=== PATIENT | female | born 1970 | race Asian ===

== ENCOUNTER → 2016-07-15 | Outpatient (CLI) | payer OTHER ==
[~2016-07-15] MED LIST: ASPCH81 PO; MULTCHW PO; OMEG10007 PO; PANT1TAB48 PO; VIVELLE TOP
--- NOTE | 2016-07-15 16:26 | MAMMOGRAPHY REPORT ---
BILATERAL DIGITAL SCREENING MAMMOGRAM TOMOSYNTHESIS WITH CAD: 07/15/2016 CLINICAL HISTORY: Routine screening. Patient has no complaints. TECHNIQUE: Breast tomosynthesis in addition to standard 2D mammography was performed. Current study was also evaluated with a Computer Aided Detection (CAD) system. COMPARISON: Comparison is made to exams dated: 07/13/2015 mammogram, 07/10/2014 mammogram, 07/22/2013 mammogram, 07/02/2012 mammogram, and 06/29/2011 mammogram - [facility]. BREAST COMPOSITION: The tissue of both breasts is heterogeneously dense, which may obscure small ma sses. FINDINGS: No suspicious masses, calcifications, or areas of architectural distortion are noted in e ither breast. There has been no significant interval change compared to prior exams. IMPRESSION: ACR BI-RADS CATEGORY 1: NEGATIVE There is no mammographic evidence of malignancy. A 1 year screening mammogram is recommended. The p atient will receive written notification of the results. Approximately 10% of breast cancers are not detected with mammography. A negative mammographic repor t should not delay biopsy if a clinically suggestive mass is present. Valentine Engel M.D. /:07/15/2016 14:43:37 Vice President: Pauline CUELLARR M, [facility] letter sent: Normal 1/2 BI-RADS Code: ACR BI-RADS Category 1: Negative
== END | disposition home or self-care (01) ==
LOC: C.MAMM 14:09
PROVIDERS: ATTEND Internal Medicine
DX: Z12.31 Encounter for screening mammogram for malignant neoplasm of breast (principal)

== ENCOUNTER → 2017-01-02 | Outpatient (CLI) | payer OTHER ==
[2017-01-02 16:51] LABS: BASO % 0.2 %; BASO ABS # 0.01 K/uL (0-0.2); COMPLETE YES; EOS % 1.1 %; HEMATOCRIT 41.6 % (37-47); IG% 0.2 %; LYMPH % 35.1 %; LYMPH ABS # 1.63 K/uL (1.2-3.4); MEAN CELL VOLUME 93.7 fL (80-100); MEAN CORPUSCULAR HGB CONC 34.1 g/dl (32-36); MEAN PLATELET VOLUME 9.8 fL (7.4-10.4); MONO % 7.3 %; NEUT % 56.1 %; PLATELET COUNT 428 K/uL (130-400); RED BLOOD COUNT 4.44 M/uL (4.2-5.4); WHITE BLOOD COUNT 4.64 K/uL (4.8-10.8)
== END | disposition home or self-care (01) ==
LOC: C.LABBC 12:57
PROVIDERS: ATTEND Internal Medicine
DX: R53.83 Other fatigue (principal)

== ENCOUNTER → 2017-07-17 | Outpatient (CLI) | payer OTHER ==
[~2017-07-17] MED LIST changes: +PANT1TAB3 PO; -PANT1TAB48 PO
--- NOTE | 2017-07-18 14:37 | MAMMOGRAPHY REPORT ---
BILATERAL DIGITAL SCREENING MAMMOGRAM TOMOSYNTHESIS WITH CAD: 07/17/2017 CLINICAL HISTORY: Routine screening. Patient has no complaints. TECHNIQUE: Breast tomosynthesis in addition to standard 2D mammography was performed. Current study was also evaluated with a Computer Aided Detection (CAD) system. COMPARISON: Comparison is made to exams dated: 07/15/2016 mammogram, 07/10/2014 mammogram, 01/06/2014 u ltrasound, 07/04/2013 mammogram, 07/02/2012 mammogram, and 06/29/2011 mammogram - [facility]. BREAST COMPOSITION: The tissue of both breasts is heterogeneously dense, which may obscure small mas ses. FINDINGS: The parenchymal pattern is unchanged. No developing mass, architectural distortion or clus ter of suspicious microcalcifications is seen in either breast. IMPRESSION: ACR BI-RADS CATEGORY 2: BENIGN There is no mammographic evidence of malignancy. A 1 year screening mammogram is recommended. The pa tient will receive written notification of the results. Approximately 10% of breast cancers are not detected with mammography. A negative mammographic report should not delay biopsy if a clinically suggestive mass is present. Consuelo Acosta M.D. ay/:07/17/2017 14:59:52 Desolderer: Jazmin CUELLAR(R)(Janet), [facility] letter sent: Normal 1/2 BI-RADS Code: ACR BI-RADS Category 2: Benign
== END | disposition home or self-care (01) ==
LOC: C.MAMM 14:12
PROVIDERS: ATTEND Internal Medicine
DX: Z12.31 Encounter for screening mammogram for malignant neoplasm of breast (principal)

== ENCOUNTER → 2017-08-21 | Outpatient (CLI) | payer OTHER ==
[2017-08-21 11:57] LABS: EOS % 0.3 %; EOS ABS # 0.01 K/uL (0-0.5); HEMATOCRIT 40.3 % (37-47); LYMPH ABS # 1.36 K/uL (1.2-3.4); MEAN CELL VOLUME 95.5 fL (80-100); MEAN CORPUSCULAR HEMOGLOBIN 33.2 pg (25-34); MEAN CORPUSCULAR HGB CONC 34.7 g/dl (32-36); MEAN PLATELET VOLUME 10.1 fL (7.4-10.4); MONO % 11.6 %; MONO ABS # 0.35 K/uL (0.11-0.59); NEUT % 43.1 %; PLATELET COUNT 303 K/uL (130-400); RED CELL DISTRIBUTION WIDTH CV 12.2 % (11.5-14.5); RED CELL DISTRIBUTION WIDTH SD 42.6 fL (36.4-46.3); WHITE BLOOD COUNT 3.02 K/uL (4.8-10.8)
== END | disposition home or self-care (01) ==
LOC: C.LAB1850 11:07
PROVIDERS: ATTEND Internal Medicine
DX: D47.3 Essential (hemorrhagic) thrombocythemia (principal)

== ENCOUNTER → 2017-10-10 | Outpatient (CLI) | payer OTHER | END | disposition home or self-care (01) | LOC: C.PATHSPEC 16:46 | PROVIDERS: ATTEND Urology | DX: N39.46 Mixed incontinence (principal) ==

== ENCOUNTER 2023-12-23 08:55 | Inpatient (IN) ==
[2023-12-23 09:42] LABS: Basophils # (auto) 0.01 K/uL (0.00-0.20); Basophils % (auto) 0.1 %; Eosinophils # (auto) 0.03 K/uL (0.00-0.50); Eosinophils % (auto) 0.4 %; Hematocrit (blood only) 33.9 % (37.0-47.0); Hemoglobin 11.6 g/dl (12.0-16.0); Immature Granulocytes # (auto) 0.02 K/uL (0.01-0.20); Immature Granulocytes % (auto) 0.3 %; Lymphocytes # (auto) 0.75 K/uL (1.20-3.40); Lymphocytes % (auto) 10.1 %; Mean Corpuscular Hgb Conc 34.2 g/dL (32.0-36.0); Mean Corpuscular Volume 93.6 fL (80.0-100.0); Mean Platelet Volume 9.5 fL (9.4-12.4); Monocytes # (auto) 0.63 K/uL (0.11-0.59); Monocytes % (auto) 8.5 %; Neutrophils # (auto) 5.97 K/uL (1.40-6.50); Neutrophils % (auto) 80.6 %; Platelet Count 347 K/uL (130-400); RDW Coefficient of Variation 11.6 % (11.5-14.5); RDW Standard Deviation 39.3 fL (36.4-46.3); Red Blood Count 3.62 M/uL (4.20-5.40); White Blood Count 7.41 K/ul (4.8-10.8)
[2023-12-23 09:53] LABS: Appearance Urine Cloudy (Clear); Bacteria Urine Automated None Seen (None Seen); Bilirubin Urine Negative (Negative); Blood Urine 3+ (Negative); Cast Urine Automated 0-2 /lpf (0-2); Color Urine Dark Yellow; Epithelial Cell Urine Auto 0-2 /hpf (0-2); Glucose Urine UA Negative (Negative); Ketones Urine Negative (Negative); Leukocyte Esterase Urine Trace (Negative); Nitrite Urine Positive (Negative); Protein Urine 1+ (Negative); Specific Gravity Urine 1.006 (1.000-1.030); Urobilinogen Urine Negative (Negative); WBC Urine Automated 0-5 /hpf (0-5); pH Urine 5.5 (4.5-7.5)
[2023-12-23 10:08] LABS: Albumin Globulin Ratio 1.5 (0.9-2); Albumin Level 4.2 gm/dl (3.4-5.0); BUN Creatinine Ratio 10.1 (10-20); Bilirubin,Total 0.7 mg/dl (0.2-1.0); Calcium 9.3 mg/dl (8.6-10.3); Creatinine Clr Calc Pharmacy 18.1 ml/min; Est GFR (African American) 18.3 ml/min; Est GFR (Non-African American) 15.8 ml/min; Globulin 2.8 gm/dl (2.5-4.0); Potassium 4.3 mmol/L (3.5-5.1)
[2023-12-23] MEDS: SODIUM CHLORIDE 0.9% 500 ML IV ONE (10:18)
[2023-12-23] MEDS: ONDANSETRON INJ 2 MG/ML 2 ML VIAL IV STA (10:18)
[2023-12-23] MEDS: HYDROmorphone INJ 0.5 MG/0.5 ML SYR IV PRN (10:18)
--- NOTE | 2023-12-23 11:00 | CT Scan Report ---
CT OF THE ABDOMEN AND PELVIS WITHOUT CONTRAST CLINICAL HISTORY: Generalized abdominal, recent laser stone removal, acute RF. COMPARISON STUDY: CT of the abdomen and pelvis December 15, 2023. TECHNIQUE: Axial images of the abdomen and pelvis were obtained without IV contrast. Images were revi ewed in the axial, sagittal, and coronal planes. Automated exposure control was utilized for the sameer dy. A dose lowering technique was utilized adhering to the principles of ALARA. FINDINGS: Lung bases are unremarkable. No pneumatosis, free air or portal venous gas is present. Ther e is hepatic steatosis. No biliary or pancreatic ductal dilatation is present. The spleen, adrenal gl ands and pancreas are unremarkable on unenhanced exam. There is no evidence for a bowel obstruction. A small amount of presacral/perirectal fluid and stranding is present. There is no fluid collection. Right ureteral stent is well-positioned. There is mild bilateral hydronephrosis. No ureteral calculi are present. There is a punctate left renal calculus. The bladder is significantly distended. A small amount of gas within the bladder is present. A 6.4 x 4.2 cm round hyperdensity within the dependent aspect the bladder suggests clot. There is also a small amount of hyperdense material within the righ t collecting system. IMPRESSION: 1. Right ureteral stent in place. No ureteral calculi. Punctate left renal calculus. Mild bilateral h ydronephrosis, likely related to bladder distention. 2. Significantly distended bladder which contains a 6.4 x 4.2 cm hyperdense focus suggestive of clot. Hyperdense material within the right collecting system suggests clot. Contrast from recent procedure could appear similar but is considered less likely. 3. Trace gas within the bladder related to recent instrumentation. 4. Small amount of presacral/perirectal fluid and stranding. ACT 112: Negative or not required by law. Electronically signed by: Dre Mendez M.D. 12/23/2023 10:57 AM
--- NOTE | 2023-12-23 11:14 | History & Physical Report ---
Date of Service December 23, 2023 Assessment & Plan (1) Acute renal failure: Plan: Admit to med/telemetry Currently stable and nontoxic-appearing Presented to the ED today with ongoing abdominal pain/distention, back pain, and dizziness since her urologic procedure on 12/21/2023 Creatinine noted to be 3.17 today, baseline creatinine prior to her procedure was 0.6 CT of the abdomen pelvis without contrast shows her recently placed right ureteral stent in proper position, mild bilateral hydronephrosis, significantly distended bladder containing hyperdense foci suggestive of clots as well as hyperdense material within the right collecting system suggestive of clots. Patient's renal failure likely due to obstruction from urinary retention likely caused by clots from her recent urologic procedure The ED staff did speak with on-call urology, appreciate their assistance, they agree with the plan to place Cleary catheter at this time, start bladder irrigation to assist with clot removal, and ongoing monitoring for now I did discuss the patient with the urology team as well, no current plans for OR at this time as the stent is in proper position and the patient is without significant hydronephrosis, they are okay with the patient eating at this time Status post 500 mL normal saline, 0.5 mg IV Dilaudid, and 0.4 mg IV Zofran in the ED At the time of admission nurses have tried a 16 and 18 [place] Cleary catheter without success, they will try a larger size now. I did let urology know that we will keep the patient n.p.o. until Cleary catheter has been successfully inserted and confirmed to be functioning properly in case she needs to be taken to the OR this afternoon Will wait to order additional IV fluids until we confirm proper Cleary placement and drainage as we do not want to exacerbate her already known obstruction Monitor intake/output every 6 hours Urology consult placed Patient was prescribed a 5-day course of Levaquin on 11/20/2023 after procedure, no signs of infection at this time, will hold further dosing until we ensure her renal function is improving Will repeat BMP and mag this afternoon to ensure her renal function is improving with treatment of her obstruction As needed Tylenol and Dilaudid for pain Bilateral SCDs for DVT prophylaxis Renal dialysis diet until renal function improves AM CBC, BMP, mag, PT/INR (2) Urinary retention: Plan: Patient noted to have significant bladder distention on CT of the abdomen pelvis without contrast, likely due to postprocedural blood clots causing bladder outlet obstruction UA not suggestive of infection at this time, will hold antibiotics for now Rest of plan per acute renal failure (3) Abdominal pain: Plan: Patient's abdominal and back pain are likely due to her known bladder outlet obstruction, significant distention, and mild bilateral hydronephrosis Rest of care per acute renal failure plan Plan The patient was discussed with Dr. Pritchett at the time of the admission History of Present Illness Chief Complaint: abdominal pain, back pain, dizziness Primary Care Provider: Daryn Wilburn MD Iqra is a 53-year-old female with a past medical history significant for Nephrolithiasis status post cystoscopy with right ureteroscopy, retrograde pyelogram, ureteral dilation, laser destruction of stone, incision of calyceal diverticulum, and insertion of stent catheter with Dr. Lea on 12/21/2023, schwannoma/left-sided neck mass status post removal on 03/14/2029, cervical cancer status post hysterectomy, and adjustment disorder with anxiety who presented to the [facility] ED on 12/23/2023 with complaints of abdominal pain, back pain, dizziness since her urologic procedure on 12/21/2023. She was noted to be tachycardic at 95 on arrival but otherwise stable. Labs were significant for hemoglobin of 11.6 (down from 13.9 on 11/29/2023), creatinine of 3.17 (baseline is near 0.6), BUN of 32, sodium of 133, and UA with cloudy urine, 1+ protein, 3+ blood, and nitrate positive, trace leukocyte esterase, 3-5 RBC, and negative for WBC and bacteria. CT of the abdomen pelvis without contrast was read as right ureteral stent in place. No ureteral calculi. Punctate left renal calculus. Mild bilateral hydronephrosis, likely related to bladder distention. Significantly distended bladder which demonstrates a 6.4 x 4.2 cm hyperdense focus suggestive of a clot. Hyperdense material within the right collecting system suggest clot contrast from recent procedure could appear similar but is considered less likely. Trace gas within the bladder related to recent instrumentation. Small amount of presacral/perirectal fluid and stranding without fluid collection. Prior to admission the patient was given 500 mL normal saline, 4 mg IV Zofran, and 0.5 mg IV Dilaudid.The ED did speak with neurology who was in agreement with Cleary catheter placement, they also rec ommended bladder irrigation as the blood clots noted on CT are likely causing her obstruction. Patient was lying in bed in mild distress due to abdominal discomfort at the time of the exam with her bedside, history was obtained from both. They confirm that the patient has had ongoing difficulty urinating with progressive bladder distention and abdominal pain since her procedure on 12/21/2023. Her back pain progressed after her abdominal pain. No recent fever/chills, chest pain, shortness of breath/cough, nausea/vomiting, diarrhea, and recent trauma. When asked, they state that she has been using the prescribed Percocet and Pyridium for pain. They deny the patient using recent NSAIDs. Please refer to Dr. Pritchett's attestation for any changes to the treatment plan. Allergies Allergy/AdvReac Type Severity Reaction Status Date / Time promethazine Allergy Mild HALLUCINATI Verified 12/23/23 11:48 ONS chlorpheniramine Allergy Unknown HEART RACES Verified 12/23/23 11:48 dextromethorphan Allergy Unknown HEART RACED Verified 12/23/23 11:48 phenylpropanolamine Allergy Unknown Unknown Verified 12/23/23 11:48 pseudoephedrine Allergy Unknown HEART RACED Verified 12/23/23 11:48 amitriptyline AdvReac Unknown Unknown Verified 12/23/23 11:48 citalopram [From Celexa] AdvReac Unknown Unknown Verified 12/23/23 11:48 escitalopram [From Lexapro] AdvReac Unknown Unknown Verified 12/23/23 11:48 sertraline AdvReac Unknown Unknown Verified 12/23/23 11:48 solifenacin [From Vesicare] AdvReac Unknown Unknown Verified 12/23/23 11:48 CONTAC COLD MEDICINE Allergy Unknown HEART RACES Uncoded 12/23/23 11:48 Home Medications Medication Instructions Recorded Confirmed Type aspirin 81 mg tablet,delayed 81 mg PO QAM 07/12/18 12/23/23 History release (Aspir-) cholecalciferol (vitamin D3) 25 1,000 unit PO QAM 07/12/18 12/23/23 History mcg (1,000 unit) capsule (Vitamin D3) multivitamin 1 tab PO QAM 07/12/18 12/23/23 History omeprazole 40 mg capsule,delayed 40 mg PO QAM #90 caps 08/24/23 12/23/23 Rx release ascorbic acid (vitamin C) 500 mg 500 mg PO QAM 12/13/23 12/23/23 History capsule mirabegron 50 mg tablet,extended 50 mg PO QAM 12/13/23 12/23/23 History release 24 hr (Myrbetriq) levofloxacin 500 mg tablet 500 mg PO DAILY 5 days #5 tabs 12/21/23 12/23/23 Rx oxycodone-acetaminophen 7.5 mg-325 1 tab PO Q8H PRN pain #7 tabs 12/21/23 12/23/23 Rx mg tablet (Percocet) phenazopyridine 200 mg tablet 200 mg PO Q8H PRN pain #10 tabs 12/21/23 12/23/23 Rx (Pyridium) tamsulosin 0.4 mg capsule 0.4 mg PO HS #30 caps 12/21/23 12/23/23 Rx venlafaxine 75 mg capsule,extended 75 mg PO QAM 12/23/23 12/23/23 History release 24 hr Past Med/Surg History Problem List (Updated 12/23/23 @ 12:10 by Pablo Lowery MD) Acute urinary retention (Acute) Acute renal failure (Acute) Abdominal pain Urinary retention Acute renal failure Kidney stones Arthritis of carpometacarpal (CMC) joint of right thumb Globus sensation Numbness and tingling of right leg Right leg pain Dyspnea on exertion Temporomandibular joint (TMJ) pain Blurry vision Daily headache Dizziness Osteoarthritis of carpometacarpal joint of left thumb Hyperlipidemia Unsatisfactory cervical cytology smear Routine gynecological examination Hot flashes Elevated platelet count Neck pain Pes anserinus bursitis of both knees Adjustment disorder with anxiety (Acute) Low back pain (Acute) Health care maintenance 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 (Acute) 1B- 2003-post abdominal hysterectomy with lymph node dissection/radiotherapy with chemo sensitization November 19, 2003 Stress incontinence in female (Acute) Urinary bladder incontinence Medical History (Updated 12/23/23 @ 12:10 by Pablo Lwoery MD) Stress incontinence in female Adjustment disorder with anxiety Osteoarthritis of carpometacarpal (CMC) joint of left thumb Radiation cystitis Hyperlipidemia TMJ (temporomandibular joint syndrome) "only have problems when I eat something hard" Lumbar radiculopathy denies Cervical cancer S/p hysterectomy with lymph node dissection and XRT and chemo () Sensation of lump in throat occasionally per patient Schwannoma post resection - 03/14/2019 - in [facility] Colitis UNDER CONTROL GERD (gastroesophageal reflux disease) Surgical History History of cystoscopy cysto, mid-urethral sling 09/13/21: [place]: LMA#4 without issue History of surgery on left wrist left thumb CMC joint; 11/16/23 [facility] Hx of foot surgery LEFT-BONE GRAFT History of esophagogastroduodenoscopy (EGD) History of colonoscopy History of hysterectomy total hyster 2004 Family History Father Myocardial infarction Hypertension Mother Myocardial infarction Hypertension Stroke Diabetes Grandfather (Maternal) Diabetes Social History Smoking Status: Never smoker Second Hand Exposure: No; Do You Dip or Chew Tobacco: No; Hx Alcohol Use: No Hx Substance Use: No Preferred Language: Lao Communication Ability: Effective Visual Impairment: No Limitations 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: 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 Beliefs That Will Affect Care: None marital status: Current Living Situation: Spouse current occupational status: employed current occupation: [employer] Feels Safe at Home: Yes Childhood Exposure to Second-Hand Smoke: Yes Diet: regular Dental Care, Regularly: Yes Physical Activity Frequency: 1-2 Times per Week Seatbelt Use: always Sunscreen Use: Yes Assistive Devices: Glasses Physical Exam Physical Exam: Physical Exam: General: In mild distress, stated age, well-nourished, non-toxic appearing HEENT: Normocephalic, atraumatic, no scleral icterus, pupils around round, symmetrical, and reactive to light, moist mucus membranes, trachea midline, no thyromegaly Chest/Pulm: No respiratory distress, symmetrical chest expansion, clear breath sounds throughout Cardiac: RRR, no murmurs noted Abdomen: Abdomen is distended but without signs of bruising, normoactive bowel sounds, soft, tender to palpation throughout but most tender in the suprapubic region Musculoskeletal: Symmetrical and without signs of acute trauma, upper and lower extremities with full ROM, no atrophy, spasticity, or flaccidity Extremities: Radial, dorsalis pedis, and posterior tibial pulses are intact and symmetrical, no edema noted in the BL LE's Skin: Warm, dry, no rashes , lesions, or scars noted Neuro: Alert and oriented to person, place, month, year, and president, no focal defects, no tremors noted Psych: Mild distress, calm and cooperative during the exam Results & Data Results & Data Vital Signs (Past 12 Hours) Vital Signs Temp Pulse Pulse Resp BP BP Pulse Ox 12/23/23 10:43 78 16 103/73 90 12/23/23 09:44 73 12/23/23 09:39 80 18 95 12/23/23 08:58 36.8 C 95 H 18 133/86 96 O2 Del Method 12/23/23 10:43 Room Air 12/23/23 09:44 12/23/23 09:39 Room Air 12/23/23 08:58 Room Air Laboratory Results Abnormal lab results 12/23/23 12/23/23 Range/Units 09:00 09:22 RBC 3.62 L (4.20-5.40) M/uL Hgb 11.6 L (12.0-16.0) g/dl Hct 33.9 L (37.0-47.0) % Lymph # (Auto) 0.75 L (1.20-3.40) K/uL [place] # (Auto) 0.63 H (0.11-0.59) K/uL Sodium 133 L (136-145) mmol/L BUN 32 H (6-23) mg/dl Creatinine 3.17 H (0.6-1.2) mg/dl Glucose 118 H (70-99(Fasting)) mg/dl Urine Appearance Cloudy A (Clear) Urine Protein 1+ H (Negative) Urine Blood 3+ H (Negative) Urine Nitrite Positive A (Negative) Ur Leukocyte Esterase Trace H (Negative) Urine RBC (Auto) 3-5 H (0-2) /hpf Diagnostic Findings Abdomen/Pelvis CT 12/23/23 10:12 CT OF THE ABDOMEN AND PELVIS WITHOUT CONTRAST CLINICAL HISTORY: Generalized abdominal, recent laser stone removal, acute RF. COMPARISON STUDY: CT of the abdomen and pelvis December 15, 2023. TECHNIQUE: Axial images of the abdomen and pelvis were obtained without IV contrast. Images were reviewed in the axial, sagittal, and coronal planes. Automated exposure control was utilized for the study. A dose lowering technique was utilized adhering to the principles of ALARA. FINDINGS: Lung bases are unremarkable. No pneumatosis, free air or portal venous gas is present. There is hepatic steatosis. No biliary or pancreatic ductal dilatation is present. The spleen, adrenal glands and pancreas are unremarkable on unenhanced exam. There is no evidence for a bowel obstruction. A small amount of presacral/perirectal fluid and stranding is present. There is no fluid collection. Right ureteral stent is well-positioned. There is mild bilateral hydronephrosis. No ureteral calculi are present. There is a punctate left renal calculus. The bladder is significantly distended. A small amount of gas within the bladder is present. A 6.4 x 4.2 cm round hyperdensity within the dependent aspect the bladder suggests clot. There is also a small amount of hyperdense material within the right collecting system. IMPRESSION: 1. Right ureteral stent in place. No ureteral calculi. Punctate left renal calculus. Mild bilateral hydronephrosis, likely related to bladder distention. 2. Significantly distended bladder which contains a 6.4 x 4.2 cm hyperdense focus suggestive of clot. Hyperdense material within the right collecting system suggests clot. Contrast from recent procedure could appear similar but is considered less likely. 3. Trace gas within the bladder related to recent instrumentation. 4. Small amount of presacral/perirectal fluid and stranding. ACT 112: Negative or not required by law. Electronically signed by: Dre Mendez M.D. 12/23/2023 10:57 AM Code Status & VTE Plan Code Status full code VTE Prophylaxis Plan VTE Prophylaxis will be ordered: Yes Supervising Physician Co-Signing Physician Notes patient was seen and examined , presents after Cystoscopy with right Ureteroscopy, Retrograde Pyelogram, Ureteral Dilation, Laser Destruction of Stone, Incision of calyceal diverticulum, and Insertion of Stent Catheter - Right, tolerated procedure well, she was not able to urinate well after procedure, blood work is consistent with [place], urinary bladder clot, cleary placed, 1.4 l of urine drained, she reports feeling much better GENERAL: Awake, alert, uncomfortable-appearing, in no distress HENT: Normocephalic, atraumatic. Oropharynx unremarkable. EYES: Normal conjunctiva. Sclera non-icteric. NECK: Inspection normal. Non-tender. Supple. No nuchal rigidity. FROM. No masses. RESPIRATORY: Clear to auscultation. No wheezes. No rales. Normal respiratory effort. CARDIAC: Normal rate. Normal rhythm. No murmurs. No rubs. Extremities warm and well perfused. Pulses equal. No JVD. GI: Soft, mild-distended. Generalized but mostly lower tenderness to palpation. No rebound or guarding. No masses. RECTAL: Deferred. MUSCULOSKELETAL: Atraumatic. Chest examination reveals no tenderness. The back is symmetrical on inspection without obvious abnormality. There is bilateral CVA tenderness to palpation. No joint edema. LOWER EXTREMITIES: Calves are equal size bilaterally and non-tender. No edema. No discoloration. NEURO: Normal sensorium. No sensory or motor deficits noted. SKIN: No rash or jaundice noted. A/P mild hyponatremia /acute renal failure due to obstruction, cleary placed 1.4 l of urine drained IV fluids BMP laxatives diet as tolerated minimize use of narcotics agree with above assessment and plan PG Care Time/CCT Total # of Minutes Spent Total Time Spent with Patient: Total time spent is greater than 50% in coordination of care (as documented) at patient's floor/unit and/or counseling patient: C[place] [address] INT INP/OBS CARE 2/55MIN Patient Type Established Medical Decision Making Moderate Complexity Diagnoses Acute renal failure N17.9 Urinary retention R33.9 Abdominal pain R10.9
[2023-12-23] MEDS ORDERED: HYDROmorphone INJ 0.5 MG/0.5 ML SYR IV PRN (11:23)
--- NOTE | 2023-12-23 12:11 | Emergency Department Note ---
Impression & Plan Acute renal failure, Acute urinary retention ED Provider Note NAME: FRED FERNANDEZ AGE: 53 SEX: Female INFORMANT: Patient and significant other ED PROVIDER(S): Pablo Lowery MD CHIEF COMPLAINT: Abdominal pain PLAN: Disposition: Admitted Outpatient prescription management: none Referral: None MEDICAL DECISION MAKING: Patient with no abdominal pain. She was treated with Zofran and Dilaudid. She was gently hydrated. CBC was unremarkable. Patient was afebrile. She does have acute renal failure on chemistry panel. Patient does have marked urinary retention on CT imaging. Yin catheter ordered. Did consult with urology, Dr. Butler. He agreed with catheter placement and also bladder irrigation. This was ordered. Suspect acute urinary retention causing acute renal failure. Consultation was made with the [facility] hospitalist service. Discussed the case and diagnostics as well as consultation with urology. Patient will be admitted by the hospitalist service for further management. Care/management discussed with: none Level of care consideration(s): After review of the information above and other included data, I feel the patient requires escalation of care to admission Triage Nursing notes: reviewed and agree them. Vital Signs: reviewed and remarkable for no significant abnormalities Additional History obtained from: none Chronic Medical/Social Conditions affecting care: History of cervical cancer Prior/ Outside/ External records reviewed: Operative note from 2 days ago reviewed. Patient had laser stone removal with stent placement. Differential Diagnosis: Renal colic, UTI, appendicitis, diverticulitis, mesenteric ischemia, aortic pathology, infections, inflammatory bowel disease, PUD, biliary pathology, as well as other pathologies. Diagnostics, independently interpreted by me: ECG: none Cardiac Monitoring: Cardiac monitoring ordered by me: The patient was placed on continuous cardiac monitoring and observed. It revealed a normal sinus rhythm at 78 beats per minute without ectopy or evidence of dysrhythmia. Medical decision rules: none Imaging studies: CT imaging of the abdomen pelvis reveals marked bladder distention with clot in the bladder. Stent is in place. I refer you to the EMR for further details. HPI: 53 year old Female arrives for evaluation of abdominal pain. Patient has had a laser kidney stone removal 2 days ago by [facility] urology. She notes after surgery she was feeling bloated. She is having difficulty urinating. She had pain radiating throughout her abdomen now. Pain is rated a 7 out of 10. Significant other notes that he contacted the on-call service and nurse directed them to the ER. Pt denies LOC, headache, fevers, chills, diaphoresis, visual changes, neck pain, chest pain, breathing difficulties, vomiting back pain, melena, hematochezia, numbness, weakness, lymphadenopathy, rash, or other complaints. . PAST MEDICAL HISTORY: See Below, cervical cancer, kidney stones PAST SURGICAL HISTORY: See Below, SOCIAL HISTORY: See Below, non-smoker HOME MEDICATIONS: See Below ALLERGIES: See Below VITALS: See Below PHYSICAL EXAMINATION: GENERAL: Awake, alert, uncomfortable-appearing, in no distress HENT: Normocephalic, atraumatic. Oropharynx unremarkable. EYES: Normal conjunctiva. Sclera non-icteric. NECK: Inspection normal. Non-tender. Supple. No nuchal rigidity. FROM. No masses. RESPIRATORY: Clear to auscultation. No wheezes. No rales. Normal respiratory effort. CARDIAC: Normal rate. Normal rhythm. No murmurs. No rubs. Extremities warm and well perfused. Pulses equal. No JVD. GI: Soft, mild-distended. Generalized but mostly lower tenderness to palpation. No rebound or guarding. No masses. RECTAL: Deferred. MUSCULOSKELETAL: Atraumatic. Chest examination reveals no tenderness. The back is symmetrical on inspection without obvious abnormality. There is bilateral CVA tenderness to palpation. No joint edema. LOWER EXTREMITIES: Calves are equal size bilaterally and non-tender. No edema. No discoloration. NEURO: Normal sensorium. No sensory or motor deficits noted. SKIN: No rash or jaundice noted. PROCEDURES: none CRITICAL CARE: none OBSERVATION NOTE: none Past Med/Surg History Problem List (Updated 12/23/23 @ 12:10 by Pablo Lowery MD) Acute urinary retention (Acute) Acute renal failure (Acute) Abdominal pain Urinary retention Acute renal failure Kidney stones Arthritis of carpometacarpal (CMC) joint of right thumb Globus sensation Numbness and tingling of right leg Right leg pain Dyspnea on exertion Temporomandibular joint (TMJ) pain Blurry vision Daily headache Dizziness Osteoarthritis of carpometacarpal joint of left thumb Hyperlipidemia Unsatisfactory cervical cytology smear Routine gynecological examination Hot flashes Elevated platelet count Neck pain Pes anserinus bursitis of both knees Adjustment disorder with anxiety (Acute) Low back pain (Acute) Health care maintenance 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 (Acute) 1B- 2004-post abdominal hysterectomy with lymph node dissection/radiotherapy with chemo sensitization November 19, 2003 Stress incontinence in female (Acute) Urinary bladder incontinence Medical History (Updated 12/23/23 @ 12:10 by Pablo Lowery MD) Stress incontinence in female Adjustment disorder with anxiety Osteoarthritis of carpometacarpal (CMC) joint of left thumb Radiation cystitis Hyperlipidemia TMJ (temporomandibular joint syndrome) "only have problems when I eat something hard" Lumbar radiculopathy denies Cervical cancer S/p hysterectomy with lymph node dissection and XRT and chemo () Sensation of lump in throat occasionally per patient Schwannoma post resection - 03/14/2019 - in [facility] [place] Colitis UNDER CONTROL GERD (gastroesophageal reflux disease) Surgical History History of cystoscopy cysto, mid-urethral sling 09/13/21: [place]: LMA#4 without issue History of surgery on left wrist left thumb CMC joint; 11/16/23 [facility] [place] Hx of foot surgery LEFT-BONE GRAFT History of esophagogastroduodenoscopy (EGD) History of colonoscopy History of hysterectomy total hyster 2005 Family History Father Myocardial infarction Hypertension Mother Myocardial infarction Hypertension Stroke Diabetes Grandfather (Maternal) Diabetes Social History Smoking Status: Never smoker Second Hand Exposure: No; Do You Dip or Chew Tobacco: No; Hx Alcohol Use: No Hx Substance Use: No Preferred Language: Swazi Communication Ability: Effective Visual Impairment: No Limitations 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: Normal 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: No Beliefs That Will Affect Care: None marital status: Current Living Situation: Spouse current occupational status: employed current occupation: [employer] Feels Safe at Home: Yes Childhood Exposure to Second-Hand Smoke: Yes Diet: regular Dental Care, Regularly: Yes Physical Activity Frequency: 1-2 Times per Week Seatbelt Use: always Sunscreen Use: Yes Assistive Devices: Glasses Allergies Allergies Allergy/AdvReac Type Severity Reaction Status Date / Time promethazine Allergy Mild HALLUCINATI Verified 12/23/23 11:48 ONS chlorpheniramine Allergy Unknown HEART RACES Verified 12/23/23 11:48 dextromethorphan Allergy Unknown HEART RACED Verified 12/23/23 11:48 phenylpropanolamine Allergy Unknown Unknown Verified 12/23/23 11:48 pseudoephedrine Allergy Unknown HEART RACED Verified 12/23/23 11:48 amitriptyline AdvReac Unknown Unknown Verified 12/23/23 11:48 citalopram [From Celexa] AdvReac Unknown Unknown Verified 12/23/23 11:48 escitalopram [From Lexapro] AdvReac Unknown Unknown Verified 12/23/23 11:48 sertraline AdvReac Unknown Unknown Verified 12/23/23 11:48 solifenacin [From Vesicare] AdvReac Unknown Unknown Verified 12/23/23 11:48 CONTAC COLD MEDICINE Allergy Unknown HEART RACES Uncoded 12/23/23 11:48 Home Meds Home Medications Medication Instructions Recorded Confirmed aspirin 81 mg tablet,delayed 81 mg PO QAM 07/12/18 12/23/23 release (Aspir-) cholecalciferol (vitamin D3) 25 1,000 unit PO QAM 07/12/18 12/23/23 mcg (1,000 unit) capsule (Vitamin D3) multivitamin 1 tab PO QAM 07/12/18 12/23/23 ascorbic acid (vitamin C) 500 mg 500 mg PO QAM 12/13/23 12/23/23 capsule mirabegron 50 mg tablet,extended 50 mg PO QAM 12/13/23 12/23/23 release 24 hr (Myrbetriq) venlafaxine 75 mg capsule,extended 75 mg PO QAM 12/23/23 12/23/23 release 24 hr Previous Rx's Medication Instructions Recorded omeprazole 40 mg capsule,delayed 40 mg PO QAM #90 caps 08/24/23 release levofloxacin 500 mg tablet 500 mg PO DAILY 5 days #5 tabs 12/21/23 oxycodone-acetaminophen 7.5 mg-325 1 tab PO Q8H PRN pain #7 tabs 12/21/23 mg tablet (Percocet) phenazopyridine 200 mg tablet 200 mg PO Q8H PRN pain #10 tabs 12/21/23 (Pyridium) tamsulosin 0.4 mg capsule 0.4 mg PO HS #30 caps 12/21/23 Results & Data (ED) Vital Signs Vital Signs - 24 hr 12/23/23 08:58 12/23/23 09:39 12/23/23 09:44 Temperature 36.8 C Temperature Source Temporal Artery Scan Pulse Rate 95 H 80 73 Pulse Rate [Apical] Pulse Rhythm Regular Respiratory Rate 18 18 Blood Pressure 133/86 Blood Pressure [Left Arm] Blood Pressure Mean 101 Blood Pressure Mean [Left Arm] Pulse Oximetry 96 95 Oxygen Delivery Method Room Air Room Air Sepsis Recent Fever Within 48 Hours No Sepsis New/Unexplained Change in Mental Status No Sepsis Action Taken by Nursing No Action Required 12/23/23 10:43 12/23/23 12:08 Temperature Temperature Source Pulse Rate Pulse Rate [Apical] 78 78 Pulse Rhythm Respiratory Rate 16 16 Blood Pressure Blood Pressure [Left Arm] 103/73 109/74 Blood Pressure Mean Blood Pressure Mean [Left Arm] 83 85 Pulse Oximetry 90 94 Oxygen Delivery Method Room Air Room Air Sepsis Recent Fever Within 48 Hours Sepsis New/Unexplained Change in Mental Status Sepsis Action Taken by Nursing Laboratory Data 12/23/23 09:22 12/23/23 09:22 Lab Results 12/23/23 12/23/23 Range/Units 09:00 09:22 WBC 7.41 (4.8-10.8) K/ul RBC 3.62 L (4.20-5.40) M/uL Hgb 11.6 L (12.0-16.0) g/dl Hct 33.9 L (37.0-47.0) % MCV 93.6 (80.0-100.0) fL MCH 32.0 (25.0-34.0) pg MCHC 34.2 (32.0-36.0) g/dL RDW Std Deviation 39.3 (36.4-46.3) fL RDW Coeff of [place] 11.6 (11.5-14.5) % Plt Count 347 (130-400) K/uL MPV 9.5 (9.4-12.4) fL Immature Gran % (Auto) 0.3 % Neut % (Auto) 80.6 % Lymph % (Auto) 10.1 % [place] % (Auto) 8.5 % Eos % (Auto) 0.4 % Baso % (Auto) 0.1 % Neut # (Auto) 5.97 (1.40-6.50) K/uL Lymph # (Auto) 0.75 L (1.20-3.40) K/uL [place] # (Auto) 0.63 H (0.11-0.59) K/uL Eos # (Auto) 0.03 (0.00-0.50) K/uL Baso # (Auto) 0.01 (0.00-0.20) K/uL Immature Gran # (Auto) 0.02 (0.01-0.20) K/uL Sodium 133 L (136-145) mmol/L Potassium 4.3 (3.5-5.1) mmol/L Chloride 98 (98-107) mmol/L Carbon Dioxide 26 (21-32) mmol/L Anion Gap 9 (3-11) BUN 32 H (6-23) mg/dl Creatinine 3.17 H (0.6-1.2) mg/dl Est Cr Clr Drug Dosing 18.1 ml/min Est GFR ( Amer) 18.3 ml/min Est GFR (Non-Af Amer) 15.8 ml/min BUN/Creatinine Ratio 10.1 (10-20) Glucose 118 H (70-99(Fasting)) mg/dl Calcium 9.3 (8.6-10.3) mg/dl Total Bilirubin 0.7 (0.2-1.0) mg/dl AST 25 (13-39) U/L ALT 30 (7-52) U/L Alkaline Phosphatase 39 (34-104) U/L Total Protein 7.0 (6.0-8.3) gm/dl Albumin 4.2 (3.4-5.0) gm/dl Globulin 2.8 (2.5-4.0) gm/dl Albumin/Globulin Ratio 1.5 (0.9-2) Lipase 20 (11-82) U/L Urine Color Dark Yellow Urine Appearance Cloudy A (Clear) Urine pH 5.5 (4.5-7.5) Ur Specific [place] 1.006 (1.000-1.030) Urine Protein 1+ H (Negative) Urine Glucose (UA) Negative (Negative) Urine Ketones Negative (Negative) Urine Blood 3+ H (Negative) Urine Nitrite Positive A (Negative) Urine Bilirubin Negative (Negative) Urine Urobilinogen Negative (Negative) Ur Leukocyte Esterase Trace H (Negative) Urine WBC (Auto) 0-5 (0-5) /hpf Urine RBC (Auto) 3-5 H (0-2) /hpf U Hyaline Cast (Auto) 0-2 (0-2) /lpf U Epithel Cells (Auto) 0-2 (0-2) /hpf Urine Bacteria (Auto) None Seen (None Seen) Administered Medications Discontinued Medications Hydromorphone HCl (Hydromorphone Inj 0.5 Mg/0.5 Ml Syr) 0.5 mg IV Q15M PRN PRN Reason: Pain Stop: 01/06/24 10:11 Last Admin: 12/23/23 10:18 Dose: 0.5 mg Documented By: ALEX Sodium Chloride (Nss) 500 mls @ 999 mls/hr IV .Q31M ONE Stop: 12/23/23 10:42 Last Infusion: 12/23/23 11:32 Dose: Infused Documented By: Admin: 12/23/23 10:18 Dose: 999 mls/hr Documented By: ALEX Ondansetron HCl (Ondansetron Inj 2 Mg/Ml 2 Ml Vial) 4 mg IV NOW STA Stop: 12/23/23 10:13 Last Admin: 12/23/23 10:18 Dose: 4 mg Documented By: ALEX Imaging Data Radiologist's Impression: Abdomen/Pelvis CT 12/23/23 10:12 CT OF THE ABDOMEN AND PELVIS WITHOUT CONTRAST CLINICAL HISTORY: Generalized abdominal, recent laser stone removal, acute RF. COMPARISON STUDY: CT of the abdomen and pelvis December 15, 2023. TECHNIQUE: Axial images of the abdomen and pelvis were obtained without IV contrast. Images were reviewed in the axial, sagittal, and coronal planes. Automated exposure control was utilized for the study. A dose lowering technique was utilized adhering to the principles of ALARA. FINDINGS: Lung bases are unremarkable. No pneumatosis, free air or portal venous gas is present. There is hepatic steatosis. No biliary or pancreatic ductal dilatation is present. The spleen, adrenal glands and pancreas are unremarkable on unenhanced exam. There is no evidence for a bowel obstruction. A small amount of presacral/perirectal fluid and stranding is present. There is no fluid collection. Right ureteral stent is well-positioned. There is mild bilateral hydronephrosis. No ureteral calculi are present. There is a punctate left renal calculus. The bladder is significantly distended. A small amount of gas within the bladder is present. A 6.4 x 4.2 cm round hyperdensity within the dependent aspect the bladder suggests clot. There is also a small amount of hyperdense material within the right collecting system. IMPRESSION: 1. Right ureteral stent in place. No ureteral calculi. Punctate left renal calculus. Mild bilateral hydronephrosis, likely related to bladder distention. 2. Significantly distended bladder which contains a 6.4 x 4.2 cm hyperdense focus suggestive of clot. Hyperdense material within the right collecting system suggests clot. Contrast from recent procedure could appear similar but is considered less likely. 3. Trace gas within the bladder related to recent instrumentation. 4. Small amount of presacral/perirectal fluid and stranding. ACT 112: Negative or not required by law. Electronically signed by: Dre Mendez M.D. 12/23/2023 10:57 AM Discharge Plan Visit Data Chief Complaint: Abdominal Pain Stated Complaint: ABD PAIN,BACK PAIN, POST OP, REF BY DOC ED Provider: Pablo Lowery Discharge Problem: Acute renal failure, Acute urinary retention Forms Stand Alone Forms: [facility] Prescriptions Prescriptions: No Action omeprazole 40 mg capsule,delayed release(DR/EC) 40 mg PO QAM Qty: 90 3RF multivitamin Tablet 1 tab PO QAM aspirin [Aspir-81] 81 mg Tablet,Delayed Release (Dr/Ec) 81 mg PO QAM cholecalciferol (vitamin D3) [Vitamin D3] 1,000 unit Capsule 1,000 unit PO QAM mirabegron [Myrbetriq] 50 mg tablet extended release 24 hr 50 mg PO QAM ascorbic acid (vitamin C) 500 mg capsule 500 mg PO QAM Rx Instructions: 1 tab PO in AM; phenazopyridine [Pyridium] 200 mg tablet 200 mg PO Q8H PRN (Reason: pain) Qty: 10 0RF tamsulosin 0.4 mg capsule 0.4 mg PO HS Qty: 30 0RF levofloxacin 500 mg tablet 500 mg PO DAILY 5 Days Qty: 5 0RF Rx Instructions: Start Date 12/21/23 x5 days oxycodone-acetaminophen [Percocet] 7.5-325 mg tablet 1 tab PO Q8H PRN (Reason: pain) Qty: 7 0RF venlafaxine 75 mg capsule,extended release 24hr 75 mg PO QAM Referrals Referrals: Daryn Wilburn MD [Primary Care Provider] -
[2023-12-23] MEDS: ACETAMINOPHEN 500 MG TAB PO STA (13:11)
[2023-12-23] MEDS: LACTATED RINGER'S 1,000 ML IV SCH (14:00)
[2023-12-23 14:40] LABS: BUN Creatinine Ratio 11.8 (10-20); Calcium 8.9 mg/dl (8.6-10.3); Creatinine Clr Calc Pharmacy 23.4 ml/min; Est GFR (Non-African American) 21.6 ml/min; Magnesium 1.9 mg/dl (1.7-2.4); Potassium 4.3 mmol/L (3.5-5.1)
--- NOTE | 2023-12-23 17:56 | Urology Consultation ---
Date of Consultation December 23, 2023 Assessment & Plan (1) Acute urinary retention: (2) Acute renal failure: (3) Kidney stones: Plan Urinary retention currently managed with indwelling Yin catheter. This may have been due to post-anesthetic effect, irritation from the ureteral stent or obstruction from the blood clot. Hand irrigation reportedly removed a fair amount of clot. Would maintain catheter for now until creatinine normalizes. Creatinine was most likely elevated from bladder outlet obstruction. Already downtrending with catheter in place. Would continue to monitor. Ureteral stent appears to be in good position. This should stay in place for now. Would continue with supportive care, continue to trend creatinine and maintain Yin catheter for now. Once numbers normalize, she can have a voiding trial will be discharged home with catheter in place. Urology will follow along. History of Present Illness Reason for Consultation: Urinary retention, acute renal failure Attending Physician: Tracy Pritchett MD History of Present Illness This is a 53-year-old female followed by urology for nephrolithiasis. She underwent ureteroscopy and laser lithotripsy on 12/21/2023. Stent was left in place after her surgery. Of note, she was found to have radiation cystitis during the procedure. She was discharged home after surgery having tolerated the procedure with no immediate complications. When she was home, she developed inability to void and an increasing sense of bladder pressure and flank pain. She denies any fevers or chills. This eventually brought her back to the emergency department on 12/23/2023. Workup in the ED was notable for normal white count (WBC 7.41). Hemoglobin was slightly decreased (11.6 down from 13.9). Creatinine was significantly elevated (3.17 up from preop baseline of 0.62). CT scan of the abdomen and pelvis was performed. I independently reviewed these images. Both kidneys are in normal position. She has a ureteral stent on the right side which seems to be in good position. There may be some clot in the renal pelvis. I do not appreciate any stones. Her bladder is markedly distended with a hypodense area likely blood clot measuring 6 cm in diameter. A Yin catheter was placed with immediate output of 1.5 L and relief in her symptoms. She was admitted for ongoing monitoring. Follow-up labs identified that her creatinine was already downtrending. At the bedside, she is resting comfortably. She denies any ongoing pain. Catheter is draining well Allergies Allergy/AdvReac Type Severity Reaction Status Date / Time promethazine Allergy Mild HALLUCINATI Verified 12/23/23 11:48 ONS chlorpheniramine Allergy Unknown HEART RACES Verified 12/23/23 11:48 dextromethorphan Allergy Unknown HEART RACED Verified 12/23/23 11:48 phenylpropanolamine Allergy Unknown Unknown Verified 12/23/23 11:48 pseudoephedrine Allergy Unknown HEART RACED Verified 12/23/23 11:48 amitriptyline AdvReac Unknown Unknown Verified 12/23/23 11:48 citalopram [From Celexa] AdvReac Unknown Unknown Verified 12/23/23 11:48 escitalopram [From Lexapro] AdvReac Unknown Unknown Verified 12/23/23 11:48 sertraline AdvReac Unknown Unknown Verified 12/23/23 11:48 solifenacin [From Vesicare] AdvReac Unknown Unknown Verified 12/23/23 11:48 Home Medications Medication Instructions Recorded Confirmed Type aspirin 81 mg tablet,delayed 81 mg PO QAM 07/12/18 12/23/23 History release (Aspir-) cholecalciferol (vitamin D3) 25 1,000 unit PO QAM 07/12/18 12/23/23 History mcg (1,000 unit) capsule (Vitamin D3) multivitamin 1 tab PO QAM 07/12/18 12/23/23 History omeprazole 40 mg capsule,delayed 40 mg PO QAM #90 caps 08/24/23 12/23/23 Rx release ascorbic acid (vitamin C) 500 mg 500 mg PO QAM 12/13/23 12/23/23 History capsule mirabegron 50 mg tablet,extended 50 mg PO QAM 12/13/23 12/23/23 History release 24 hr (Myrbetriq) levofloxacin 500 mg tablet 500 mg PO DAILY 5 days #5 tabs 12/21/23 12/23/23 Rx oxycodone-acetaminophen 7.5 mg-325 1 tab PO Q8H PRN pain #7 tabs 12/21/23 12/23/23 Rx mg tablet (Percocet) phenazopyridine 200 mg tablet 200 mg PO Q8H PRN pain #10 tabs 12/21/23 12/23/23 Rx (Pyridium) tamsulosin 0.4 mg capsule 0.4 mg PO HS #30 caps 12/21/23 12/23/23 Rx venlafaxine 75 mg capsule,extended 75 mg PO QAM 12/23/23 12/23/23 History release 24 hr Patient History Medical History (Updated 12/23/23 @ 12:10 by Pablo Lowery MD) Stress incontinence in female Adjustment disorder with anxiety Osteoarthritis of carpometacarpal (CMC) joint of left thumb Radiation cystitis Hyperlipidemia TMJ (temporomandibular joint syndrome) "only have problems when I eat something hard" Lumbar radiculopathy denies Cervical cancer S/p hysterectomy with lymph node dissection and XRT and chemo () Sensation of lump in throat occasionally per patient Schwann[place] post [place] [facility] [place] UNDER CONTROL GERD (gastroesophageal reflux disease) Surgical History History of cystoscopy cysto, mid-urethral sling 09/13/21: [place]: LMA#4 without issue History of surgery on left wrist left thumb CMC joint; [place] [facility] [place]x of foot surgery LEFT-BONE GRAFT History of esophagogastroduodenoscopy (EGD) History of colonoscopy History of hysterectomy total hyster 2005 Family History Father Myocardial infarction Hypertension Mother Myocardial infarction Hypertension Stroke Diabetes Grandfather (Maternal) Diabetes Social History Smoking Status: Never smoker Second Hand Exposure: No; Do You Dip or Chew Tobacco: No; Hx Alcohol Use: No Hx Substance Use: No Preferred Language: Kittitian Communication Ability: Effective Visual Impairment: No Limitations 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: Normal 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 Physical Exam Constitutional: well developed and well nourished; no acute distress Eyes: + anicteric sclerae; pupils not irregula r Respiratory: normal respiratory effort; no respiratory distress, does not use accessory muscles and no cough Cardiovascular: well perfused Gastrointestinal (Abdomen): Inspection/Auscultation: abdomen normal to inspection; abdomen not distended Musculoskeletal: Extremities: extremities normal to inspection Skin: normal turgor; no rashes and no lesions Neurologic: moves all extremities and awake Psychiatric: Orientation: alert and oriented x 3 Genitourinary: Yin catheter in place draining red-tinged urine, no clots in the bag or tubing. Results & Data Vital Signs (Past 12 Hours) Vital Signs Temp Pulse Pulse Resp BP BP BP 12/23/23 15:12 37.0 C 78 18 90/59 L 12/23/23 14:31 83 12/23/23 13:13 95 H 12/23/23 12:53 12/23/23 12:53 37.1 C 74 16 99/65 L 12/23/23 12:53 12/23/23 12:53 37.1 C 74 16 99/65 L 12/23/23 12:08 78 16 109/74 12/23/23 10:43 78 16 103/73 12/23/23 09:44 73 12/23/23 09:39 80 18 12/23/23 08:58 36.8 C 95 H 18 133/86 Pulse Ox Pulse Ox O2 Del Method O2 Del Method O2 Flow Rate 12/23/23 15:12 92 Room Air 12/23/23 14:31 12/23/23 13:13 12/23/23 12:53 Room Air 12/23/23 12:53 92 Room Air 12/23/23 12:53 92 Room Air 0 12/23/23 12:53 92 Room Air 12/23/23 12:08 94 Room Air 12/23/23 10:43 90 Room Air 12/23/23 09:44 12/23/23 09:39 95 Room Air 12/23/23 08:58 96 Room Air PG Care Time/CCT Total # of Minutes Spent Total Time Spent with Patient: Total time spent is greater than 50% in coordination of care (as documented) at patient's floor/unit and/or counseling patient: Coding Level of Care Code 03933 OFFICE CONSULT LVL Diagnoses Acute urinary retention R33.8 Acute renal failure N17.9 Kidney stones N20.0
[2023-12-23] MEDS: TAMSULOSIN HCL 0.4 MG CAP PO SCH (20:26)
[2023-12-24] MEDS: ACETAMINOPHEN 325 MG TAB PO PRN (00:18)
[2023-12-24 07:31] LABS: Basophils # (auto) 0.02 K/uL (0.00-0.20); Basophils % (auto) 0.3 %; Eosinophils # (auto) 0.04 K/uL (0.00-0.50); Eosinophils % (auto) 0.6 %; Hematocrit (blood only) 31.6 % (37.0-47.0); Hemoglobin 10.6 g/dl (12.0-16.0); Immature Granulocytes # (auto) 0.03 K/uL (0.01-0.20); Immature Granulocytes % (auto) 0.5 %; Lymphocytes # (auto) 1.74 K/uL (1.20-3.40); Lymphocytes % (auto) 26.4 %; Mean Corpuscular Hemoglobin 31.9 pg (25.0-34.0); Mean Corpuscular Hgb Conc 33.5 g/dL (32.0-36.0); Mean Corpuscular Volume 95.2 fL (80.0-100.0); Mean Platelet Volume 9.9 fL (9.4-12.4); Monocytes # (auto) 0.69 K/uL (0.11-0.59); Monocytes % (auto) 10.5 %; Neutrophils # (auto) 4.07 K/uL (1.40-6.50); Neutrophils % (auto) 61.7 %; Platelet Count 353 K/uL (130-400); RDW Standard Deviation 41.5 fL (36.4-46.3); Red Blood Count 3.32 M/uL (4.20-5.40); White Blood Count 6.59 K/ul (4.8-10.8)
[2023-12-24 07:45] LABS: BUN Creatinine Ratio 12.9 (10-20); Calcium 8.9 mg/dl (8.6-10.3); Creatinine Clr Calc Pharmacy 49.4 ml/min; Est GFR (African American) 61.8 ml/min; Est GFR (Non-African American) 53.3 ml/min
[2023-12-24] MEDS: VENLAFAXINE HCL XR 75 MG CAPXR PO SCH (08:06)
[2023-12-24] MEDS: ASPIRIN 81 MG ECTAB PO SCH (08:06)
[2023-12-24] MEDS: VIBEGRON 75 MG TAB PO SCH (08:06)
[2023-12-24] MEDS: PANTOprazole 40 MG TAB PO SCH (08:07)
--- NOTE | 2023-12-24 09:44 | Urology Progress Note ---
Date of Service December 24, 2023 Assessment & Plan (1) Acute urinary retention: (2) Acute renal failure: (3) Kidney stones: Plan Creatinine has significantly normalized with Yin catheter in place. Urine color suggestive of breaking down clot rather than active bleeding. Would recommend voiding trial today If she is able to void, I think she could be discharged home with close follow- up If unable to void, catheter could be replaced and a voiding trial performed in the office. Admission and Anticipated Discharge Date Admission Date: December 23, 2023 Subjective Feeling well this morning, tolerating a diet with no nausea or vomiting Not having any pain from the stent Bladder is emptying much better with catheter in place Creatinine substantially down, 1.16 this morning Physical Exam Physical Exam: Well-appearing, NAD Genitourinary: Rust-colored urine in catheter, draining appropriately Results & Data Vital Signs (Past 12 Hours) Vital Signs Temp Pulse Pulse Resp BP Pulse Ox O2 Del Method 12/24/23 08:24 37.0 C 80 20 111/75 95 Room Air 12/24/23 06:09 77 12/24/23 04:33 36.7 C 86 20 96/63 L 93 Room Air 12/23/23 23:21 36.4 C L 83 16 102/68 91 Room Air 12/23/23 21:50 72 PG Care Time/CCT Total # of Minutes Spent Total Time Spent with Patient: Total time spent is greater than 50% in coordination of care (as documented) at patient's floor/unit and/or counseling patient: Coding Level of Care Code 15694 SUB INP/OBS CARE 1/25MIN Diagnoses Acute urinary retention R33.8 Acute renal failure N17.9 Kidney stones N20.0
[2023-12-24 15:47] LABS: Hematocrit (blood only) 32.1 % (37.0-47.0); Hemoglobin 10.9 g/dl (12.0-16.0)
--- NOTE | 2023-12-24 16:25 | Hospitalist Progress Note ---
Date of Service December 24, 2023 Assessment & Plan (1) Acute renal failure: Plan: Admit to med/telemetry Currently stable and nontoxic-appearing Presented to the ED today with ongoing abdominal pain/distention, back pain, and dizziness since her urologic procedure on 12/21/2023 Creatinine noted to be 3.17 today, baseline creatinine prior to her procedure was 0.6 CT of the abdomen pelvis without contrast shows her recently placed right ureteral stent in proper position, mild bilateral hydronephrosis, significantly distended bladder containing hyperdense foci suggestive of clots as well as hyperdense material within the right collecting system suggestive of clots. Patient's renal failure likely due to obstruction from urinary retention likely caused by clots from her recent urologic procedure -Consulted Urology: Tried a voiding trial on 12/23, patient contineud to have urinary retention. Re-inserted cleary catheter. due to anemia and intermittent hypotension, will monitor patient overnight. Hemoglobin in the afternoon appears stable. Patient was prescribed a 5-day course of Levaquin on 11/20/2023 after procedure, no signs of infection at this time, will hold further dosing until we ensure her renal function is improving Will repeat BMP and mag this afternoon to ensure her renal function is improving with treatment of her obstruction As needed Tylenol and Dilaudid for pain Bilateral SCDs for DVT prophylaxis creatinine improved. (2) Urinary retention: Plan: Patient noted to have significant bladder distention on CT of the abdomen pelvis without contrast, likely due to postprocedural blood clots causing bladder outlet obstruction UA not suggestive of infection at this time, will hold antibiotics for now Rest of plan per acute renal failure (3) Abdominal pain: Plan: Patient's abdominal and back pain are likely due to her known bladder outlet obstruction, significant distention, and mild bilateral hydronephrosis Rest of care per acute renal failure plan Admission and Anticipated Discharge Date Admission Date: December 23, 2023 Subjective Patient reports feeling well. Review of Systems Review of Systems: All systems reviewed & are unremarkable except as noted in HPI & below Physical Exam Physical Exam: HEENT: Normocephalic, atraumatic Chest/Pulm: No respiratory distress Cardiac: RRR, no murmurs noted Extremities: no edema noted in the BL LE's Skin: Warm, dry, no rashes , lesions, or scars noted Neuro: no focal defects, no tremors noted Results & Data Results & Data Vital Signs (Past 12 Hours) Vital Signs Temp Pulse Pulse Resp BP Pulse Ox O2 Del Method 12/24/23 15:25 36.8 C 73 18 117/79 90 Room Air 12/24/23 13:00 90 12/24/23 11:31 36.9 C 81 20 92/65 L 96 Room Air 12/24/23 08:24 37.0 C 80 20 111/75 95 Room Air 12/24/23 06:09 77 12/24/23 04:33 36.7 C 86 20 96/63 L 93 Room Air PG Care Time/CCT Total # of Minutes Spent Total Time Spent with Patient: Total time spent is greater than 50% in coordination of care (as documented) at patient's floor/unit and/or counseling patient: Coding Level of Care Code 35694 SUB INP/OBS CARE 2/35MIN Diagnoses Acute renal failure N17.9 Urinary retention R33.9 Abdominal pain R10.9
[2023-12-25 06:39] LABS: Basophils # (auto) 0.04 K/uL (0.00-0.20); Basophils % (auto) 0.7 %; Eosinophils # (auto) 0.09 K/uL (0.00-0.50); Eosinophils % (auto) 1.6 %; Hematocrit (blood only) 34.3 % (37.0-47.0); Hemoglobin 11.8 g/dl (12.0-16.0); Immature Granulocytes # (auto) 0.02 K/uL (0.01-0.20); Immature Granulocytes % (auto) 0.4 %; Lymphocytes # (auto) 1.52 K/uL (1.20-3.40); Lymphocytes % (auto) 27.5 %; Mean Corpuscular Hemoglobin 32.8 pg (25.0-34.0); Mean Corpuscular Hgb Conc 34.4 g/dL (32.0-36.0); Mean Corpuscular Volume 95.3 fL (80.0-100.0); Mean Platelet Volume 9.7 fL (9.4-12.4); Monocytes # (auto) 0.52 K/uL (0.11-0.59); Monocytes % (auto) 9.4 %; Neutrophils # (auto) 3.33 K/uL (1.40-6.50); Neutrophils % (auto) 60.4 %; Platelet Count 372 K/uL (130-400); RDW Coefficient of Variation 11.7 % (11.5-14.5); RDW Standard Deviation 40.5 fL (36.4-46.3); White Blood Count 5.52 K/ul (4.8-10.8)
[2023-12-25] MEDS: MAGNESIUM CITRATE 296 ML/BTL PO STA (08:27)
[2023-12-25 10:14] LABS: Calcium 9.2 mg/dl (8.6-10.3); Magnesium 2.1 mg/dl (1.7-2.4); Potassium 4.1 mmol/L (3.5-5.1)
[2023-12-25 10:21] LABS: BUN Creatinine Ratio 18.6 (10-20); Creatinine Clr Calc Pharmacy 79.7 ml/min; Est GFR (African American) 113.8 ml/min; Est GFR (Non-African American) 98.2 ml/min
--- NOTE | 2023-12-25 12:31 | Urology Progress Note ---
Date of Service December 25, 2023 Assessment & Plan (1) Acute urinary retention: (2) Acute renal failure: Plan: Follow-up of urinary retention, acute renal failure Patient afebrile, hemodynamically stable Labs reviewedrenal function has normalized (creatinine 0.70), no leukocytosis Patient failed voiding trial yesterday, Yin was replaced Recommend maintain Yin catheter until urology follow-up Hematuria can be expected with ureteral stent in place will sign off, please contact our service with any additional questions or concerns Admission and Anticipated Discharge Date Admission Date: December 23, 2023 Subjective Patient seen and examined at bedside this morning Voiding trial was unsuccessful yesterday, Yin replaced Yin draining thin dark maroon urine Tolerating Yin No fever or chills Review of Systems Constitutional: as per Subjective / HPI Genitourinary: as per Subjective / HPI Physical Exam Constitutional: well developed and well nourished; no acute distress Respiratory: normal respiratory effort; no respiratory distress and no labored breathing Gastrointestinal (Abdomen): Inspection/Auscultation: abdomen normal to inspection Musculoskeletal: Head/Neck/Chest: normocephalic Neurologic: moves all extremities and awake Psychiatric: Orientation: alert and oriented x 3 Genitourinary: Yin draining thin dark maroon urine Results & Data Vital Signs (Past 12 Hours) Vital Signs Temp Pulse Pulse Resp BP BP Pulse Ox 12/25/23 11:33 36.7 C 93 H 20 91/61 L 94 12/25/23 07:41 36.9 C 72 18 118/81 97 12/25/23 05:30 70 12/25/23 02:56 36.6 C 66 16 103/66 95 O2 Del Method 12/25/23 11:33 Room Air 12/25/23 07:41 Room Air 12/25/23 05:30 12/25/23 02:56 Room Air PG Care Time/CCT Total # of Minutes Spent Total Time Spent with Patient: Total time spent is greater than 50% in coordination of care (as documented) at patient's floor/unit and/or counseling patient: Coding Level of Care Code 39530 SUB INP/OBS CARE 07/20MIN Diagnoses Acute urinary retention R33.8 Acute renal failure N17.9
--- NOTE | 2023-12-25 12:34 | Discharge Summary ---
Date of Service December 25, 2023 Admission HPI Per Admitting Provider Iqra is a 53-year-old female with a past medical history significant for Nephrolithiasis status post cystoscopy with right ureteroscopy, retrograde pyelogram, ureteral dilation, laser destruction of stone, incision of calyceal diverticulum, and insertion of stent catheter with Dr. Lea on 12/21/2023, schwannoma/left-sided neck mass status post removal on 03/14/2029, cervical cancer status post hysterectomy, and adjustment disorder with anxiety who presented to the [facility] ED on 12/23/2023 with complaints of abdominal pain, back pain, dizziness since her urologic procedure on 12/21/2023. She was noted to be tachycardic at 95 on arrival but otherwise stable. Labs were significant for hemoglobin of 11.6 (down from 13.9 on 11/29/2023), creatinine of 3.17 (baseline is near 0.6), BUN of 32, sodium of 133, and UA with cloudy urine, 1+ protein, 3+ blood, and nitrate positive, trace leukocyte esterase, 3-5 RBC, and negative for WBC and bacteria. CT of the abdomen pelvis without contrast was read as right ureteral stent in place. No ureteral calculi. Punctate left renal calculus. Mild bilateral hydronephrosis, likely related to bladder distention. Significantly distended bladder which demonstrates a 6.4 x 4.2 cm hyperdense focus suggestive of a clot. Hyperdense material within the right collecting system suggest clot contrast from recent procedure could appear similar but is considered less likely. Trace gas within the bladder related to recent instrumentation. Small amount of presacral/perirectal fluid and stranding without fluid collection. Prior to admission the patient was given 500 mL normal saline, 4 mg IV Zofran, and 0.5 mg IV Dilaudid.The ED did speak with neurology who was in agreement with Yin catheter placement, they also recommended bladder irrigation as the blood clots noted on CT are likely causing her obstruction. Patient was lying in bed in mild distress due to abdominal discomfort at the time of the exam with her bedside, history was obtained from both. They confirm that the patient has had ongoing difficulty urinating with progressive bladder distention and abdominal pain since her procedure on 12/21/2023. Her back pain progressed after her abdominal pain. No recent fever/chills, chest pain, shortness of breath/cough, nausea/vomiting, diarrhea, and recent trauma. When asked, they state that she has been using the prescribed Percocet and Pyridium for pain. They deny the patient using recent NSAIDs. Please refer to Dr. Pritchett's attestation for any changes to the treatment plan. Principal Diagnosis Urinary retention, acute renal failure Discharge Exam General-alert and oriented x3, no fever, no chills HEENT-head atraumatic and normocephalic, pupils equal and reactive to light, extraocular muscles intact Neck-no lymphadenopathy or thyromegaly, trachea midline Chest-clear to auscultation. No rales, wheezing or rhonchi Cardiac-regular rate and rhythm, normal S1 and S2 Abdomen-normal bowel sounds, no hepatosplenomegaly GUFoley catheter in place Extremities-no cyanosis, clubbing, or edema Neuro-cranial nerves II through XII intact, motor and sensory function within normal limits, strength symmetrical, no focal deficits Psych-normal affect, normal mood Discharge Data Allergies Allergy/AdvReac Type Severity Reaction Status Date / Time promethazine Allergy Mild HALLUCINATI Verified 12/23/23 11:48 ONS chlorpheniramine Allergy Unknown HEART RACES Verified 12/23/23 11:48 dextromethorphan Allergy Unknown HEART RACED Verified 12/23/23 11:48 phenylpropanolamine Allergy Unknown Unknown Verified 12/23/23 11:48 pseudoephedrine Allergy Unknown HEART RACED Verified 12/23/23 11:48 amitriptyline AdvReac Unknown Unknown Verified 12/23/23 11:48 citalopram [From Celexa] AdvReac Unknown Unknown Verified 12/23/23 11:48 escitalopram [From Lexapro] AdvReac Unknown Unknown Verified 12/23/23 11:48 sertraline AdvReac Unknown Unknown Verified 12/23/23 11:48 solifenacin [From Vesicare] AdvReac Unknown Unknown Verified 12/23/23 11:48 Consultations 12/23/23 11:52 Consult Urology Routine Ordered Studies 12/23/23 10:12 CT abd pelvis wo con Stat Hospital Course (1) Acute renal failure: Resolved with IV fluids and Yin catheter (2) Urinary retention: On admission patient noted to have significant bladder distention on CT of the abdomen pelvis without contrast, likely due to postprocedural blood clots causing bladder outlet obstruction. Recent cystoscopy with right ureter stent placement and laser lithotripsy of stone. Yin catheter is in place. She failed a trial of voiding yesterday, December 23, and the Yin catheter had to be replaced. The Yin catheter will stay in place at the time of discharge (3) Abdominal pain: likely due to her known bladder outlet obstruction, significant distention, and mild bilateral hydronephrosis on admission. Now resolved Plan Home today, December 24, with Yin catheter in place. Total Time Total Time Spent Total Time Spent (In Minutes): 50 minutes Discharge Plan Discharge Items Reason For Visit: ACUTE RENAL FAILURE,BLADDER OUTLET OBSTRUCTION, AB Discharge Diagnosis: Urinary retention, acute renal failure Activity: Resume your previous activity Non-emergency contact: Primary Care Provider and Urologist Call non-emergency contact if: your symptoms worsen Follow-up/Referrals: Daryn Wilburn MD [Primary Care Provider] - Diet: Regular Addtl Attending Provider Instructions: Yin catheter will remain in place at the time of discharge. Continue Flomax( tamsulosin) daily. See urology as scheduled Pending Studies at Discharge: No Stand-Alone Forms: My [employer], Smoking Cessation Medications and DC Order Prescriptions: Continued omeprazole 40 mg capsule,delayed release(DR/EC) 40 mg PO QAM Qty: 90 3RF multivitamin Tablet 1 tab PO QAM aspirin [Aspir-81] 81 mg Tablet,Delayed Release (Dr/Ec) 81 mg PO QAM cholecalciferol (vitamin D3) [Vitamin D3] 1,000 unit Capsule 1,000 unit PO QAM mirabegron [Myrbetriq] 50 mg tablet extended release 24 hr 50 mg PO QAM ascorbic acid (vitamin C) 500 mg capsule 500 mg PO QAM Rx Instructions: 1 tab PO in AM; phenazopyridine [Pyridium] 200 mg tablet 200 mg PO Q8H PRN (Reason: pain) Qty: 10 0RF tamsulosin 0.4 mg capsule 0.4 mg PO HS Qty: 30 0RF levofloxacin 500 mg tablet 500 mg PO DAILY 5 Days Qty: 5 0RF Rx Instructions: Start Date 12/21/23 x5 days oxycodone-acetaminophen [Percocet] 7.5-325 mg tablet 1 tab PO Q8H PRN (Reason: pain) Qty: 7 0RF venlafaxine 75 mg capsule,extended release 24hr 75 mg PO QAM Admission Data Admit Date/Time: 12/23/23 11:20 Attending Provider: Nils Pitts Admit Provider: Tracy Pritchett Primary Care Provider: Daryn Wilburn V. Other Providers: Meño Butler Coding Level of Care Code 08962 INP/OBS DISCH >30 MIN Diagnoses Acute renal failure N17.9 Urinary retention R33.9 Abdominal pain R10.9
== END 2023-12-25 13:45 | disposition home or self-care (01) | DRG 683 ==
LOC: ED 08:55 → SUATTDRO 11:20 → 2N 11:20

== ENCOUNTER 2023-12-28 12:40 | Inpatient (IN) ==
--- NOTE | 2023-12-28 13:18 | Emergency Department Note ---
Impression & Plan Cystitis, Hematuria, Complication of Yin catheter, Acute urinary obstruction ED Provider Note NAME: FRED FERNANDEZ AGE: 53 SEX: F : 1970 ARRIVES VIA: Walk-In INFORMANT: Patient, ED PROVIDER(S): Derrick Jenkins MD CHIEF COMPLAINT: Catheter issues HPI: This is a 53-year-old female with history of catheter issues. Patient reports that she had a urologic procedure due to kidney stone. She then was discharged with a Yin. She has had bleeding since this procedure. She notes that she saw Dr. Solorio yesterday and they irrigated the Yin. Today she continues to have symptoms and is now unable to urinate. She notes pressure in her suprapubic region. She notes weakness, pain in her back. She notes chills. ROS: See above HPI for pertinent positives & negatives. A total of 10 systems reviewed and were otherwise negative. PHYSICAL EXAMINATION: General: resting comfortably in no acute distress Head: Normocephalic and atraumatic Eyes: Normal inspection, extraocular muscles intact Ear, nose, throat: Normal external exam Neck: Normal range of motion Respiratory: lungs clear to auscultation bilaterally Cardiovascular: Regular rate/rhythm, no murmur GI: soft, nontender, no guarding or rebound Extremities: nontender, moves all extremities Neuro: The patient awake and alert, appropriately conversive, no focal deficits, symmetric faces Skin: Warm, dry, and intact MEDICAL DECISION MAKING: This is a 53-year-old female senting for Yin catheter obstruction. Patient notes that she was recently here with URI procedure, infection, obstruction. Was discharged after Yin placement. Now she has fully obstruction. Will change out Yin for three-way in case is necessary. Will do basic blood work, blood cultures, urinalysis. -Patient is now febrile to 37.9. Otherwise blood work is reviewed showing WBC of 5.87, hemoglobin 12.1. Electrolytes within normal limits, no transaminitis or lipase elevation. -Urinalysis significant infected showing UTI. -With patient's now resolved obstruction after Yin replacement however worsening UTI and fever, will admit patient for possible sepsis/worsening UTI -Patient care discussed with Dr. Aaron, hospitalist for admission -Given cefepime at this time Differential diagnosis: Blood clot, pyelonephritis, renal colic ER treatment provided: See below Diagnostics interpreted by me: ECG: None Cardiac Monitoring: An order was placed for continuous cardiac monitoring. The monitor shows a rate of 87 with sinus rhythm. Laboratory studies: As stated above and show below. Imaging studies: See below. Past Med/Surg History Problem List (Updated 12/28/23 @ 17:08 by Derrick Jenkins MD) Acute urinary obstruction (Acute) Complication of Yin catheter (Acute) Hematuria (Acute) Cystitis (Acute) UTI (urinary tract infection) Acute urinary retention (Acute) Acute renal failure (Acute) Abdominal pain Urinary retention Acute renal failure Kidney stones Arthritis of carpometacarpal (CMC) joint of right thumb Globus sensation Numbness and tingling of right leg Right leg pain Dyspnea on exertion Temporomandibular joint (TMJ) pain Blurry vision Daily headache Dizziness Osteoarthritis of carpometacarpal joint of left thumb Hyperlipidemia Unsatisfactory cervical cytology smear Routine gynecological examination Hot flashes Elevated platelet count Neck pain Pes anserinus bursitis of both knees Adjustment disorder with anxiety (Acute) Low back pain (Acute) Health care maintenance 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 (Acute) 1B- 2003-post abdominal hysterectomy with lymph node dissection/radiotherapy with chemo sensitization November 19, 2003 Stress incontinence in female (Acute) Urinary bladder incontinence Medical History (Updated 12/28/23 @ 17:08 by Derrick Jenkins MD) Stress incontinence in female Adjustment disorder with anxiety Osteoarthritis of carpometacarpal (CMC) joint of left thumb Radiation cystitis Hyperlipidemia TMJ (temporomandibular joint syndrome) "only have problems when I eat something hard" Lumbar radiculopathy denies Cervical cancer S/p hysterectomy with lymph node dissection and XRT and chemo () Sensation of lump in throat occasionally per patient Schwannoma post resection - 03/14/2019 - in [facility] [place] Colitis UNDER CONTROL GERD (gastroesophageal reflux disease) Surgical History History of cystoscopy cysto, mid-urethral sling 09/13/21: [place]: LMA#4 without issue History of surgery on left wrist left thumb CMC joint; 11/16/23 [facility] [place] Hx of foot surgery LEFT-BONE GRAFT History of esophagogastroduodenoscopy (EGD) History of colonoscopy History of hysterectomy total hyster 2005 Family History Father Myocardial infarction Hypertension Mother Myocardial infarction Hypertension Stroke Diabetes Grandfather (Maternal) Diabetes Social History Smoking Status: Never smoker Second Hand Exposure: No; Do You Dip or Chew Tobacco: No; Hx Alcohol Use: No Hx Substance Use: No Preferred Language: Kyrgyz Communication Ability: Effective Visual Impairment: No Limitations 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: Normal Criminal Justice Program Director Required: No Beliefs That Will Affect Care: None marital status: Current Living Situation: Spouse current occupational status: employed current occupation: [employer] Feels Safe at Home: Yes Childhood Exposure to Second-Hand Smoke: Yes Diet: regular Dental Care, Regularly: Yes Physical Activity Frequency: 1-2 Times per Week Seatbelt Use: always Sunscreen Use: Yes Assistive Devices: None Allergies Allergies Allergy/AdvReac Type Severity Reaction Status Date / Time chlorpheniramine AdvReac Intermediate HEART RACES Verified 12/28/23 15:39 dextromethorphan AdvReac Intermediate HEART RACED Verified 12/28/23 15:39 phenylpropanolamine AdvReac Intermediate HEART RACES Verified 12/28/23 15:39 promethazine AdvReac Intermediate HALLUCINATI Verified 12/28/23 15:39 ONS pseudoephedrine AdvReac Intermediate HEART RACED Verified 12/28/23 15:39 amitriptyline AdvReac Unknown PT DENIES Verified 12/28/23 15:45 THIS ALLERGY citalopram [From Celexa] AdvReac Unknown PT DENIES Verified 12/28/23 15:45 THIS ALLERGY escitalopram [From Lexapro] AdvReac Unknown PT DENIES Verified 12/28/23 15:45 THIS ALLERGY sertraline AdvReac Unknown PT DENIES Verified 12/28/23 15:45 THIS ALLERGY solifenacin [From Vesicare] AdvReac Unknown Unknown Verified 12/28/23 15:45 Home Meds Home Medications Medication Instructions Recorded Confirmed cholecalciferol (vitamin D3) 25 1,000 unit PO QAM 07/12/18 12/28/23 mcg (1,000 unit) capsule (Vitamin D3) multivitamin 1 tab PO QAM 07/12/18 12/28/23 ascorbic acid (vitamin C) 500 mg 500 mg PO QAM 12/13/23 12/28/23 capsule venlafaxine 75 mg capsule,extended 75 mg PO QAM 12/23/23 12/28/23 release 24 hr aspirin 81 mg tablet,delayed 81 mg PO DAILY 12/28/23 12/28/23 release Previous Rx's Medication Instructions Recorded omeprazole 40 mg capsule,delayed 40 mg PO QAM #90 caps 08/24/23 release oxycodone-acetaminophen 7.5 mg-325 1 tab PO Q8H PRN pain #7 tabs 12/21/23 mg tablet (Percocet) phenazopyridine 200 mg tablet 200 mg PO Q8H PRN pain #10 tabs 12/21/23 (Pyridium) tamsulosin 0.4 mg capsule 0.4 mg PO HS #30 caps 12/21/23 Results & Data (ED) Vital Signs Vital Signs - 24 hr 12/28/23 12:44 12/28/23 14:10 12/28/23 14:40 Temperature 36.7 C 37.9 C H 37.9 C H Temperature Source Temporal Artery Scan Oral Oral Pulse Rate 99 H Pulse Rate [Finger] 90 Pulse Rhythm [Finger] Pulse Strength [Finger] Respiratory Rate 18 18 Respiratory Effort / Characteristics Non-Labored Spontaneous Respiratory Depth Normal Respiratory Pattern Regular Blood Pressure 123/83 Blood Pressure [Right Arm] 122/82 Blood Pressure Mean 96 Blood Pressure Mean [Right Arm] 95 Blood Pressure Position Sitting Pulse Oximetry 99 94 Oxygen Delivery Method Room Air Room Air Sepsis Recent Fever Within 48 Hours No Sepsis New/Unexplained Change in Mental Status N/A Sepsis Action Taken by Nursing No Action Required 12/28/23 16:00 Temperature Temperature Source Pulse Rate Pulse Rate [Finger] 85 Pulse Rhythm [Finger] Regular Pulse Strength [Finger] Normal Respiratory Rate 17 Respiratory Effort / Characteristics Non-Labored Respiratory Depth Normal Respiratory Pattern Regular Blood Pressure Blood Pressure [Right Arm] 122/82 Blood Pressure Mean Blood Pressure Mean [Right Arm] 95 Blood Pressure Position Pulse Oximetry 93 Oxygen Delivery Method Room Air Sepsis Recent Fever Within 48 Hours Sepsis New/Unexplained Change in Mental Status Sepsis Action Taken by Nursing Laboratory Data 12/28/23 13:20 12/28/23 13:20 Lab Results 12/28/23 12/28/23 Range/Units 13:20 14:35 WBC 11.87 H (4.8-10.8) K/ul RBC 3.75 L (4.20-5.40) M/uL Hgb 12.1 (12.0-16.0) g/dl Hct 35.2 L (37.0-47.0) % MCV 93.9 (80.0-100.0) fL MCH 32.3 (25.0-34.0) pg MCHC 34.4 (32.0-36.0) g/dL RDW Std Deviation 39.5 (36.4-46.3) fL RDW Coeff of Verito 11.6 (11.5-14.5) % Plt Count 504 H (130-400) K/uL MPV 9.4 (9.4-12.4) fL Immature Gran % (Auto) 0.4 % Neut % (Auto) 81.6 % Lymph % (Auto) 8.5 % Mckean % (Auto) 8.7 % Eos % (Auto) 0.5 % Baso % (Auto) 0.3 % Neut # (Auto) 9.68 H (1.40-6.50) K/uL Lymph # (Auto) 1.01 L (1.20-3.40) K/uL Mckean # (Auto) 1.03 H (0.11-0.59) K/uL Eos # (Auto) 0.06 (0.00-0.50) K/uL Baso # (Auto) 0.04 (0.00-0.20) K/uL Immature Gran # (Auto) 0.05 (0.01-0.20) K/uL Sodium 133 L (136-145) mmol/L Potassium 3.5 (3.5-5.1) mmol/L Chloride 97 L (98-107) mmol/L Carbon Dioxide 27 (21-32) mmol/L Anion Gap 9 (3-11) BUN 9 (6-23) mg/dl Creatinine 0.63 (0.6-1.2) mg/dl Est Cr Clr Drug Dosing Not Reportable Est GFR ( Amer) 117.9 ml/min Est GFR (Non-Af Amer) 101.7 ml/min BUN/Creatinine Ratio 14.3 (10-20) Glucose 122 H (70-99(Fasting)) mg/dl Calcium 9.0 (8.6-10.3) mg/dl Total Bilirubin 0.7 (0.2-1.0) mg/dl AST 16 (13-39) U/L ALT 20 (7-52) U/L Alkaline Phosphatase 48 (34-104) U/L Total Protein 7.5 (6.0-8.3) gm/dl Albumin 4.4 (3.4-5.0) gm/dl Globulin 3.1 (2.5-4.0) gm/dl Albumin/Globulin Ratio 1.4 (0.9-2) Lipase 28 (11-82) U/L Urine Color Dark Yellow Urine Appearance Turbid A (Clear) Urine pH 7.5 (4.5-7.5) Ur Specific [place] 1.009 (1.000-1.030) Urine Protein 3+ H (Negative) Urine Glucose (UA) Negative (Negative) Urine Ketones Trace H (Negative) Urine Blood 3+ H (Negative) Urine Nitrite Positive A (Negative) Urine Bilirubin Negative (Negative) Urine Urobilinogen Negative (Negative) Ur Leukocyte Esterase 3+ H (Negative) Urine WBC (Auto) >50 H (0-5) /hpf Urine RBC (Auto) >20 H (0-2) /hpf U Hyaline Cast (Auto) 3-5 H (0-2) /lpf U Epithel Cells (Auto) 0-2 (0-2) /hpf Urine Bacteria (Auto) 2+ H (None Seen) Administered Medications Discontinued Medications Acetaminophen (Acetaminophen 325 Mg Tab) 650 mg PO NOW STA Stop: 12/28/23 14:22 Last Admin: 12/28/23 14:31 Dose: 650 mg Documented By: RAHUL Cefepime HCl (Maxipime) 2,000 mg in 20 mls @ 5 mls/min IV NOW STA; Protocol Stop: 12/28/23 15:24 Last Admin: 12/28/23 15:33 Dose: 5 mls/min Documented By: OAC Discharge Plan Visit Data Chief Complaint: Catheter Replacement Stated Complaint: URINARY CATHETER LEAKING ED Provider: Derrick Jenkins Discharge Problem: Cystitis, Hematuria, Complication of Yin catheter, Acute urinary obstruction Forms Stand Alone Forms: [facility] [employer] Prescriptions Prescriptions: No Action omeprazole 40 mg capsule,delayed release(DR/EC) 40 mg PO QAM Qty: 90 3RF multivitamin Tablet 1 tab PO QAM cholecalciferol (vitamin D3) [Vitamin D3] 1,000 unit Capsule 1,000 unit PO QAM ascorbic acid (vitamin C) 500 mg capsule 500 mg PO QAM Rx Instructions: 1 tab PO in AM; phenazopyridine [Pyridium] 200 mg tablet 200 mg PO Q8H PRN (Reason: pain) Qty: 10 0RF tamsulosin 0.4 mg capsule 0.4 mg PO HS Qty: 30 0RF oxycodone-acetaminophen [Percocet] 7.5-325 mg tablet 1 tab PO Q8H PRN (Reason: pain) Qty: 7 0RF venlafaxine 75 mg capsule,extended release 24hr 75 mg PO QAM aspirin 81 mg Tablet,Delayed Release (Dr/Ec) 81 mg PO DAILY Referrals Referrals: Daryn Wilburn MD [Primary Care Provider] -
[2023-12-28 13:44] LABS: Basophils # (auto) 0.04 K/uL (0.00-0.20); Basophils % (auto) 0.3 %; Eosinophils # (auto) 0.06 K/uL (0.00-0.50); Eosinophils % (auto) 0.5 %; Hematocrit (blood only) 35.2 % (37.0-47.0); Hemoglobin 12.1 g/dl (12.0-16.0); Immature Granulocytes # (auto) 0.05 K/uL (0.01-0.20); Immature Granulocytes % (auto) 0.4 %; Lymphocytes # (auto) 1.01 K/uL (1.20-3.40); Lymphocytes % (auto) 8.5 %; Mean Corpuscular Hemoglobin 32.3 pg (25.0-34.0); Mean Corpuscular Hgb Conc 34.4 g/dL (32.0-36.0); Mean Corpuscular Volume 93.9 fL (80.0-100.0); Mean Platelet Volume 9.4 fL (9.4-12.4); Monocytes # (auto) 1.03 K/uL (0.11-0.59); Monocytes % (auto) 8.7 %; Neutrophils # (auto) 9.68 K/uL (1.40-6.50); Neutrophils % (auto) 81.6 %; Platelet Count 504 K/uL (130-400); RDW Coefficient of Variation 11.6 % (11.5-14.5); RDW Standard Deviation 39.5 fL (36.4-46.3); Red Blood Count 3.75 M/uL (4.20-5.40); White Blood Count 11.87 K/ul (4.8-10.8)
[2023-12-28 13:52] LABS: Alanine Aminotransferase 20 U/L (7-52); Albumin Globulin Ratio 1.4 (0.9-2); Albumin Level 4.4 gm/dl (3.4-5.0); Alkaline Phosphatase 48 U/L (34-104); Anion Gap 9 (3-11); Aspartate Aminotransferase 16 U/L (13-39); BUN Creatinine Ratio 14.3 (10-20); Bilirubin,Total 0.7 mg/dl (0.2-1.0); Blood Urea Nitrogen 9 mg/dl (6-23); Carbon Dioxide 27 mmol/L (21-32); Chloride 97 mmol/L (98-107); Est GFR (African American) 117.9 ml/min; Est GFR (Non-African American) 101.7 ml/min; Globulin 3.1 gm/dl (2.5-4.0); Glucose 122 mg/dl (70-99(Fasting)); Lipase 28 U/L (11-82); Potassium 3.5 mmol/L (3.5-5.1); Sodium 133 mmol/L (136-145); Total Protein 7.5 gm/dl (6.0-8.3)
[2023-12-28] MEDS: ACETAMINOPHEN 325 MG TAB PO STA (14:31)
[2023-12-28 15:09] LABS: Appearance Urine Turbid (Clear); Bacteria Urine Automated 2+ (None Seen); Bilirubin Urine Negative (Negative); Blood Urine 3+ (Negative); Color Urine Dark Yellow; Epithelial Cell Urine Auto 0-2 /hpf (0-2); Glucose Urine UA Negative (Negative); Ketones Urine Trace (Negative); Leukocyte Esterase Urine 3+ (Negative); Nitrite Urine Positive (Negative); Protein Urine 3+ (Negative); RBC Urine Automated >20 /hpf (0-2); Specific Gravity Urine 1.009 (1.000-1.030); Urobilinogen Urine Negative (Negative); WBC Urine Automated >50 /hpf (0-5); pH Urine 7.5 (4.5-7.5)
[2023-12-28] MEDS: CEFEPIME 2,000 MG/20 ML VIAL IV STA (15:33)
--- NOTE | 2023-12-28 15:39 | History & Physical Report ---
Date of Service December 28, 2023 Assessment & Plan (1) UTI (urinary tract infection): Plan: Recurrent urinary obstruction with hematuria, suspected acute UTI - Recent hx of nephrolithiasis w/ obstructive uropathy, hx cysto and laser destruction, cleary placement Cleary irrigated in ER with output of 700 cc. irrigate as needed UA limited by indwelling Cleary however following exchange urine is with 2+ bacteria, leukocyte esterase, nitrates and patient has a leukocytosis with fatigue and borderline fever. Will treat empirically for underlying UTI with cefepime No prior UCx with resistant organisms No CVA tenderness to percussion although does endorse some flank discomfort in the last 24 hours. renal bladder ultrasound ordered to evaluate for obstructive uropathy/pyelo, there is no PRESTON BC pending, UC pending Patient does not appear septic, no hypotension, no tachycardia (2) Acute urinary retention: Plan Chronic stable issues: Anxiety/depression: Continue venlafaxine GERD: Continue PPI daily DVT prophylaxis: SCD, pharmacal prophylaxis held due to hematuria Disposition: Medical surgical CODE STATUS: Full code Diet: Heart healthy, n.p.o. at midnight pending urology reevaluation History of Present Illness Primary Care Provider: Daryn Wilburn MD Iqra is a 53-year-old female past medical history of kidney stones with cystoscopy and laser destruction, cervical cancer post hysterectomy, adjustment disorder with anxiety, and recent admission with discharge 12/25/2023 after being admitted for urinary retention with acute renal failure who was discharged with a Cleary in place and outpatient follow-up to urology. She was seen in the office by urology 12/26 for bladder pain and decreased [place] output, had some dark red urine in the catheter bag at that point. Cleary catheter was irrigated and had rapid return of about a 50 cc of red-tinged urine. Patient returned home however this morning had no output from her catheter with increased abdominal discomfort and presented to the ER. Cleary was exchanged with bladder decompression and drainage of approximately 700cc of red-tinged urine. Case was reviewed with urology while in the ER, recommended treatment of possible underlying UTI and observation with medical admission. Seen at the bedside. Endorses fatigue, suprapubic discomfort, difficulty voiding into her Cleary. She reports in the last day she has also had a feeling of chills and feeling feverish. She reports a burning sensation at the Cleary catheter which is new in the last 24 hours. Denies nausea/vomiting. Denies cough. Denies diarrhea constipation. Has had intermittent bloody output into her Cleary catheter since her stone management, she takes aspirin for primary prevention but has not taken this since December 13. At time bedside assessment she reports that the pressure in her pelvis feels improved after the Cleary exchange, but she still has discomfort and burning at the Cleary site. Medical History: Reviewed Medications: Reviewed Surgical History: Reviewed Family history: Reviewed Allergies: Reviewed Social History: Reviewed Code Status: Full Allergies Allergy/AdvReac Type Severity Reaction Status Date / Time chlorpheniramine AdvReac Intermediate HEART RACES Verified 12/28/23 15:39 dextromethorphan AdvReac Intermediate HEART RACED Verified 12/28/23 15:39 phenylpropanolamine AdvReac Intermediate HEART RACES Verified 12/28/23 15:39 promethazine AdvReac Intermediate HALLUCINATI Verified 12/28/23 15:39 ONS pseudoephedrine AdvReac Intermediate HEART RACED Verified 12/28/23 15:39 amitriptyline AdvReac Unknown PT DENIES Verified 12/28/23 15:45 THIS ALLERGY citalopram [From Celexa] AdvReac Unknown PT DENIES Verified 12/28/23 15:45 THIS ALLERGY escitalopram [From Lexapro] AdvReac Unknown PT DENIES Verified 12/28/23 15:45 THIS ALLERGY sertraline AdvReac Unknown PT DENIES Verified 12/28/23 15:45 THIS ALLERGY solifenacin [From Vesicare] AdvReac Unknown Unknown Verified 12/28/23 15:45 Home Medications Medication Instructions Recorded Confirmed Type cholecalciferol (vitamin D3) 25 1,000 unit PO QAM 07/12/18 12/28/23 History mcg (1,000 unit) capsule (Vitamin D3) multivitamin 1 tab PO QAM 07/12/18 12/28/23 History omeprazole 40 mg capsule,delayed 40 mg PO QAM #90 caps 08/24/23 12/28/23 Rx release ascorbic acid (vitamin C) 500 mg 500 mg PO QAM 12/13/23 12/28/23 History capsule oxycodone-acetaminophen 7.5 mg-325 1 tab PO Q8H PRN pain #7 tabs 12/21/23 12/28/23 Rx mg tablet (Percocet) phenazopyridine 200 mg tablet 200 mg PO Q8H PRN pain #10 tabs 12/21/23 12/28/23 Rx (Pyridium) tamsulosin 0.4 mg capsule 0.4 mg PO HS #30 caps 12/21/23 12/28/23 Rx venlafaxine 75 mg capsule,extended 75 mg PO QAM 12/23/23 12/28/23 History release 24 hr aspirin 81 mg tablet,delayed 81 mg PO DAILY 12/28/23 12/28/23 History release Past Med/Surg History Problem List (Updated 12/28/23 @ 15:58 by Sky Aaron MD) UTI (urinary tract infection) Acute urinary retention (Acute) Acute renal failure (Acute) Abdominal pain Urinary retention Acute renal failure Kidney stones Arthritis of carpometacarpal (CMC) joint of right thumb Globus sensation Numbness and tingling of right leg Right leg pain Dyspnea on exertion Temporomandibular joint (TMJ) pain Blurry vision Daily headache Dizziness Osteoarthritis of carpometacarpal joint of left thumb Hyperlipidemia Unsatisfactory cervical cytology smear Routine gynecological examination Hot flashes Elevated platelet count Neck pain Pes anserinus bursitis of both knees Adjustment disorder with anxiety (Acute) Low back pain (Acute) Health care maintenance 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 (Acute) 1B- 2003-post abdominal hysterectomy with lymph node dissection/radiotherapy with chemo sensitization November 19, 2003 Stress incontinence in female (Acute) Urinary bladder incontinence Medical History (Updated 12/28/23 @ 15:58 by Sky Aaron MD) Stress incontinence in female Adjustment disorder with anxiety Osteoarthritis of carpometacarpal (CMC) joint of left thumb Radiation cystitis Hyperlipidemia TMJ (temporomandibular joint syndrome) "only have problems when I eat something hard" Lumbar radiculopathy denies Cervical cancer S/p hysterectomy with lymph node dissection and XRT and chemo () Sensation of lump in throat occasionally per patient Schwannoma post resection - 03/14/2019 [place] [facility] [place] Colitis UNDER CONTROL GERD (gastroesophageal reflux disease) Surgical History History of cystoscopy cysto, mid-urethral sling 09/13/21: [place]: LMA#4 without issue History of surgery on left wrist left thumb CMC joint; 11/16/23 [facility] Hx of foot surgery LEFT-BONE GRAFT History of esophagogastroduodenoscopy (EGD) History of colonoscopy History of hysterectomy total hyster 2005 Family History Father Myocardial infarction Hypertension Mother Myocardial infarction Hypertension Stroke Diabetes Grandfather (Maternal) Diabetes Social History Smoking Status: Never smoker Second Hand Exposure: No; Do You Dip or Chew Tobacco: No; Hx Alcohol Use: No Hx Substance Use: No Preferred Language: Maltese Communication Ability: Effective Visual Impairment: No Limitations 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: Normal Mineral Surveyor Required: No Beliefs That Will Affect Care: None marital status: Current Living Situation: Spouse current occupational status: employed current occupation: [employer] Feels Safe at Home: Yes Childhood Exposure to Second-Hand Smoke: Yes Diet: regular Dental Care, Regularly: Yes Physical Activity Frequency: 1-2 Times per Week Seatbelt Use: always Sunscreen Use: Yes Assistive Devices: None Physical Exam Physical Exam: General: A&Ox3. NAD. Cooperative. HEENT: Atraumatic, normocephalic. Hearing grossly intact Pulm: CTAB A&P. -wheezes, -rales, -rhonchi. Symmetrical chest rise. No increased work of breathing. No respiratory distress. Cardiac: RRR, -mrg. Radial pulses intact and symmetrical. Abdominal: Suprapubic TTP. No CVA tenderness. No rebound/guarding. Results & Data Results & Data Vital Signs (Past 12 Hours) Vital Signs Temp Pulse Pulse Resp BP BP Pulse Ox 12/28/23 14:40 37.9 C H 90 18 122/82 94 12/28/23 14:10 37.9 C H 12/28/23 12:44 36.7 C 99 H 18 123/83 99 O2 Del Method 12/28/23 14:40 Room Air 12/28/23 14:10 12/28/23 12:44 Room Air PG Care Time/CCT Total # of Minutes Spent Total Time Spent with Patient: Total time spent is greater than 50% in coordination of care (as documented) at patient's floor/unit and/or counseling patient: Coding Level of Care Code 34712 INT INP/OBS CARE MIN Diagnoses UTI (urinary tract infection) N39.0 Acute urinary retention R33.8
--- NOTE | 2023-12-28 17:05 | Ultrasound Report ---
US renal/blad retro comp CLINICAL HISTORY: pyelo/obstruction eval TECHNIQUE: Multiple sonographic real-time images of the kidneys and bladder were obtained. COMPARISON: Comparison is made to CT abdomen pelvis 12/23/2023 FINDINGS: The right kidney measures 11.0 cm in length, and the left kidney measures 11.8 cm in length. The right kidney is normal in size, contour, cortical thickness, and echogenicity. No hydronephrosis is identified. Nonobstructive nephrolithiasis is seen. The left kidney is normal in size, contour, cortical thickness and echogenicity. No hydronephrosis i s identified. No renal lesion is identified. A Yin catheter is seen in the almost completely collapsed bladder. No large intraluminal mass is se en. IMPRESSION: No hydronephrosis or obstructive stone. Nonobstructive stone is seen on the left. ACT 112: Negative or not required by law. Electronically signed by: Jacob Ca M.D. 12/28/2023 5:04 PM
[2023-12-28] MEDS ORDERED: MoRPHine SULFATE 2 MG/ML CARP IV PRN (18:14)
[2023-12-28] MEDS ORDERED: POLYETHYLENE (MIRALAX) 17 GM PACK PO PRN (18:14)
[2023-12-28] MEDS: TAMSULOSIN HCL 0.4 MG CAP PO SCH (20:35)
--- NOTE | 2023-12-28 20:36 | Urology Consultation ---
Date of Consultation December 28, 2023 Assessment & Plan (1) Acute urinary obstruction: (2) Hematuria: (3) Cystitis: (4) UTI (urinary tract infection): (5) Kidney stones: (6) Radiation cystitis: (7) Personal history of malignant neoplasm of cervix uteri: Plan Patient admitted with gross hematuria lower urinary tract symptoms and bother. Developed significant episode of hematuria after stone treatment on the right. Has history of radiation cystitis. Had clot retention which likely led to over distention of the bladder and possibly cause flare of cystitis and hemorrhagic cystitis. Patient found to have low-grade fever. Urine is being sent for culture. Patient has been placed on broad-spectrum antibiotics and is undergoing supportive care hydration and antibiotic treatment. Vitals are currently stable with mild tachycardia. Tmax was 37.9. Hemoglobin 12.1. White count 11.87. Creatinine 0.63. All labs and vitals were reviewed please see HPI and plan section for pertinent values. Patient had repeat renal ultrasound. Also had CT scan last week. Current ultrasound showing improving hydronephrosis. Bladder appears to be compressed with no signs of major clot. Imaging was reviewed interpreted by myself. CT imaging had shown no signs of persistent stones on the right side after treatment. Reviewed extensively with patient. Likely fever with possible developing Pyelo likely secondary to cystitis with gross hematuria likely secondary to radiation cystitis and recent stone treatment. Reviewed supportive care. Reviewed monitoring. Will continue to follow. Will likely need stent removal in the coming week. Has appointment set up for the ninth. Will plan to keep this. Will likely be able to de-escalate antibiotics once cultures are finalized. Patient complicated medical and surgical history was reviewed and surmise above all imaging was reviewed interpreted by myself. All labs and vitals were reviewed with parent values in the HPI or plan section. History of Present Illness Attending Physician: Sky Aaron MD History of Present Illness New consultation for patient with UTI/Pyelo, discomfort, and ill feelings. Patient had undergone treatment of stone on the right. Subsequently developed hematuria and clot retention. Had to have catheter placed. Develop further episodes of bleeding and debris presented to the ER with ill feelings and worsening bother. Had low-grade fever of 37.9. Patient developed sudden onset of pain into flank going down and radiating into groin and back in waves comes and goes. Can be severe at times. Discussed and reviewed patient's family history for any history of issues, infections, and disease. Also, discussed patient's medical/surgery history especially related to any history of urinary issues or stone disease. Patient was admitted and is undergoing observation with broad spectrum IV antibiotics. Allergies Allergy/AdvReac Type Severity Reaction Status Date / Time chlorpheniramine AdvReac Intermediate HEART RACES Verified 12/28/23 15:39 dextromethorphan AdvReac Intermediate HEART RACED Verified 12/28/23 15:39 phenylpropanolamine AdvReac Intermediate HEART RACES Verified 12/28/23 15:39 promethazine AdvReac Intermediate HALLUCINATI Verified 12/28/23 15:39 ONS pseudoephedrine AdvReac Intermediate HEART RACED Verified 12/28/23 15:39 amitriptyline AdvReac Unknown PT DENIES Verified 12/28/23 15:45 THIS ALLERGY citalopram [From Celexa] AdvReac Unknown PT DENIES Verified 12/28/23 15:45 THIS ALLERGY escitalopram [From Lexapro] AdvReac Unknown PT DENIES Verified 12/28/23 15:45 THIS ALLERGY sertraline AdvReac Unknown PT DENIES Verified 12/28/23 15:45 THIS ALLERGY solifenacin [From Vesicare] AdvReac Unknown Unknown Verified 12/28/23 15:45 Home Medications Medication Instructions Recorded Confirmed Type cholecalciferol (vitamin D3) 25 1,000 unit PO QAM 07/12/18 12/28/23 History mcg (1,000 unit) capsule (Vitamin D3) multivitamin 1 tab PO QAM 07/12/18 12/28/23 History omeprazole 40 mg capsule,delayed 40 mg PO QAM #90 caps 08/24/23 12/28/23 Rx release ascorbic acid (vitamin C) 500 mg 500 mg PO QAM 12/13/23 12/28/23 History capsule oxycodone-acetaminophen 7.5 mg-325 1 tab PO Q8H PRN pain #7 tabs 12/21/23 12/28/23 Rx mg tablet (Percocet) phenazopyridine 200 mg tablet 200 mg PO Q8H PRN pain #10 tabs 12/21/23 12/28/23 Rx (Pyridium) tamsulosin 0.4 mg capsule 0.4 mg PO HS #30 caps 12/21/23 12/28/23 Rx venlafaxine 75 mg capsule,extended 75 mg PO QAM 12/23/23 12/28/23 History release 24 hr aspirin 81 mg tablet,delayed 81 mg PO DAILY 12/28/23 12/28/23 History release Patient History Medical History Stress incontinence in female Adjustment disorder with anxiety Osteoarthritis of carpometacarpal (CMC) joint of left thumb Radiation cystitis Hyperlipidemia TMJ (temporomandibular joint syndrome) "only have problems when I eat something hard" Lumbar radiculopathy denies Cervical cancer S/p hysterectomy with lymph node dissection and XRT and chemo () Sensation of lump in throat occasionally per patient [place] [facility] [place]itis UNDER CONTROL GERD (gastroesophageal reflux disease) Surgical History History of cystoscopy cysto, mid-urethral sling 09/13/21: [place]: LMA#4 without issue History of surgery on left wrist left thumb CMC joint[place] [facility] [place]x of foot surgery LEFT-BONE GRAFT History of esophagogastroduodenoscopy (EGD) History of colonoscopy History of hysterectomy total hyster 2004 Family History Father Myocardial infarction Hypertension Mother Myocardial infarction Hypertension Stroke Diabetes Grandfather (Maternal) Diabetes Social History Smoking Status: Never smoker Second Hand Exposure: No; Do You Dip or Chew Tobacco: No; Hx Alcohol Use: No Hx Substance Use: No Preferred Language: Czech Communication Ability: Effective Visual Impairment: No Limitations 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: Normal Timekeeper Supervisor Required: No Beliefs That Will Affect Care: None marital status: Current Living Situation: Spouse current occupational status: employed current occupation: [employer] Other Information That Helps Us Care for You: No Feels Safe at Home: Yes Safety Concerns: Feels Safe At This Time Childhood Exposure to Second-Hand Smoke: Yes Diet: regular Dental Care, Regularly: Yes Physical Activity Frequency: 1-2 Times per Week Seatbelt Use: always Sunscreen Use: Yes Assistive Devices: Glasses Review of Systems Review of Systems: All systems reviewed & are unremarkable except as noted in HPI & below Physical Exam Physical Exam: General: Alert and oriented x 3 in no acute distress. HEENT: Normocephalic Atraumatic. Inspection normal. Cranial Nerves 2-12 Grossly intact. Nares are clear. Neck is supple. Normal inspection of face. Normal inspection of neck. Neurologic: No deficits on inspection. Baseline for motor function and sensory. Psychologic: Normal affect. Respiratory: Nonlabored. No use of accessory muscles. No tachypnea or dyspnea. Cardiovascular: No tachycardia Skin: [place] and Dry. No rashes or visible lesions. Extremities: Moving without issues. No motor deficits on inspection Lymphatics: No edema Abdomen: Soft Non-distended. No rebound or guarding. : Yin in place. Light pink urine Results & Data Vital Signs (Past 12 Hours) Vital Signs Temp Pulse Pulse Resp BP BP BP 12/28/23 20:09 37.0 C 97 H 16 105/74 12/28/23 18:16 37.0 C 86 16 106/73 12/28/23 16:00 85 17 122/82 12/28/23 14:40 37.9 C H 90 18 122/82 12/28/23 14:10 37.9 C H 12/28/23 12:44 36.7 C 99 H 18 123/83 Pulse Ox O2 Del Method 12/28/23 20:09 96 Room Air 12/28/23 18:16 94 Room Air 12/28/23 16:00 93 Room Air 12/28/23 14:40 94 Room Air 12/28/23 14:10 12/28/23 12:44 99 Room Air PG Care Time/CCT Total # of Minutes Spent Total Time Spent with Patient: Total time spent is greater than 50% in coordination of care (as documented) at patient's floor/unit and/or counseling patient: Coding Level of Care Code 18574 IN/OBS CONSULT LVL 5,80M Diagnoses Acute urinary obstruction N13.9 Hematuria R31.9 Cystitis N30.90 UTI (urinary tract infection) N39.0 Kidney stones N20.0 Radiation cystitis N30.40 Personal history of malignant neoplasm of cervix uteri Z85.41
[2023-12-29] MEDS: CEFEPIME 2,000 MG in SYRINGE 0 ML IV SCH (00:13)
[2023-12-29 03:33] LABS: A calco-baum cmplx NotReported Not Detected (NotDetected); Bact fragilis Not Reported Not Detected (NotDetected); Blood Culture Id Panel See PCR Comment (NotDetected); C auris Not Reported Not Detected (NotDetected); Calbicans Not Reported Not Detected (NotDetected); Candida glabrata Not Reported Not Detected (NotDetected); Candida krusei Not Reported Not Detected (NotDetected); Cneoformans/gatti Not Reported Not Detected (NotDetected); Cparapsilosis Not Reported Not Detected (NotDetected); E cloacae compx Not Reported Not Detected (NotDetected); Efaecalis Not Reported Not Detected (NotDetected); Efaecium Not Reported Not Detected (NotDetected); Enterobacterales DETECTED (NotDetected); Enterobacterales Not Reported DETECTED (NotDetected); Escherichia coli Not Reported DETECTED (NotDetected); H influenzae Not Reported Not Detected (NotDetected); IMP Resistant Gene Not Detected (NotDetected); K aerogenes Not Reported Not Detected (NotDetected); KPC Resistant Gene Not Detected (NotDetected); Koxytoca Not Reported Not Detected (NotDetected); Kpneumoniae grp Not Reported Not Detected (NotDetected); Lmonocyt Not Reported Not Detected (NotDetected); N meningitidis Not Reported Not Detected (NotDetected); NDM Resistant Gene Not Detected (NotDetected); OXA 48 Like Resistant Gene Not Detected (NotDetected); P aeruginosa Not Reported Not Detected (NotDetected); Proteus spp Not Reported Not Detected (NotDetected); Salmonella spp Not Reported Not Detected (NotDetected); Staph lugdunensis Not Reported Not Detected (NotDetected); Staph spp. Not Reported Not Detected (NotDetected); Staphaureus Not Reported Not Detected (NotDetected); Staphepi Not Reported Not Detected (NotDetected); Stenmaltophilia Not Reported Not Detected (NotDetected); Strep agal(GrpB) Not Reported Not Detected (NotDetected); Strep pneum Not Reported Not Detected (NotDetected); Strep pyog (GrpA) Not Reported Not Detected (NotDetected); Strep spp Not Reported Not Detected (NotDetected); VIM Resistant Gene Not Detected (NotDetected); mcr-1 Colistin Resistant Gene Not Detected (NotDetected)
[2023-12-29 05:19] LABS: CTX-M Resistant Gene DETECTED (NotDetected)
[2023-12-29] MEDS: ERTAPENEM SODIUM 1,000 MG in SYRINGE 0 ML IV SCH (05:53)
[2023-12-29 07:21] LABS: Basophils # (auto) 0.03 K/uL (0.00-0.20); Basophils % (auto) 0.2 %; Eosinophils # (auto) 0.03 K/uL (0.00-0.50); Eosinophils % (auto) 0.2 %; Hematocrit (blood only) 34.5 % (37.0-47.0); Hemoglobin 11.8 g/dl (12.0-16.0); Immature Granulocytes # (auto) 0.07 K/uL (0.01-0.20); Immature Granulocytes % (auto) 0.5 %; Lymphocytes # (auto) 1.41 K/uL (1.20-3.40); Lymphocytes % (auto) 10.4 %; Mean Corpuscular Hemoglobin 32.2 pg (25.0-34.0); Mean Corpuscular Hgb Conc 34.2 g/dL (32.0-36.0); Mean Platelet Volume 9.1 fL (9.4-12.4); Monocytes # (auto) 1.33 K/uL (0.11-0.59); Monocytes % (auto) 9.8 %; Neutrophils # (auto) 10.66 K/uL (1.40-6.50); Neutrophils % (auto) 78.9 %; Platelet Count 461 K/uL (130-400); RDW Coefficient of Variation 11.6 % (11.5-14.5); RDW Standard Deviation 39.9 fL (36.4-46.3); Red Blood Count 3.67 M/uL (4.20-5.40); White Blood Count 13.53 K/ul (4.8-10.8)
[2023-12-29 07:40] LABS: BUN Creatinine Ratio 14.7 (10-20); Calcium 8.7 mg/dl (8.6-10.3); Creatinine Clr Calc Pharmacy 78.9 ml/min; Est GFR (African American) 104.7 ml/min; Est GFR (Non-African American) 90.4 ml/min; Potassium 3.3 mmol/L (3.5-5.1)
--- NOTE | 2023-12-29 07:55 | Hospitalist Progress Note ---
Date of Service December 29, 2023 Assessment & Plan (1) UTI (urinary tract infection): (2) Acute urinary retention: (3) Hypokalemia: (4) Bacteremia: Plan #Acute Urinary Retention #Hematuria #Radiation cystitis - recent h/o nephrolithiasis w/ obstructive uropathy, h/o cysto and laser destruction, cleary placement - indwelling cleary, irrigated in the ER with 700cc output - urology on board, no plans for any procedure at this time, though plans for stent removal and voiding trial on 01/01 - cont tamsulosin #GNR bacteremia - suspect E coli - cont ertapenem #UTI - UA limited by indwelling catheter, however, following exchange, urine is with 2+ bacteria, leuk esterase, nitrates. pt symptomatic with fatigue, borderline fever, also leukocytosis - started on cefepime in the ER, currently on Ertapenem - UCx growing E coli- sens pending , abx deescalation pending culture results #Hypokalemia - replete and monitor #Anxiety / Depression - cont venlafaxine #GERD - cont PPI DVT prophylaxis: SCD, pharmacal prophylaxis held due to hematuria Disposition: Medical surgical CODE STATUS: Full code Diet: Heart healthy Admission and Anticipated Discharge Date Admission Date: December 28, 2023 Subjective Admitted yesterday No acute events overnight Currently, her primary complaint is fatigue Review of Systems Review of Systems: comprehensive ROS reviewed Physical Exam Physical Exam: Gen: no acute distress, sitting in bed comfortable HEENT: normocephalic / atraumatic, anicteric, moist mucous membranes CVS: s1s2 nl, RRR, no M/R/G Lungs: CTAB Abd: + bowel sounds, soft, nontender, nondistended, no rigidity / guarding / rebound : + cleary in place with hematuria Ext: no edema Neuro: awake, alert Psych: non anxious Results & Data Results & Data Vital Signs (Past 12 Hours) Vital Signs Temp Pulse Resp BP Pulse Ox O2 Del Method 12/29/23 06:58 37.5 C 90 16 104/71 95 Room Air 12/28/23 20:09 37.0 C 97 H 16 105/74 96 Room Air Laboratory Results Abnormal lab results 12/28/23 12/28/23 12/28/23 Range/Units 13:20 14:35 15:32 WBC 11.87 H (4.8-10.8) K/ul RBC 3.75 L (4.20-5.40) M/uL Hgb (12.0-16.0) g/dl Hct 35.2 L (37.0-47.0) % Plt Count 504 H (130-400) K/uL MPV (9.4-12.4) fL Neut # (Auto) 9.68 H (1.40-6.50) K/uL Lymph # (Auto) 1.01 L (1.20-3.40) K/uL [place] # (Auto) 1.03 H (0.11-0.59) K/uL Sodium 133 L (136-145) mmol/L Potassium (3.5-5.1) mmol/L Chloride 97 L (98-107) mmol/L Glucose 122 H (70-99(Fasting)) mg/dl Urine Appearance Turbid A (Clear) Urine Protein 3+ H (Negative) Urine Ketones Trace H (Negative) Urine Blood 3+ H (Negative) Urine Nitrite Positive A (Negative) Ur Leukocyte Esterase 3+ H (Negative) Urine WBC (Auto) >50 H (0-5) /hpf Urine RBC (Auto) >20 H (0-2) /hpf U Hyaline Cast (Auto) 3-5 H (0-2) /lpf Urine Bacteria (Auto) 2+ H (None Seen) Enterobacterales (PCR) DETECTED A (NotDetected) E. coli (PCR) DETECTED A (NotDetected) CTX-M Gene Resistance (PCR) DETECTED A* (NotDetected) 12/29/23 Range/Units 07:07 WBC 13.53 H (4.8-10.8) K/ul RBC 3.67 L (4.20-5.40) M/uL Hgb 11.8 L (12.0-16.0) g/dl Hct 34.5 L (37.0-47.0) % Plt Count 461 H (130-400) K/uL MPV 9.1 L (9.4-12.4) fL Neut # (Auto) 10.66 H (1.40-6.50) K/uL Lymph # (Auto) (1.20-3.40) K/uL [place] # (Auto) 1.33 H (0.11-0.59) K/uL Sodium (136-145) mmol/L Potassium 3.3 L (3.5-5.1) mmol/L Chloride (98-107) mmol/L Glucose 122 H (70-99(Fasting)) mg/dl Urine Appearance (Clear) Urine Protein (Negative) Urine Ketones (Negative) Urine Blood (Negative) Urine Nitrite (Negative) Ur Leukocyte Esterase (Negative) Urine WBC (Auto) (0-5) /hpf Urine RBC (Auto) (0-2) /hpf U Hyaline Cast (Auto) (0-2) /lpf Urine Bacteria (Auto) (None Seen) Enterobacterales (PCR) (NotDetected) E. coli (PCR) (NotDetected) CTX-M Gene Resistance (PCR) (NotDetected) Diagnostic Findings Renal Ultrasound 12/28/23 15:59 US renal/blad retro comp CLINICAL HISTORY: pyelo/obstruction eval TECHNIQUE: Multiple sonographic real-time images of the kidneys and bladder were obtained. COMPARISON: Comparison is made to CT abdomen pelvis 12/23/2023 FINDINGS: The right kidney measures 11.0 cm in length, and the left kidney measures 11.8 cm in length. The right kidney is normal in size, contour, cortical thickness, and echogenicity. No hydronephrosis is identified. Nonobstructive nephrolithiasis is seen. The left kidney is normal in size, contour, cortical thickness and echogenicity. No hydronephrosis is identified. No renal lesion is identified. A Cleary catheter is seen in the almost completely collapsed bladder. No large intraluminal mass is seen. IMPRESSION: No hydronephrosis or obstructive stone. Nonobstructive stone is seen on the left. ACT 112: Negative or not required by law. Electronically signed by: Jacob Ca M.D. 12/28/2023 5:04 PM PG Care Time/CCT Total # of Minutes Spent Total Time Spent with Patient: Total time spent is greater than 50% in coordination of care (as documented) at patient's floor/unit and/or counseling patient: Coding Level of Care Code 57813 SUB INP/OBS CARE 2/35MIN Diagnoses UTI (urinary tract infection) N39.0 Acute urinary retention R33.8 Hypokalemia E87.6 Bacteremia R78.81
[2023-12-29] MEDS: PANTOprazole 40 MG TAB PO SCH (08:34)
[2023-12-29] MEDS: VENLAFAXINE HCL XR 75 MG CAPXR PO SCH (08:34)
[2023-12-29] MEDS: POTASSIUM CHLORIDE CRTAB 20 MEQ TABCR PO ONE (08:34)
--- NOTE | 2023-12-29 09:13 | Urology Progress Note ---
Date of Service December 29, 2023 Assessment & Plan (1) Hematuria: (2) UTI (urinary tract infection): Plan Follow-up of hematuria with clot retention, UTI Afebrile overnight, hemodynamically stable Labs reviewedcreatinine 0.75, WBC 13.53 Urine culture showing E. coli Blood cultures with gram-negative bacilli Continue with broad-spectrum antibiotics and narrow per sensitivity data when available Yin patent and draining pink urine Maintain Yin catheter until urology follow-up Okay to gently hand irrigate catheter for clot obstruction Continue supportive care, antibiotics and medical management per hospital medicine service She is scheduled for stent removal and voiding trial on 01/01, will tentatively keep as scheduled depending on clinical course will follow peripherally, please contact our service with any additional questions or concerns Admission and Anticipated Discharge Date Admission Date: December 28, 2023 Subjective Patient seen and examined at bedside this morning She is awake and resting in bed Denies flank pain at present Yin intact Reports no issues with catheter overnight Denies fevers/chills Review of Systems Constitutional: as per Subjective / HPI Genitourinary: as per Subjective / HPI Physical Exam Constitutional: well developed and well nourished; no acute distress Respiratory: normal respiratory effort; no respiratory distress and no labored breathing Gastrointestinal (Abdomen): Inspection/Auscultation: abdomen normal to inspection Musculoskeletal: Head/Neck/Chest: normocephalic Neurologic: moves all extremities and awake Psychiatric: Orientation: alert and oriented x 3 Genitourinary: Yin draining pink urine, no clots noted Results & Data Vital Signs (Past 12 Hours) Vital Signs Temp Pulse Resp BP Pulse Ox O2 Del Method 12/29/23 06:58 37.5 C 90 16 104/71 95 Room Air PG Care Time/CCT Total # of Minutes Spent Total Time Spent with Patient: Total time spent is greater than 50% in coordination of care (as documented) at patient's floor/unit and/or counseling patient: Coding Level of Care Code 69580 SUB INP/OBS CARE 07/20MIN Diagnoses Hematuria R31.9 UTI (urinary tract infection) N39.0
[2023-12-29] MEDS: ACETAMINOPHEN 325 MG TAB PO PRN (14:50)
[2023-12-30 08:13] LABS: Basophils # (auto) 0.03 K/uL (0.00-0.20); Basophils % (auto) 0.3 %; Eosinophils # (auto) 0.05 K/uL (0.00-0.50); Eosinophils % (auto) 0.5 %; Hematocrit (blood only) 33.4 % (37.0-47.0); Hemoglobin 11.1 g/dl (12.0-16.0); Immature Granulocytes # (auto) 0.04 K/uL (0.01-0.20); Immature Granulocytes % (auto) 0.4 %; Lymphocytes % (auto) 13.9 %; Mean Corpuscular Hemoglobin 31.8 pg (25.0-34.0); Mean Corpuscular Hgb Conc 33.2 g/dL (32.0-36.0); Mean Corpuscular Volume 95.7 fL (80.0-100.0); Mean Platelet Volume 9.5 fL (9.4-12.4); Monocytes # (auto) 0.86 K/uL (0.11-0.59); Monocytes % (auto) 9.2 %; Neutrophils # (auto) 7.04 K/uL (1.40-6.50); Neutrophils % (auto) 75.7 %; Platelet Count 487 K/uL (130-400); RDW Coefficient of Variation 11.6 % (11.5-14.5); Red Blood Count 3.49 M/uL (4.20-5.40); White Blood Count 9.32 K/ul (4.8-10.8)
[2023-12-30 08:15] LABS: BUN Creatinine Ratio 16.2 (10-20); Calcium 8.8 mg/dl (8.6-10.3); Est GFR (African American) 114.9 ml/min; Est GFR (Non-African American) 99.2 ml/min; Magnesium 2.2 mg/dl (1.7-2.4); Phosphorus 2.8 mg/dl (2.5-4.9); Potassium 3.9 mmol/L (3.5-5.1)
--- NOTE | 2023-12-30 08:30 | Hospitalist Progress Note ---
Date of Service December 30, 2023 Assessment & Plan (1) UTI (urinary tract infection): (2) Acute urinary retention: (3) Hypokalemia: (4) Bacteremia: (5) Constipation: Plan #Acute Urinary Retention #Hematuria #Radiation cystitis - recent h/o nephrolithiasis w/ obstructive uropathy, h/o cysto and laser destruction, cleary placement - indwelling cleary, irrigated in the ER with 700cc output - urology on board, no plans for any procedure at this time, though plans for stent removal and voiding trial on 01/01 - cont tamsulosin #GNR bacteremia - ESBL E coli bacteremia - cont ertapenem - spoke with ID, recs a total of 10 day course, Last dose will be January 07, 2024 #UTI - UA limited by indwelling catheter, however, following exchange, urine is with 2+ bacteria, leuk esterase, nitrates. pt symptomatic with fatigue, borderline fever, also leukocytosis - started on cefepime in the ER, currently on Ertapenem - UCx growing ESBL E coli - case discussed with ID #Hypokalemia - replete and monitor #Constipation - Senna S BID initiated #Anxiety / Depression - cont venlafaxine #GERD - cont PPI DVT prophylaxis: SCD, pharmacal prophylaxis held due to hematuria Disposition: Medical surgical CODE STATUS: Full code Diet: Heart healthy Admission and Anticipated Discharge Date Admission Date: December 29, 2023 Subjective No acute events overnight Fatigue still present, also complaining of constipation Review of Systems Review of Systems: comprehensive ROS reviewed Physical Exam Physical Exam: Gen: no acute distress, sitting in bed comfortable HEENT: normocephalic / atraumatic, anicteric, moist mucous membranes CVS: s1s2 nl, RRR, no M/R/G Lungs: CTAB Abd: + bowel sounds, soft, nontender, nondistended, no rigidity / guarding / rebound : + cleary in place with hematuria Ext: no edema Neuro: awake, alert Psych: non anxious PG Care Time/CCT Total # of Minutes Spent Total Time Spent with Patient: Total time spent is greater than 50% in coordination of care (as documented) at patient's floor/unit and/or counseling patient: Coding Level of Care Code 15283 SUB INP/OBS CARE 3/50MIN Diagnoses UTI (urinary tract infection) N39.0 Acute urinary retention R33.8 Hypokalemia E87.6 Bacteremia R78.81 Constipation K59.00
[2023-12-30] MEDS: DOCUSATE SODIUM/SENNA 50/8.6MG TAB PO SCH (13:24)
[2023-12-31 06:46] LABS: Basophils # (auto) 0.03 K/uL (0.00-0.20); Basophils % (auto) 0.5 %; Eosinophils # (auto) 0.09 K/uL (0.00-0.50); Eosinophils % (auto) 1.6 %; Hematocrit (blood only) 32.5 % (37.0-47.0); Hemoglobin 10.9 g/dl (12.0-16.0); Immature Granulocytes # (auto) 0.02 K/uL (0.01-0.20); Immature Granulocytes % (auto) 0.4 %; Lymphocytes # (auto) 1.29 K/uL (1.20-3.40); Lymphocytes % (auto) 23.6 %; Mean Corpuscular Hemoglobin 32.2 pg (25.0-34.0); Mean Corpuscular Hgb Conc 33.5 g/dL (32.0-36.0); Mean Corpuscular Volume 95.9 fL (80.0-100.0); Mean Platelet Volume 9.4 fL (9.4-12.4); Monocytes # (auto) 0.61 K/uL (0.11-0.59); Monocytes % (auto) 11.2 %; Neutrophils # (auto) 3.42 K/uL (1.40-6.50); Neutrophils % (auto) 62.7 %; Platelet Count 525 K/uL (130-400); RDW Coefficient of Variation 11.3 % (11.5-14.5); RDW Standard Deviation 40.1 fL (36.4-46.3); Red Blood Count 3.39 M/uL (4.20-5.40); White Blood Count 5.46 K/ul (4.8-10.8)
[2023-12-31 07:14] LABS: BUN Creatinine Ratio 23.9 (10-20); Calcium 8.8 mg/dl (8.6-10.3); Creatinine Clr Calc Pharmacy 88.3 ml/min; Est GFR (African American) 115.5 ml/min; Est GFR (Non-African American) 99.7 ml/min; Magnesium 2.1 mg/dl (1.7-2.4); Phosphorus 3.2 mg/dl (2.5-4.9); Potassium 3.9 mmol/L (3.5-5.1)
--- NOTE | 2023-12-31 10:22 | Discharge Summary ---
Discharge Summary Date of Service December 31, 2023 Principal Dx & Hospital Course #1 = Principal Diagnosis (1) UTI (urinary tract infection): (2) Acute urinary retention: (3) Hypokalemia: (4) Bacteremia: (5) Constipation: (6) Infection due to ESBL-producing Escherichia coli: Plan #Acute Urinary Retention #Hematuria #Radiation cystitis - recent h/o nephrolithiasis w/ obstructive uropathy, h/o cysto and laser destr uction, cleary placement - indwelling cleary, irrigated in the ER with 700cc output - urology on board, no plans for any procedure at this time, though plans for stent removal and voiding trial on 01/01 - cont tamsulosin #ESBL E coli bacteremia - cont ertapenem - spoke with ID, recs a total of 10 day course, Last dose will be January 07, 2024 - outpatient infusion setup at the infusion center. Pt's will provide transportation. #UTI - UA limited by indwelling catheter, however, following exchange, urine is with 2+ bacteria, leuk esterase, nitrates. pt symptomatic with fatigue, borderline fever, also leukocytosis - started on cefepime in the ER, currently on Ertapenem - UCx growing ESBL E coli - case discussed with ID #Hypokalemia - replete and monitor #Constipation - Senna S BID initiated #Anxiety / Depression - cont venlafaxine #GERD - cont PPI DVT prophylaxis: SCD, pharmacal prophylaxis held due to hematuria Disposition: Medical surgical CODE STATUS: Full code Diet: Heart healthy Notes For Next Care Provider Medication Changes From Visit Ertapenem added until 01/07/2024 Admission HPI Per Admitting Provider Iqra is a 53-year-old female past medical history of kidney stones with cystoscopy and laser destruction, cervical cancer post hysterectomy, adjustment disorder with anxiety, and recent admission with discharge 12/25/2023 after being admitted for urinary retention with acute renal failure who was discharged with a Cleary in place and outpatient follow-up to urology. She was seen in the office by urology 12/26 for bladder pain and decreased Cleary output, had some dark red urine in the catheter bag at that point. Cleary catheter was irrigated and had rapid return of about a 50 cc of red-tinged urine. Patient returned home however this morning had no output from her catheter with increased abdominal discomfort and presented to the ER. Cleary was exchanged with bladder decompression and drainage of approximately 700cc of red-tinged urine. Case was reviewed with urology while in the ER, recommended treatment of possible underlying UTI and observation with medical admission. Seen at the bedside. Endorses fatigue, suprapubic discomfort, difficulty voiding into her Cleary. She reports in the last day she has also had a feeling of chills and feeling feverish. She reports a burning sensation at the Cleary catheter which is new in the last 24 hours. Denies nausea/vomiting. Denies cough. Denies diarrhea constipation. Has had intermittent bloody output into her Cleary catheter since her stone management, she takes aspirin for primary prevention but has not taken this since December 13. At time bedside assessment she reports that the pressure in her pelvis feels improved after the Cleary exchange, but she still has discomfort and burning at the Cleary site. Medical History: Reviewed Medications: Reviewed Surgical History: Reviewed Family history: Reviewed Allergies: Reviewed Social History: Reviewed Code Status: Full Discharge Exam Gen: no acute distress, sitting in bed comfortable HEENT: normocephalic / atraumatic, anicteric, moist mucous membranes CVS: s1s2 nl, RRR, no M/R/G Lungs: CTAB Abd: + bowel sounds, soft, nontender, nondistended, no rigidity / guarding / rebound : + cleary in place with hematuria Ext: no edema Neuro: awake, alert Psych: non anxious Updated Medication List Medication Instructions Recorded Confirmed Type cholecalciferol (vitamin D3) 25 1,000 unit PO QAM 07/12/18 12/28/23 History mcg (1,000 unit) capsule (Vitamin D3) multivitamin 1 tab PO QAM 07/12/18 12/28/23 History omeprazole 40 mg capsule,delayed 40 mg PO QAM #90 caps 08/24/23 12/28/23 Rx release ascorbic acid (vitamin C) 500 mg 500 mg PO QAM 12/13/23 12/28/23 History capsule oxycodone-acetaminophen 7.5 mg-325 1 tab PO Q8H PRN pain #7 tabs 12/21/23 12/28/23 Rx mg tablet (Percocet) phenazopyridine 200 mg tablet 200 mg PO Q8H PRN pain #10 tabs 12/21/23 12/28/23 Rx (Pyridium) tamsulosin 0.4 mg capsule 0.4 mg PO HS #30 caps 12/21/23 12/28/23 Rx venlafaxine 75 mg capsule,extended 75 mg PO QAM 12/23/23 12/28/23 History release 24 hr aspirin 81 mg tablet,delayed 81 mg PO DAILY 12/28/23 12/28/23 History release polyethylene glycol 3350 17 gram 17 g PO DAILY PRN constipation 12/31/23 Rx oral powder packet (Miralax) #100 ea sennosides 8.6 mg-docusate sodium 1 tab PO BID #90 tabs 12/31/23 Rx 50 mg tablet (Senokot-S) Hospital Stay Data Consultations 12/28/23 17:15 ED Decision to Admit Stat 12/30/23 08:04 Consult Infectious Diseases Stat Diagnostic Imagining Performed 12/28/23 15:59 US Renal Bladder [US renal/blad retro comp] Urgent Pending Results Patient Have Any Pending Studies at Discharge: No Discharge Instructions Given to Patient (Per Discharging Provider) You were admitted to the hospital for the evaluation of decreased urine output. While in the hospital you were found to have drug resistant bacteria (ESBL E coli) in your urine and your blood. Your case was discussed with infectious disease team and they recommended Ertapenem for 10 days, last dose on January 06. You will need to go to infusion center for daily for your antibiotic infusion. Your cleary was changed in the ED with good output. Your discharge plan was also discussed with urologist and the plan is for them to see you on January 01 for stent removal. If you have any questions, please contact the urology office on Monday. Please also follow up with your primary care doctor within 7 to 10 days of discharge. You are now medically stable for discharge. It was a pleasure being a part of your medical care team during your stay at [facility]. Total Time Total Time Spent Total Time Spent (In Minutes): 45 mins Coding Level of Care Code 46427 INP/OBS DISCH >30 MIN Diagnoses UTI (urinary tract infection) N39.0 Acute urinary retention R33.8 Hypokalemia E87.6 Bacteremia R78.81 Constipation K59.00 Infection due to ESBL-producing Escherichia coli A49.8; Z16.12
== END 2023-12-31 12:23 | disposition home or self-care (01) | DRG 699 ==
LOC: ED 12:40 → 3N 12:40 → SUATTDRO 15:47 → 3N 17:48
DX: N13.9 Obstructive and reflux uropathy, unspecified; R78.81 Bacteremia; Y84.6 Urinary catheterization as the cause of abnormal reaction of the patient, or of later complication, without mention of misadventure at the time of the procedure; Z85.41 Personal history of malignant neoplasm of cervix uteri; Z79.899 Other long term (current) drug therapy; Z16.12 Extended spectrum beta lactamase (ESBL) resistance; F32.A Depression, unspecified; Z88.8 Allergy status to other drugs, medicaments and biological substances; E87.6 Hypokalemia; B96.20 Unspecified Escherichia coli [E. coli] as the cause of diseases classified elsewhere; Z90.710 Acquired absence of both cervix and uterus; T83.511A Infection and inflammatory reaction due to indwelling urethral catheter, initial encounter; F41.9 Anxiety disorder, unspecified; Z88.5 Allergy status to narcotic agent; N30.41 Irradiation cystitis with hematuria; K59.00 Constipation, unspecified; Z79.82 Long term (current) use of aspirin; K21.9 Gastro-esophageal reflux disease without esophagitis

== ENCOUNTER 2024-01-14 00:36 | Inpatient (IN) ==
[2024-01-14] MEDS: ACETAMINOPHEN 1,000 MG/100 ML VIAL IV STA (01:26)
[2024-01-14 01:27] LABS: Basophils # (auto) 0.03 K/uL (0.00-0.20); Basophils % (auto) 0.2 %; Eosinophils # (auto) 0.01 K/uL (0.00-0.50); Eosinophils % (auto) 0.1 %; Hematocrit (blood only) 32.6 % (37.0-47.0); Immature Granulocytes # (auto) 0.06 K/uL (0.01-0.20); Immature Granulocytes % (auto) 0.4 %; Lymphocytes # (auto) 1.26 K/uL (1.20-3.40); Lymphocytes % (auto) 8.9 %; Mean Corpuscular Hemoglobin 31.4 pg (25.0-34.0); Mean Corpuscular Hgb Conc 33.7 g/dL (32.0-36.0); Mean Corpuscular Volume 93.1 fL (80.0-100.0); Mean Platelet Volume 9.2 fL (9.4-12.4); Monocytes # (auto) 1.14 K/uL (0.11-0.59); Monocytes % (auto) 8.1 %; Neutrophils % (auto) 82.3 %; Platelet Count 562 K/uL (130-400); RDW Coefficient of Variation 11.8 % (11.5-14.5); RDW Standard Deviation 39.8 fL (36.4-46.3)
[2024-01-14] MEDS: SODIUM CHLORIDE 0.9% 1,000 ML IV SCH (01:27)
[2024-01-14 01:30] LABS: Appearance Urine Clear (Clear); Bacteria Urine Automated None Seen (None Seen); Bilirubin Urine Negative (Negative); Blood Urine 1+ (Negative); Cast Urine Automated 0-2 /lpf (0-2); Color Urine Yellow; Epithelial Cell Urine Auto 0-2 /hpf (0-2); Glucose Urine UA Negative (Negative); Ketones Urine Negative (Negative); Leukocyte Esterase Urine 3+ (Negative); Nitrite Urine Negative (Negative); Protein Urine Trace (Negative); RBC Urine Automated 0-2 /hpf (0-2); Specific Gravity Urine 1.007 (1.000-1.030); Urobilinogen Urine Negative (Negative); WBC Urine Automated >50 /hpf (0-5)
--- NOTE | 2024-01-14 01:30 | Emergency Department Note ---
History of Present Illness General Chief complaint: Fever Stated complaint: FEVER,ABD PAIN Time Seen by Provider: 01/14/24 00:55 History of Present Illness Maximum Pain Intensity: 9 This 53-year-old female with a history of ESBL E. coli urine infections who just finished Invanz presents the ER for fever, nausea, vomiting and abdominal pain for the past few days. Patient took Tylenol at 6 PM. Patient has chest pain, dyspnea, headache, cough, congestion. She does have urinary symptoms. Home Medications Medication Instructions Recorded Confirmed Type cholecalciferol (vitamin D3) 25 1,000 unit PO QAM 07/12/18 01/14/24 History mcg (1,000 unit) capsule (Vitamin D3) multivitamin 1 tab PO QAM 07/12/18 01/14/24 History omeprazole 40 mg capsule,delayed 40 mg PO QAM #90 caps 08/24/23 01/14/24 Rx release ascorbic acid (vitamin C) 500 mg 500 mg PO QAM 12/13/23 01/14/24 History capsule oxycodone-acetaminophen 7.5 mg-325 1 tab PO Q8H PRN pain #7 tabs 12/21/23 01/14/24 Rx mg tablet (Percocet) phenazopyridine 200 mg tablet 200 mg PO Q8H PRN pain #10 tabs 12/21/23 01/14/24 Rx (Pyridium) tamsulosin 0.4 mg capsule 0.4 mg PO HS #30 caps 12/21/23 01/14/24 Rx venlafaxine 75 mg capsule,extended 75 mg PO QAM 12/23/23 01/14/24 History release 24 hr aspirin 81 mg tablet,delayed 81 mg PO DAILY 12/28/23 01/14/24 History release polyethylene glycol 3350 17 gram 17 g PO DAILY PRN constipation 12/31/23 01/14/24 Rx oral powder packet (Miralax) #100 ea sennosides 8.6 mg-docusate sodium 1 tab PO BID #90 tabs 12/31/23 01/14/24 Rx 50 mg tablet (Senokot-S) tizanidine 4 mg tablet 4 mg PO Q8H PRN muscle spasticity 01/01/24 01/14/24 Rx #30 tabs Allergies Allergy/AdvReac Type Severity Reaction Status Date / Time chlorpheniramine AdvReac Intermediate HEART RACES Verified 01/14/24 01:35 dextromethorphan AdvReac Intermediate HEART RACED Verified 01/14/24 01:35 phenylpropanolamine AdvReac Intermediate HEART RACES Verified 01/14/24 01:35 promethazine AdvReac Intermediate HALLUCINATI Verified 01/14/24 01:35 ONS pseudoephedrine AdvReac Intermediate HEART RACED Verified 01/14/24 01:35 amitriptyline AdvReac Unknown PT DENIES Verified 01/14/24 01:35 THIS ALLERGY citalopram [From Celexa] AdvReac Unknown PT DENIES Verified 01/14/24 01:35 THIS ALLERGY escitalopram [From Lexapro] AdvReac Unknown PT DENIES Verified 01/14/24 01:35 THIS ALLERGY sertraline AdvReac Unknown PT DENIES Verified 01/14/24 01:35 THIS ALLERGY solifenacin [From Vesicare] AdvReac Unknown Unknown Verified 01/14/24 01:35 Past Med/Surg History Problem List (Updated 01/14/24 @ 02:20 by May Anderson PA-C) Fever (Acute) History of ESBL E. coli infection (Acute) Acute UTI (Acute) Infection due to ESBL-producing Escherichia coli Constipation Bacteremia Hypokalemia Acute urinary obstruction (Acute) Complication of Yin catheter (Acute) Hematuria (Acute) Cystitis (Acute) UTI (urinary tract infection) Acute urinary retention (Acute) Acute renal failure (Acute) Abdominal pain Arthritis of carpometacarpal (CMC) joint of right thumb Globus sensation Numbness and tingling of right leg Right leg pain Dyspnea on exertion Temporomandibular joint (TMJ) pain Blurry vision Daily headache Dizziness Osteoarthritis of carpometacarpal joint of left thumb Hyperlipidemia Unsatisfactory cervical cytology smear Routine gynecological examination Hot flashes Elevated platelet count Neck pain Pes anserinus bursitis of both knees Adjustment disorder with anxiety (Acute) Low back pain (Acute) Health care maintenance 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 (Acute) - 2003-post abdominal hysterectomy with lymph node dissection/radiotherapy with chemo sensitization November 19, 2003 Stress incontinence in female (Acute) Urinary bladder incontinence Medical History Kidney stones Stress incontinence in female Adjustment disorder with anxiety Osteoarthritis of carpometacarpal (CMC) joint of left thumb Radiation cystitis Hyperlipidemia TMJ (temporomandibular joint syndrome) "only have problems when I eat something hard" Lumbar radiculopathy denies Cervical cancer S/p hysterectomy with lymph node dissection and XRT and chemo () Sensation of lump in throat occasionally per patient Schwannoma post resection - 03/14/2019 - in [facility] [place] Colitis UNDER CONTROL GERD (gastroesophageal reflux disease) Surgical History History of cystoscopy cysto, mid-urethral sling 09/13/21: [place]: LMA#4 without issue History of surgery on left wrist left thumb CMC joint; 11/16/23 [facility] [place] Hx of foot surgery LEFT-BONE GRAFT History of esophagogastroduodenoscopy (EGD) History of colonoscopy History of hysterectomy total hyster 2005 Family History Father Myocardial infarction Hypertension Mother Myocardial infarction Hypertension Stroke Diabetes Grandfather (Maternal) Diabetes Social History Smoking Status: Never smoker Second Hand Exposure: No; Do You Dip or Chew Tobacco: No; Hx Alcohol Use: No Hx Substance Use: No Preferred Language: Mozambican Communication Ability: Effective Visual Impairment: No Limitations 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: Normal Manager Equipment Required: No Beliefs That Will Affect Care: None marital status: Current Living Situation: Spouse current occupational status: employed current occupation: [employer] Feels Safe at Home: Yes Childhood Exposure to Second-Hand Smoke: Yes Diet: regular Dental Care, Regularly: Yes Physical Activity Frequency: 1-2 Times per Week Seatbelt Use: always Sunscreen Use: Yes Assistive Devices: Glasses Review of Systems A total of 10 systems reviewed and were otherwise negative Physical Exam Vital Signs Vital Signs - 24 hr 01/14/24 00:39 01/14/24 01:27 01/14/24 01:27 Temperature 38 C H Temperature Source Oral Pulse Rate 113 H 96 H Pulse Rate [Apical] 96 H Pulse Rhythm [Apical] Regular Respiratory Rate 20 22 Respiratory Effort / Characteristics Non-Labored Spontaneous Non-Labored Spontaneous Respiratory Depth Normal Normal Respiratory Pattern Regular Blood Pressure 127/80 Blood Pressure [Left Arm] 126/84 Blood Pressure Mean 95 Blood Pressure Mean [Left Arm] 98 Blood Pressure Position [Left Arm] Semi-fowlers Pulse Oximetry 96 93 Oxygen Delivery Method Room Air Room Air Sepsis Recent Fever Within 48 Hours Yes Sepsis New/Unexplained Change in Mental Status No Sepsis Action Taken by Nursing No Action Required 01/14/24 01:47 01/14/24 01:58 01/14/24 02:23 Temperature 37.0 C Temperature Source Oral Pulse Rate Pulse Rate [Apical] 88 90 Pulse Rhythm [Apical] Regular Regular Respiratory Rate 16 18 Respiratory Effort / Characteristics Non-Labored Spontaneous Non-Labored Spontaneous Respiratory Depth Normal Normal Respiratory Pattern Regular Regular Blood Pressure Blood Pressure [Left Arm] 104/66 111/75 Blood Pressure Mean Blood Pressure Mean [Left Arm] 78 87 Blood Pressure Position [Left Arm] Semi-fowlers Semi-fowlers Pulse Oximetry 97 94 92 Oxygen Delivery Method Room Air Room Air Room Air Sepsis Recent Fever Within 48 Hours Sepsis New/Unexplained Change in Mental Status Sepsis Action Taken by Nursing VITALS: Vitals are noted on the nurse's note and reviewed by myself. Vital signs stable. GENERAL: Pleasant female ill-appearing, in no acute distress, nondiaphoretic, well-developed well-nourished. SKIN: Capillary reflex less than 2 seconds. HEENT: Normocephalic. PERRLA. EOMI. Nares patent. Mucous membranes moist. Neck is supple without nuchal rigidity. HEART: Regular rate and rhythm LUNGS: Clear to auscultation bilaterally without wheezes, rales or rhonchi. No retractions or accessory muscle use. ABDOMEN: Positive bowel sounds x 4. Normal tympanic percussion. Soft, tender right lower quadrant, without masses or organomegaly. Preston sign negative. No guarding or rebound tenderness. no CVA tenderness MUSCULOSKELETAL: No gross musculoskeletal defects. NEURO: Patient was alert and oriented to person place and time. No focal neurological deficits. Course Administered Medications Discontinued Medications Sodium Chloride (Nss) 1,000 mls @ 999 mls/hr IV .Q1H1M GEOVANNA Stop: 01/14/24 02:00 Last Infusion: 01/14/24 02:28 Dose: Infused Documented By: Admin: 01/14/24 01:27 Dose: 999 mls/hr Documented By: ABDULAZIZ Ertapenem (Invanz) 10 mls @ 2 mls/min IV NOW STA Stop: 01/14/24 01:01 Last Admin: 01/14/24 01:52 Dose: 2 mls/min Documented By: ABDULAZIZ Acetaminophen (Ofirmev) 1,000 mg in 100 mls @ 400 mls/hr IV NOW STA Stop: 01/14/24 01:17 Last Infusion: 01/14/24 01:41 Dose: Infused Documented By: Admin: 01/14/24 01:26 Dose: 400 mls/hr Documented By: ABDULAZIZ Sodium Chloride (Nss) 500 mls @ 999 mls/hr IV .Q31M ONE Stop: 01/14/24 01:33 Last Infusion: 01/14/24 02:20 Dose: Infused Documented By: Admin: 01/14/24 01:49 Dose: 999 mls/hr Documented By: ABDULAZIZ Medical Decision Making Medical Records Attestation: I reviewed the patient's medical records. Home Medications Current Medication List: was personally reviewed by me Laboratory Data Attestation: I reviewed the patient's lab results. 01/14/24 01:12 01/14/24 01:12 Lab Results 01/14/24 Range/Units 01:12 WBC 14.10 H (4.8-10.8) K/ul RBC 3.50 L (4.20-5.40) M/uL Hgb 11.0 L (12.0-16.0) g/dl Hct 32.6 L (37.0-47.0) % MCV 93.1 (80.0-100.0) fL MCH 31.4 (25.0-34.0) pg MCHC 33.7 (32.0-36.0) g/dL RDW Std Deviation 39.8 (36.4-46.3) fL RDW Coeff of Verito 11.8 (11.5-14.5) % Plt Count 562 H (130-400) K/uL MPV 9.2 L (9.4-12.4) fL Immature Gran % (Auto) 0.4 % Neut % (Auto) 82.3 % Lymph % (Auto) 8.9 % [place] % (Auto) 8.1 % Eos % (Auto) 0.1 % Baso % (Auto) 0.2 % Neut # (Auto) 11.60 H (1.40-6.50) K/uL Lymph # (Auto) 1.26 (1.20-3.40) K/uL [place] # (Auto) 1.14 H (0.11-0.59) K/uL Eos # (Auto) 0.01 (0.00-0.50) K/uL Baso # (Auto) 0.03 (0.00-0.20) K/uL Immature Gran # (Auto) 0.06 (0.01-0.20) K/uL Sodium 134 L (136-145) mmol/L Potassium 3.6 (3.5-5.1) mmol/L Chloride 100 (98-107) mmol/L Carbon Dioxide 25 (21-32) mmol/L Anion Gap 9 (3-11) BUN 11 (6-23) mg/dl Creatinine 0.64 (0.6-1.2) mg/dl Est Cr Clr Drug Dosing 86.7 ml/min Est GFR ( Amer) 117.3 ml/min Est GFR (Non-Af Amer) 101.2 ml/min BUN/Creatinine Ratio 17.2 (10-20) Glucose 133 H (70-99(Fasting)) mg/dl Lactate 1.1 (0.4-2.0) mmol/L Calcium 9.1 (8.6-10.3) mg/dl Magnesium 1.8 (1.7-2.4) mg/dl Total Bilirubin 0.7 (0.2-1.0) mg/dl Direct Bilirubin 0.1 (0-0.2) mg/dl AST 16 (13-39) U/L ALT 21 (7-52) U/L Alkaline Phosphatase 59 (34-104) U/L Troponin I High Sens 4.3 (0-14) pg/ml Total Protein 7.3 (6.0-8.3) gm/dl Albumin 4.0 (3.4-5.0) gm/dl Urine Color Yellow Urine Appearance Clear (Clear) Urine pH 6.0 (4.5-7.5) Ur Specific [place] 1.007 (1.000-1.030) Urine Protein Trace H (Negative) Urine Glucose (UA) Negative (Negative) Urine Ketones Negative (Negative) Urine Blood 1+ H (Negative) Urine Nitrite Negative (Negative) Urine Bilirubin Negative (Negative) Urine Urobilinogen Negative (Negative) Ur Leukocyte Esterase 3+ H (Negative) Urine WBC (Auto) >50 H (0-5) /hpf Urine RBC (Auto) 0-2 (0-2) /hpf U Hyaline Cast (Auto) 0-2 (0-2) /lpf U Epithel Cells (Auto) 0-2 (0-2) /hpf Urine Bacteria (Auto) None Seen (None Seen) Adenovirus (PCR) Not Detected (NotDetected) B. pertussis DNA (PCR) Not Detected (NotDetected) B.parapertussis DNA PCR Not Detected (NotDetected) C. pneumoniae DNA (PCR) Not Detected (NotDetected) Coronavirus OC43 (PCR) Not Detected (NotDetected) Coronavirus HKU1 (PCR) Not Detected (NotDetected) Coronavirus 229E (PCR) Not Detected (NotDetected) SARS-CoV-2 (PCR) Not Detected (NotDetected) Coronavirus NL63 (PCR) Not Detected (NotDetected) Human Metapneumovir PCR Not Detected (NotDetected) Influenza Type A (PCR) Not Detected (NotDetected) Influenza Type B (PCR) Not Detected (NotDetected) M. pneumoniae (PCR) Not Detected (NotDetected) Parainfluenza 1 (PCR) Not Detected (NotDetected) Parainfluenza 2 (PCR) Not Detected (NotDetected) Parainfluenza 3 (PCR) Not Detected (NotDetected) Parainfluenza 4 (PCR) Not Detected (NotDetected) RSV (PCR) Not Detected (NotDetected) Entero/Rhino (PCR) Not Detected (NotDetected) Imaging Data Attestation: I personally reviewed and interpreted this imaging study as follows: Radiologist's Impression: Abdomen/Pelvis CT 01/14/24 02:18 Exam(s): CT ABDOMEN + PELVIS Without Contrast EXAM: CT Abdomen and Pelvis Without Intravenous Contrast CLINICAL HISTORY: Reason for exam: rlq pain, uti, sepsis. TECHNIQUE: Axial computed tomography images of the abdomen and pelvis without intravenous contrast. CTDI is 15.97 mGy and DLP is 100.47 mGy-cm. Automated exposure control was utilized for the study. A dose lowering technique was utilized adhering to the principles of ALARA. COMPARISON: 12/23/23 FINDINGS: Lung bases: Unremarkable. No mass. No consolidation. ABDOMEN: Liver: Calcified hepatic granulomata. Gallbladder and bile ducts: Unremarkable. No calcified stones. No ductal dilation. Pancreas: Unremarkable. No ductal dilation. Spleen: Unremarkable. No splenomegaly. Adrenals: Unremarkable. No mass. Kidneys and ureters: Left kidney and collecting system are normal. Mild right-sided hydroureteronephrosis with urothelial thickening in the right ureter. No obstructing ureteral stone. Stomach and bowel: Unremarkable. No mucosal thickening. No bowel obstruction. PELVIS: Appendix: Visualized segments of the appendix appear normal. Bladder: Bladder wall thickening and perivesicular fat stranding, possibly cystitis. No stones. Reproductive: Hysterectomy. ABDOMEN and PELVIS: Intraperitoneal space: Unremarkable. No free air, significant free fluid, or fluid collection. Bones/joints: No acute fracture or dislocation. Soft tissues: Unremarkable. Vasculature: Unremarkable. No abdominal aortic aneurysm. Lymph nodes: Unremarkable. No enlarged lymph nodes. IMPRESSION: 1. Bladder wall thickening and perivesicular fat stranding, possibly cystitis. 2. Mild right-sided hydroureteronephrosis with urothelial thickening in the right ureter. No obstructing ureteral stone. Findings may be on the basis of urinary tract infection, ureteral stricture, or recently passed kidney stone. 3. Correlate with urinalysis. Electronically signed by: Sheron Garcia M.D. 01/14/24 03:18 AM MDM Narrative Prior records/ancillary studies reviewed. Triage Nursing notes reviewed. Additional history obtained from family. The patient's history was concerning for fever. Differential diagnosis: Etiologies such as ESBL E. coli, viral syndrome, otitis, pharyngitis, pneumonia, influenza, meningitis, urinary tract infection, sepsis, bacteremia, as well as others were entertained. Physical examination: As above ER treatment provided: An order was placed for continuous cardiac monitoring. The monitor shows a rate of 60-1 50 with a sinus rhythm per my interpretation. Septic protocol IV fluids, Invanz, Tylenol On reassessment the patient felt better. Diagnostics interpreted by me: ECG: Ordered for fever EKG: Normal sinus, normal intervals, no acute ST-T changes. Impression normal sinus rhythm independently interpreted by myself The labs Independently Interpreted by myself revealed leukocytosis, mild anemia neg lactic Urine concerning for infection sent for culture. Prior urine culture was reviewed [facility] [address] [place] [address] / Director: Sky Resendez M.D. Clinical Laboratory Report Name: FRED FERNANDEZ Acct: [id number] Status: [place] 1970 [facility] [place] 12/29/23 Age: 53 Sex: F Dis Date: 12/31/23 Loc: Medical/Surgical/Ortho [address] [place] [address]/Bed: N376 Spec: [id number] Collected: 12/28/23 Received: 12/28/[address]: Derrick Jenkins MD Source: Blood OV Order: Ordered: Blood Culture Comments: Comment Default is separate sites, same time Blood culture drawn venously from Left Arm. Procedure Result Verified Site Blood Culture Aerobic Final 12/30/23 Organism 1 Escherichia coli ESBL Sens Sensitivities to Follow Phoned positive Blood Culture Gram Stain report to SELMA MARIANO on 12/29/23 at 0523 [place] [id number]. [place] [id number]. ESBL E col RX M.I.C. --- --------- Amox/Clav S <=8/4 Ampicillin R >16 Amp/Sul R >16/8 Cefazolin R >16 Cefepime R >16 Cefotaxime R >16 Ceftriaxone R >2 Ciprofloxacin R >2 Ertapenem S <=0.5 Gentamicin R >8 Levofloxacin R >4 Meropenem S <=1 Tobramycin R >8 Trimeth/Sulfa R >2/38 Pip/Tazo S <=16 S = SENSITIVE I = INTERMEDIATE R = RESISTANT Blood Culture Anaerobic Final 12/30/23 Organism 1 Escherichia coli ESBL Sens Sensitivities to Follow Blood Culture PCR Panel If viewing in EMR, results available under LAB Serology tab. Imaging studies: Chest x-ray with no acute consolidation, pneumothorax or free air per my independent interpretation CT as above Consultation: A consultation was placed with hospitalist. The case was discussed and diagnostics were reviewed. The patient was evaluated in the ER for further treatment. This appears to be consistent with UTI with history of ESBL concerning for developing sepsis. Patient was started on antibiotics. Prior culture was reviewed. Medicine was consulted and the case was discussed. She will be admitted to the medical service. By the evaluation outlined above emergent etiologies such as otitis, pharyngitis, pneumonia, meningitis, as well as others were deemed relatively unlikely. The pt informed about the findings as listed above. All questions were answered and pleased with the treatment. The chart was completed utilizing [employer] Speech voice recognition software. Grammatical errors, random word insertions, pronoun errors, and incomplete sentences are an occassional consequence of this system due to software limitations, ambient noise, and hardware issues. Any formal questions or concerns about the content, text, or information contained within the body of this dictation should be directly addressed to the physician office support assistant for clarification. Impression & Plan Acute UTI, History of ESBL E. coli infection, Fever Discharge Plan Visit Data Chief Complaint: Fever Stated Complaint: FEVER,ABD PAIN ED Provider: Ilene Amor ED Midlevel Provider: May Anderson Discharge Problem: Acute UTI, History of ESBL E. coli infection, Fever Patient Disposition: Admitted As Inpatient Condition: Fair Forms Stand Alone Forms: [facility] Prescriptions Prescriptions: No Action omeprazole 40 mg capsule,delayed release(DR/EC) 40 mg PO QAM Qty: 90 3RF tizanidine 4 mg tablet 4 mg PO Q8H PRN (Reason: muscle spasticity) Qty: 30 0RF multivitamin Tablet 1 tab PO QAM cholecalciferol (vitamin D3) [Vitamin D3] 1,000 unit Capsule 1,000 unit PO QAM ascorbic acid (vitamin C) 500 mg capsule 500 mg PO QAM Rx Instructions: 1 tab PO in AM; phenazopyridine [Pyridium] 200 mg tablet 200 mg PO Q8H PRN (Reason: pain) Qty: 10 0RF tamsulosin 0.4 mg capsule 0.4 mg PO HS Qty: 30 0RF oxycodone-acetaminophen [Percocet] 7.5-325 mg tablet 1 tab PO Q8H PRN (Reason: pain) Qty: 7 0RF venlafaxine 75 mg capsule,extended release 24hr 75 mg PO QAM aspirin 81 mg Tablet,Delayed Release (Dr/Ec) 81 mg PO DAILY Hold Instructions: Resume on 03/25/24. Resume once cleared by your Urologist polyethylene glycol 3350 [Miralax] 17 gram Powder In Packet 17 g PO DAILY PRN (Reason: constipation) Qty: 100 0RF sennosides-docusate sodium [Senokot-S] 8.6-50 mg Tablet 1 tab PO BID Qty: 90 0RF Referrals Referrals: Daryn Wilburn MD [Primary Care Provider] -
[2024-01-14 01:44] LABS: BUN Creatinine Ratio 17.2 (10-20); Bilirubin Direct 0.1 mg/dl (0-0.2); Bilirubin,Total 0.7 mg/dl (0.2-1.0); Calcium 9.1 mg/dl (8.6-10.3); Creatinine Clr Calc Pharmacy 86.7 ml/min; Est GFR (African American) 117.3 ml/min; Est GFR (Non-African American) 101.2 ml/min; Magnesium 1.8 mg/dl (1.7-2.4); Potassium 3.6 mmol/L (3.5-5.1); Total Protein 7.3 gm/dl (6.0-8.3)
[2024-01-14] MEDS: SODIUM CHLORIDE 0.9% 500 ML IV ONE (01:49)
[2024-01-14 01:50] LABS: Troponin I High Sensitivity 4.3 pg/ml (0-14)
[2024-01-14] MEDS: ERTAPENEM SODIUM 10 ML IV STA (01:52)
[2024-01-14 02:11] LABS: Adenovirus PCR Not Detected (NotDetected); Bordetella parapertussis PCR Not Detected (NotDetected); Bordetella pertussis PCR Not Detected (NotDetected); Chlamydia pneumoniae PCR Not Detected (NotDetected); Coronavirus 229E PCR Not Detected (NotDetected); Coronavirus CoV-2 (COVID19)PCR Not Detected (NotDetected); Coronavirus HKU1 PCR Not Detected (NotDetected); Coronavirus NL63 PCR Not Detected (NotDetected); Coronavirus OC43PCR Not Detected (NotDetected); Human Metapneumovirus PCR Not Detected (NotDetected); Influenza A PCR Not Detected (NotDetected); Influenza B PCR Not Detected (NotDetected); Mycoplasma pneumoniae PCR Not Detected (NotDetected); Parainfluenza Virus 1 PCR Not Detected (NotDetected); Parainfluenza Virus 2 PCR Not Detected (NotDetected); Parainfluenza Virus 3 PCR Not Detected (NotDetected); Parainfluenza Virus 4 PCR Not Detected (NotDetected); Respiratory Syncytial VirusPCR Not Detected (NotDetected); Rhinovirus/Enterovirus PCR Not Detected (NotDetected)
[2024-01-14] MEDS ORDERED: BACLOFEN 20 MG TAB PO PRN (02:33)
[2024-01-14] MEDS ORDERED: MoRPHine SULFATE 4 MG/ML 1 ML CARP\\VIAL IV PRN (02:35)
--- NOTE | 2024-01-14 02:44 | History & Physical Report ---
Date of Service January 14, 2024 Assessment & Plan (1) History of ESBL E. coli infection: (2) Acute UTI: (3) Fever: (4) Bacteremia: (5) Complication of Yin catheter: (6) Neck pain: (7) Sepsis due to urinary tract infection: Plan Sepsis due to UTI/recent ESBL E. coli UTI and bacteremia/recurrent urinary tract infection symptoms- Patient with leukocytosis, temperature of 38 C, fatigue, and generalized myalgias and arthralgias. Follow urine culture and sensitivity From the ED received normal saline 1 L, ertapenem 1 g IV, Tylenol 1 g IV, and NSS 500 mL bolus Patient just completed a 10-day course of ertapenem, and will therefore place on Zosyn 4.5 g IV every 8 hours, until culture reveals that resistance did not develop to ertapenem NSS + KCl 20 mill equivalents at 100 mL/h x 2 L Acetaminophen 650 mg by mouth every 6 hours as needed for mild pain or fever Percocet 7.5/3.5, 1 by mouth every 6 hours as needed for moderate pain Morphine sulfate 4 mg IV every 3 hours as needed for severe pain Florastor [address] scan of abdomen and pelvis shows bladder wall thickening and perivesicular fat stranding possibly cystitis. Mild right-sided hydroureteronephrosis with urothelial thickening in the right ureter, without obstructing ureteral stone. Findings may be on the basis of urinary tract infection, ureteral stricture, or recently passed kidney stone. Follow serial CBC with differential, renal function panel and magnesium level Cervical neck spasm and pain- Hold tizanidine, as it appears to be too sedating for patient Start baclofen 20 mg p.o. 3 times daily as needed GERD- Continue omeprazole/pantoprazole Anxiety- Continue venlafaxine History of Present Illness Chief Complaint: The patient presents to the emergency department with complaint of right flank pain, fever, nausea without vomiting for the past few days. Primary Care Provider: Daryn Wilburn MD The patient is a 53-year-old female with a past medical history including ESBL E. coli UTI and bacteremia, acute renal failure, TMJ, hyperlipidemia, low back pain, radiation cystitis, urinary stress incontinence, GERD and cervical neck muscle spasm. Recent admissions [facility] from 12/22-12/25/2023, and then 12/27- 12/31/2023. She had initially undergone lithotripsy for a right-sided ureteral stone, and then later was found on urine culture from 12/28/2023 to have ESBL E. coli UTI and bacteremia on blood cultures. She was initially placed on cefepime, but then was changed to ertapenem, and completed a 10-day course of therapy on January 06. Patient was feeling somewhat improved over the next 2 days, however, few days ago she started developing recurrent symptoms of nausea without vomiting, right sided abdominal and flank pain, and difficulty urinating. For these reasons, she presented to the ED for assessment this evening. She is also have a worsening of her usual right-sided cervical neck pain. Allergies Allergy/AdvReac Type Severity Reaction Status Date / Time chlorpheniramine AdvReac Intermediate HEART RACES Verified 01/14/24 01:35 dextromethorphan AdvReac Intermediate HEART RACED Verified 01/14/24 01:35 phenylpropanolamine AdvReac Intermediate HEART RACES Verified 01/14/24 01:35 promethazine AdvReac Intermediate HALLUCINATI Verified 01/14/24 01:35 ONS pseudoephedrine AdvReac Intermediate HEART RACED Verified 01/14/24 01:35 amitriptyline AdvReac Unknown PT DENIES Verified 01/14/24 01:35 THIS ALLERGY citalopram [From Celexa] AdvReac Unknown PT DENIES Verified 01/14/24 01:35 THIS ALLERGY escitalopram [From Lexapro] AdvReac Unknown PT DENIES Verified 01/14/24 01:35 THIS ALLERGY sertraline AdvReac Unknown PT DENIES Verified 01/14/24 01:35 THIS ALLERGY solifenacin [From Vesicare] AdvReac Unknown Unknown Verified 01/14/24 01:35 Home Medications Medication Instructions Recorded Confirmed Type cholecalciferol (vitamin D3) 25 1,000 unit PO QAM 07/12/18 01/14/24 History mcg (1,000 unit) capsule (Vitamin D3) multivitamin 1 tab PO QAM 07/12/18 01/14/24 History omeprazole 40 mg capsule,delayed 40 mg PO QAM #90 caps 08/24/23 01/14/24 Rx release ascorbic acid (vitamin C) 500 mg 500 mg PO QAM 12/13/23 01/14/24 History capsule oxycodone-acetaminophen 7.5 mg-325 1 tab PO Q8H PRN pain #7 tabs 12/21/23 01/14/24 Rx mg tablet (Percocet) phenazopyridine 200 mg tablet 200 mg PO Q8H PRN pain #10 tabs 12/21/23 01/14/24 Rx (Pyridium) tamsulosin 0.4 mg capsule 0.4 mg PO HS #30 caps 12/21/23 01/14/24 Rx venlafaxine 75 mg capsule,extended 75 mg PO QAM 12/23/23 01/14/24 History release 24 hr aspirin 81 mg tablet,delayed 81 mg PO DAILY 12/28/23 01/14/24 History release polyethylene glycol 3350 17 gram 17 g PO DAILY PRN constipation 12/31/23 01/14/24 Rx oral powder packet (Miralax) #100 ea sennosides 8.6 mg-docusate sodium 1 tab PO BID #90 tabs 12/31/23 01/14/24 Rx 50 mg tablet (Senokot-S) tizanidine 4 mg tablet 4 mg PO Q8H PRN muscle spasticity 01/01/24 01/14/24 Rx #30 tabs Past Med/Surg History Problem List (Updated 01/14/24 @ 03:32 by Jong Abbott MD) Sepsis due to urinary tract infection Fever (Acute) History of ESBL E. coli infection (Acute) Acute UTI (Acute) Infection due to ESBL-producing Escherichia coli Constipation Bacteremia Hypokalemia Acute urinary obstruction (Acute) Complication of Yin catheter (Acute) Hematuria (Acute) Cystitis (Acute) UTI (urinary tract infection) Acute urinary retention (Acute) Acute renal failure (Acute) Abdominal pain Arthritis of carpometacarpal (CMC) joint of right thumb Globus sensation Numbness and tingling of right leg Right leg pain Dyspnea on exertion Temporomandibular joint (TMJ) pain Blurry vision Daily headache Dizziness Osteoarthritis of carpometacarpal joint of left thumb Hyperlipidemia Unsatisfactory cervical cytology smear Routine gynecological examination Hot flashes Elevated platelet count Neck pain Pes anserinus bursitis of both knees Adjustment disorder with anxiety (Acute) Low back pain (Acute) Health care maintenance 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 (Acute) 1B- 2003-post abdominal hysterectomy with lymph node dissection/radiotherapy with chemo sensitization November 19, 2003 Stress incontinence in female (Acute) Urinary bladder incontinence Medical History Kidney stones Stress incontinence in female Adjustment disorder with anxiety Osteoarthritis of carpometacarpal (CMC) joint of left thumb Radiation cystitis Hyperlipidemia TMJ (temporomandibular joint syndrome) "only have problems when I eat something hard" Lumbar radiculopathy denies Cervical cancer S/p hysterectomy with lymph node dissection and XRT and chemo () Sensation of lump in throat occasionally per patient Schwann[place] post [place] [facility] [place]itis UNDER CONTROL GERD (gastroesophageal reflux disease) Surgical History History of cystoscopy cysto, mid-urethral sling 09/13/21: [place]: LMA#4 without issue History of surgery on left wrist left thumb CMC joint; [place] [facility] [place]x of foot surgery LEFT-BONE GRAFT History of esophagogastroduodenoscopy (EGD) History of colonoscopy History of hysterectomy total hyster 2005 Family History Father Myocardial infarction Hypertension Mother Myocardial infarction Hypertension Stroke Diabetes Grandfather (Maternal) Diabetes Social History Smoking Status: Never smoker Second Hand Exposure: No; Do You Dip or Chew Tobacco: No; Hx Alcohol Use: No Hx Substance Use: No Preferred Language: Romanian Communication Ability: Effective Visual Impairment: No Limitations 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: Normal Sinter Press Operator Required: No Beliefs That Will Affect Care: None marital status: Current Living Situation: Spouse current occupational status: employed current occupation: [employer] Feels Safe at Home: Yes Childhood Exposure to Second-Hand Smoke: Yes Diet: regular Dental Care, Regularly: Yes Physical Activity Frequency: 1-2 Times per Week Seatbelt Use: always Sunscreen Use: Yes Assistive Devices: Glasses Review of Systems Review of Systems: The patient denies chest pain, palpitations, shortness of breath, dyspnea on exertion, cough, lower extremity swelling, sore throat, chills, sweats, vomiting, diarrhea , constipation, blood in stool, lightheadedness, dizziness, headache, memory loss, loss of consciousness, rash, abnormal bruising, imbalance, focal or generalized weakness, numbness or tingling in arms or legs, or night sweats. The review of systems is otherwise negative other than for that already noted above, and at least 10 systems have been reviewed. Physical Exam Physical Exam: The patient is awake, alert and oriented 3, well developed and well nourished, normocephalic and atraumatic, lying in bed and in no acute distress. HEENT--PERRL, EOMI, mucous membranes and oropharynx mildly dry. Neck--supple. No JVD. No bruits. Thyroid normal, trachea midline, no adenopathy. Heart--normal S1 and S2. No murmurs, rubs or gallops. Lungs--clear bilaterally, no respiratory distress, no accessory muscle use. Abdomen--normal bowel sounds and soft. Mild right flank pain. Nondistended Extremities--no cyanosis or clubbing. No edema. Dermatologic--normal skin turgor, normal color, no abnormal lymph nodes, no rash. Neurologic--cranial nerves II through XII grossly intact. Rheumatologic--normal range of motion. Psychiatric--normal affect. Results & Data Results & Data Vital Signs (Past 12 Hours) Vital Signs Temp Pulse Pulse Resp BP BP Pulse Ox 01/14/24 02:23 37.0 C 90 18 111/75 92 01/14/24 01:58 88 16 104/66 94 01/14/24 01:47 97 01/14/24 01:27 96 H 01/14/24 01:27 96 H 22 126/84 93 01/14/24 00:39 38 C H 113 H 20 127/80 96 O2 Del Method 01/14/24 02:23 Room Air 01/14/24 01:58 Room Air 01/14/24 01:47 Room Air 01/14/24 01:27 01/14/24 01:27 Room Air 01/14/24 00:39 Room Air Laboratory Results Laboratory Results WBC 14.10 K/ul (4.8-10.8) H 01/14/24 01:12 RBC 3.50 M/uL (4.20-5.40) L 01/14/24 01:12 Hgb 11.0 g/dl (12.0-16.0) L 01/14/24 01:12 Hct 32.6 % (37.0-47.0) L 01/14/24 01:12 MCV 93.1 fL (80.0-100.0) 01/14/24 01:12 MCH 31.4 pg (25.0-34.0) 01/14/24 01:12 MCHC 33.7 g/dL (32.0-36.0) 01/14/24 01:12 RDW Std Deviation 39.8 fL (36.4-46.3) 01/14/24 01:12 RDW Coeff of Verito 11.8 % (11.5-14.5) 01/14/24 01:12 Plt Count 562 K/uL (130-400) H 01/14/24 01:12 MPV 9.2 fL (9.4-12.4) L 01/14/24 01:12 Immature Gran % (Auto) 0.4 % 01/14/24 01:12 Neut % (Auto) 82.3 % 01/14/24 01:12 Lymph % (Auto) 8.9 % 01/14/24 01:12 Bacon % (Auto) 8.1 % 01/14/24 01:12 Eos % (Auto) 0.1 % 01/14/24 01:12 Baso % (Auto) 0.2 % 01/14/24 01:12 Neut # (Auto) 11.60 K/uL (1.40-6.50) H 01/14/24 01:12 Lymph # (Auto) 1.26 K/uL (1.20-3.40) 01/14/24 01:12 [place] # (Auto) 1.14 K/uL (0.11-0.59) H 01/14/24 01:12 Eos # (Auto) 0.01 K/uL (0.00-0.50) 01/14/24 01:12 Baso # (Auto) 0.03 K/uL (0.00-0.20) 01/14/24 01:12 Immature Gran # (Auto) 0.06 K/uL (0.01-0.20) 01/14/24 01:12 Sodium 134 mmol/L (136-145) L 01/14/24 01:12 Potassium 3.6 mmol/L (3.5-5.1) 01/14/24 01:12 Chloride 100 mmol/L (98-107) 01/14/24 01:12 Carbon Dioxide 25 mmol/L (21-32) 01/14/24 01:12 Anion Gap 9 (3-11) 01/14/24 01:12 BUN 11 mg/dl (6-23) 01/14/24 01:12 Creatinine 0.64 mg/dl (0.6-1.2) 01/14/24 01:12 Est Cr Clr Drug Dosing 86.7 ml/min 01/14/24 01:12 Est GFR ( Amer) 117.3 ml/min 01/14/24 01:12 Est GFR (Non-Af Amer) 101.2 ml/min 01/14/24 01:12 BUN/Creatinine Ratio 17.2 (10-20) 01/14/24 01:12 Glucose 133 mg/dl (70-99(Fasting)) H 01/14/24 01:12 Lactate 1.1 mmol/L (0.4-2.0) 01/14/24 01:12 Calcium 9.1 mg/dl (8.6-10.3) 01/14/24 01:12 Magnesium 1.8 mg/dl (1.7-2.4) 01/14/24 01:12 Total Bilirubin 0.7 mg/dl (0.2-1.0) 01/14/24 01:12 Direct Bilirubin 0.1 mg/dl (0-0.2) 01/14/24 01:12 AST 16 U/L (13-39) 01/14/24 01:12 ALT 21 U/L (7-52) 01/14/24 01:12 Alkaline Phosphatase 59 U/L (34-104) 01/14/24 01:12 Troponin I High Sens 4.3 pg/ml (0-14) 01/14/24 01:12 Total Protein 7.3 gm/dl (6.0-8.3) 01/14/24 01:12 Albumin 4.0 gm/dl (3.4-5.0) 01/14/24 01:12 Urine Color Yellow 01/14/24 01:12 Urine Appearance Clear (Clear) 01/14/24 01:12 Urine pH 6.0 (4.5-7.5) 01/14/24 01:12 Ur Specific [place] 1.007 (1.000-1.030) 01/14/24 01:12 Urine Protein Trace (Negative) H 01/14/24 01:12 Urine Glucose (UA) Negative (Negative) 01/14/24 01:12 Urine Ketones Negative (Negative) 01/14/24 01:12 Urine Blood 1+ (Negative) H 01/14/24 01:12 Urine Nitrite Negative (Negative) 01/14/24 01:12 Urine Bilirubin Negative (Negative) 01/14/24 01:12 Urine Urobilinogen Negative (Negative) 01/14/24 01:12 Ur Leukocyte Esterase 3+ (Negative) H 01/14/24 01:12 Urine WBC (Auto) >50 /hpf (0-5) H 01/14/24 01:12 Urine RBC (Auto) 0-2 /hpf (0-2) 01/14/24 01:12 U Hyaline Cast (Auto) 0-2 /lpf (0-2) 01/14/24 01:12 U Epithel Cells (Auto) 0-2 /hpf (0-2) 01/14/24 01:12 Urine Bacteria (Auto) None Seen (None Seen) 01/14/24 01:12 Adenovirus (PCR) Not Detected (NotDetected) 01/14/24 01:12 B. pertussis DNA (PCR) Not Detected (NotDetected) 01/14/24 01:12 B.parapertussis DNA PCR Not Detected (NotDetected) 01/14/24 01:12 C. pneumoniae DNA (PCR) Not Detected (NotDetected) 01/14/24 01:12 Coronavirus OC43 (PCR) Not Detected (NotDetected) 01/14/24 01:12 Coronavirus HKU1 (PCR) Not Detected (NotDetected) 01/14/24 01:12 Coronavirus 229E (PCR) Not Detected (NotDetected) 01/14/24 01:12 SARS-CoV-2 (PCR) Not Detected (NotDetected) 01/14/24 01:12 Coronavirus NL63 (PCR) Not Detected (NotDetected) 01/14/24 01:12 Human Metapneumovir PCR Not Detected (NotDetected) 01/14/24 01:12 Influenza Type A (PCR) Not Detected (NotDetected) 01/14/24 01:12 Influenza Type B (PCR) Not Detected (NotDetected) 01/14/24 01:12 M. pneumoniae (PCR) Not Detected (NotDetected) 01/14/24 01:12 Parainfluenza 1 (PCR) Not Detected (NotDetected) 01/14/24 01:12 Parainfluenza 2 (PCR) Not Detected (NotDetected) 01/14/24 01:12 Parainfluenza 3 (PCR) Not Detected (NotDetected) 01/14/24 01:12 Parainfluenza 4 (PCR) Not Detected (NotDetected) 01/14/24 01:12 RSV (PCR) Not Detected (NotDetected) 01/14/24 01:12 Entero/Rhino (PCR) Not Detected (NotDetected) 01/14/24 01:12 Impressions Abdomen/Pelvis CT 01/14/24 02:18 Exam(s): CT ABDOMEN + PELVIS Without Contrast EXAM: CT Abdomen and Pelvis Without Intravenous Contrast CLINICAL HISTORY: Reason for exam: rlq pain, uti, sepsis. TECHNIQUE: Axial computed tomography images of the abdomen and pelvis without intravenous contrast. CTDI is 15.97 mGy and DLP is 100.47 mGy-cm. Automated exposure control was utilized for the study. A dose lowering technique was utilized adhering to the principles of ALARA. COMPARISON: 12/23/23 FINDINGS: Lung bases: Unremarkable. No mass. No consolidation. ABDOMEN: Liver: Calcified hepatic granulomata. Gallbladder and bile ducts: Unremarkable. No calcified stones. No ductal dilation. Pancreas: Unremarkable. No ductal dilation. Spleen: Unremarkable. No splenomegaly. Adrenals: Unremarkable. No mass. Kidneys and ureters: Left kidney and collecting system are normal. Mild right-sided hydroureteronephrosis with urothelial thickening in the right ureter. No obstructing ureteral stone. Stomach and bowel: Unremarkable. No mucosal thickening. No bowel obstruction. PELVIS: Appendix: Visualized segments of the appendix appear normal. Bladder: Bladder wall thickening and perivesicular fat stranding, possibly cystitis. No stones. Reproductive: Hysterectomy. ABDOMEN and PELVIS: Intraperitoneal space: Unremarkable. No free air, significant free fluid, or fluid collection. Bones/joints: No acute fracture or dislocation. Soft tissues: Unremarkable. Vasculature: Unremarkable. No abdominal aortic aneurysm. Lymph nodes: Unremarkable. No enlarged lymph nodes. IMPRESSION: 1. Bladder wall thickening and perivesicular fat stranding, possibly cystitis. 2. Mild right-sided hydroureteronephrosis with urothelial thickening in the right ureter. No obstructing ureteral stone. Findings may be on the basis of urinary tract infection, ureteral stricture, or recently passed kidney stone. 3. Correlate with urinalysis. Electronically signed by: Sheron Garcia M.D. 01/14/24 03:18 AM Code Status & VTE Plan Code Status Full code VTE Prophylaxis Plan VTE Prophylaxis will be ordered: Yes PG Care Time/CCT Total # of Minutes Spent Total Time Spent with Patient: Total time spent is greater than 50% in coordination of care (as documented) at patient's floor/unit and/or counseling patient: Coding Level of Care Code 13447 INT INP/OBS CARE 3/75MIN Diagnoses History of ESBL E. coli infection Z86.19 Acute UTI N39.0 Fever R50.9 Bacteremia R78.81 Complication of Yin catheter T83.9XXA Neck pain M54.2 Sepsis due to urinary tract infection A41.9; N39.0
--- NOTE | 2024-01-14 03:19 | CT Scan Report ---
Exam(s): CT ABDOMEN + PELVIS Without Contrast EXAM: CT Abdomen and Pelvis Without Intravenous Contrast CLINICAL HISTORY: Reason for exam: rlq pain, uti, sepsis. TECHNIQUE: Axial computed tomography images of the abdomen and pelvis without intravenous contrast. CTDI is 15.97 mGy and DLP is 100.47 mGy-cm. Automated exposure control was utilized for the study. A dose lowering technique was utilized adhering to the principles of ALARA. COMPARISON: 12/23/23 FINDINGS: Lung bases: Unremarkable. No mass. No consolidation. ABDOMEN: Liver: Calcified hepatic granulomata. Gallbladder and bile ducts: Unremarkable. No calcified stones. No ductal dilation. Pancreas: Unremarkable. No ductal dilation. Spleen: Unremarkable. No splenomegaly. Adrenals: Unremarkable. No mass. Kidneys and ureters: Left kidney and collecting system are normal. Mild right-sided hydroureteronephrosis with urothelial thickening in the right ureter. No obstructing ureteral stone. Stomach and bowel: Unremarkable. No mucosal thickening. No bowel obstruction. PELVIS: Appendix: Visualized segments of the appendix appear normal. Bladder: Bladder wall thickening and perivesicular fat stranding, possibly cystitis. No stones. Reproductive: Hysterectomy. ABDOMEN and PELVIS: Intraperitoneal space: Unremarkable. No free air, significant free fluid, or fluid collection. Bones/joints: No acute fracture or dislocation. Soft tissues: Unremarkable. Vasculature: Unremarkable. No abdominal aortic aneurysm. Lymph nodes: Unremarkable. No enlarged lymph nodes. IMPRESSION: 1. Bladder wall thickening and perivesicular fat stranding, possibly cystitis. 2. Mild right-sided hydroureteronephrosis with urothelial thickening in the right ureter. No obstructing ureteral stone. Findings may be on the basis of urinary tract infection, ureteral stricture, or recently passed kidney stone. 3. Correlate with urinalysis. Electronically signed by: Sheron Garcia M.D. 01/14/24 03:18 AM
[2024-01-14] MEDS ORDERED: ONDANSETRON INJ 2 MG/ML 2 ML VIAL IV PRN (03:33)
[2024-01-14] MEDS ORDERED: oxyCODONE/APAP 7.5/325MG TAB PO PRN (03:33)
[2024-01-14] MEDS ORDERED: POLYETHYLENE (MIRALAX) 17 GM PACK PO PRN (03:33)
[2024-01-14] MEDS: NSS + 20MEQ KCL 20 MEQ/1,000 ML BAG IV SCH (04:06)
[2024-01-14] MEDS: PIPERACILLIN/TAZOBACTAM 4.5 GM in DEXTROSE 5% MINI-B 100 ML IV SCH (07:44)
--- NOTE | 2024-01-14 08:00 | XRay Report ---
XR chest 1V portable HISTORY: Sepsis COMPARISON: Chest 11/29/2023. FINDINGS: The lungs are clear. Cardiac silhouette is normal in size. No pleural effusions. No pneumot horax. IMPRESSION: No acute process. ACT 112: Negative or not required by law. Electronically signed by: Ruben Castellanos M.D. 01/14/2024 7:59 AM
[2024-01-14] MEDS: DOCUSATE SODIUM/SENNA 50/8.6MG TAB PO SCH (08:58)
[2024-01-14] MEDS: VENLAFAXINE HCL XR 75 MG CAPXR PO SCH (08:58)
[2024-01-14] MEDS: SACCHAROMYCES BOULARDII 250 MG CAP PO SCH (08:58)
[2024-01-14] MEDS: PANTOprazole 40 MG TAB PO SCH (08:59)
[2024-01-14] MEDS: CHOLECALCIFEROL 25 MCG (1000 UNITS) TAB PO SCH (08:59)
--- NOTE | 2024-01-14 15:16 | Communication Note ---
Date of Service: January 14, 2024 Please refer to the H&P dictated earlier this morning for details of presentation on admission. In brief, this is a patient who had a right infected obstructing ureteric stone status post lithotripsy and stent placement on 12/20, status post stent removal on 12/31. She had recent admissions at [facility] from 12/22 to 12/24 and then 12/27 to 12/30. Her cultures on 12/27 was positive for ESBL E. coli UTI and bacteremia. She was discharged on ertapenem to complete a 10- day course on 01/06. 2 days after completing the course, she started developing recurrent symptoms of nausea, abdominal and flank pain and difficulty urinating. She thus presented with sepsis. The source seems to be UTI. She has been started on IV Zosyn until urine cultures are back with sensitivities, in case she developed resistance to ertapenem. Once the cultures are back, we will get infectious disease involved. The patient states that she is feeling better ever since she got started on antibiotics. Will continue to monitor.
[2024-01-14 15:32] LABS: A calco-baum cmplx NotReported Not Detected (NotDetected); Bact fragilis Not Reported Not Detected (NotDetected); Blood Culture Id Panel See PCR Comment (NotDetected); C auris Not Reported Not Detected (NotDetected); CTX-M Resistant Gene DETECTED (NotDetected); Calbicans Not Reported Not Detected (NotDetected); Candida glabrata Not Reported Not Detected (NotDetected); Candida krusei Not Reported Not Detected (NotDetected); Cneoformans/gatti Not Reported Not Detected (NotDetected); Cparapsilosis Not Reported Not Detected (NotDetected); E cloacae compx Not Reported Not Detected (NotDetected); Efaecalis Not Reported Not Detected (NotDetected); Efaecium Not Reported Not Detected (NotDetected); Enterobacterales DETECTED (NotDetected); Enterobacterales Not Reported DETECTED (NotDetected); Escherichia coli Not Reported DETECTED (NotDetected); H influenzae Not Reported Not Detected (NotDetected); IMP Resistant Gene Not Detected (NotDetected); K aerogenes Not Reported Not Detected (NotDetected); KPC Resistant Gene Not Detected (NotDetected); Koxytoca Not Reported Not Detected (NotDetected); Kpneumoniae grp Not Reported Not Detected (NotDetected); Lmonocyt Not Reported Not Detected (NotDetected); N meningitidis Not Reported Not Detected (NotDetected); NDM Resistant Gene Not Detected (NotDetected); OXA 48 Like Resistant Gene Not Detected (NotDetected); P aeruginosa Not Reported Not Detected (NotDetected); Proteus spp Not Reported Not Detected (NotDetected); Salmonella spp Not Reported Not Detected (NotDetected); Staph lugdunensis Not Reported Not Detected (NotDetected); Staph spp. Not Reported Not Detected (NotDetected); Staphaureus Not Reported Not Detected (NotDetected); Staphepi Not Reported Not Detected (NotDetected); Stenmaltophilia Not Reported Not Detected (NotDetected); Strep agal(GrpB) Not Reported Not Detected (NotDetected); Strep pneum Not Reported Not Detected (NotDetected); Strep pyog (GrpA) Not Reported Not Detected (NotDetected); Strep spp Not Reported Not Detected (NotDetected); VIM Resistant Gene Not Detected (NotDetected); mcr-1 Colistin Resistant Gene Not Detected (NotDetected)
[2024-01-14] MEDS: TAMSULOSIN HCL 0.4 MG CAP PO SCH (21:22)
[2024-01-15 06:50] LABS: Basophils # (auto) 0.04 K/uL (0.00-0.20); Basophils % (auto) 0.6 %; Eosinophils # (auto) 0.06 K/uL (0.00-0.50); Eosinophils % (auto) 0.9 %; Hematocrit (blood only) 31.6 % (37.0-47.0); Hemoglobin 10.4 g/dl (12.0-16.0); Immature Granulocytes # (auto) 0.02 K/uL (0.01-0.20); Immature Granulocytes % (auto) 0.3 %; Lymphocytes # (auto) 1.21 K/uL (1.20-3.40); Lymphocytes % (auto) 18.1 %; Mean Corpuscular Hemoglobin 31.2 pg (25.0-34.0); Mean Corpuscular Hgb Conc 32.9 g/dL (32.0-36.0); Mean Corpuscular Volume 94.9 fL (80.0-100.0); Mean Platelet Volume 9.6 fL (9.4-12.4); Monocytes # (auto) 0.73 K/uL (0.11-0.59); Monocytes % (auto) 10.9 %; Neutrophils # (auto) 4.62 K/uL (1.40-6.50); Neutrophils % (auto) 69.2 %; Platelet Count 488 K/uL (130-400); RDW Coefficient of Variation 11.9 % (11.5-14.5); RDW Standard Deviation 40.9 fL (36.4-46.3); Red Blood Count 3.33 M/uL (4.20-5.40); White Blood Count 6.68 K/ul (4.8-10.8)
[2024-01-15 07:10] LABS: Albumin Level 3.5 gm/dl (3.4-5.0); BUN Creatinine Ratio 9.4 (10-20); Creatinine Clr Calc Pharmacy 87.6 ml/min; Est GFR (African American) 117.3 ml/min; Est GFR (Non-African American) 101.2 ml/min; Magnesium 2.1 mg/dl (1.7-2.4); Phosphorus 2.9 mg/dl (2.5-4.9); Potassium 3.8 mmol/L (3.5-5.1)
[2024-01-15] MEDS: MEROPENEM 500 MG in SYRINGE (Loading Dose-Optional) IV STA (08:12)
[2024-01-15] MEDS: MEROPENEM 2,000 MG OVER 3 HRS IV SCH (11:44)
--- NOTE | 2024-01-15 15:01 | Hospitalist Progress Note ---
Date of Service January 15, 2024 Assessment & Plan (1) History of ESBL E. coli infection: (2) Acute UTI: (3) Fever: (4) Bacteremia: (5) Complication of Yin catheter: (6) Neck pain: (7) Sepsis due to urinary tract infection: Plan Sepsis due to UTI/recent ESBL E. coli UTI and bacteremia/recurrent urinary tract infection symptoms related to recent infected obstructing stone- Patient with leukocytosis, temperature of 38 C, fatigue, and generalized myalgias and arthralgias. Urine and blood culture growing gram-negative denice, awaiting further speciation and sensitivities. Given history of ESBL E. coli and given the fact that she was discharged on ertapenem, assuming that she is either incompletely treated or developed resistance to ertapenem Started her on meropenem today Consulted infectious disease Discontinued Florastor as she is likely to need central access and Florastor increases risk of fungemia. Leukocytosis resolved Cervical neck spasm and pain- Hold tizanidine, as it appears to be too sedating for patient Started baclofen 20 mg p.o. 3 times daily as needed GERD- Continue omeprazole/pantoprazole Anxiety- Continue venlafaxine Admission and Anticipated Discharge Date Admission Date: January 14, 2024 Subjective Patient feels better overall. No fever, no back/flank pain. Review of Systems Review of Systems: All systems reviewed & are unremarkable except as noted in Subjective Physical Exam Physical Exam: General: awake, conversant Heart: S1S2/ regular rate and rhythm, no murmur, rubs or gallops Lungs: clear to auscultation bilaterally Abdomen: soft/nontender/nondistended. No hepatosplenomegaly Extremities: no clubbing, cyanosis. No edema Mood: Appropriate, cooperative Results & Data Results & Data Vital Signs (Past 12 Hours) Vital Signs Temp Pulse Pulse Resp BP Pulse Ox O2 Del Method 01/15/24 11:18 36.7 C 81 18 100/73 95 Room Air 01/15/24 07:40 36.8 C 68 18 111/76 94 Room Air 01/15/24 07:00 75 Laboratory Results Abnormal lab results 01/14/24 01/15/24 Range/Units 01:45 05:21 RBC 3.33 L (4.20-5.40) M/uL Hgb 10.4 L (12.0-16.0) g/dl Hct 31.6 L (37.0-47.0) % Plt Count 488 H (130-400) K/uL [place] # (Auto) 0.73 H (0.11-0.59) K/uL BUN/Creatinine Ratio 9.4 L (10-20) Glucose 103 H (70-99(Fasting)) mg/dl Enterobacterales (PCR) DETECTED A (NotDetected) E. coli (PCR) DETECTED A (NotDetected) CTX-M Gene Resistance (PCR) DETECTED A* (NotDetected) PG Care Time/CCT Total # of Minutes Spent Total Time Spent with Patient: Total time spent is greater than 50% in coordination of care (as documented) at patient's floor/unit and/or counseling patient: Coding Level of Care Code 45958 SUB INP/OBS CARE 2/35MIN Diagnoses History of ESBL E. coli infection Z86.19 Acute UTI N39.0 Fever R50.9 Bacteremia R78.81 Complication of Yin catheter T83.9XXA Neck pain M54.2 Sepsis due to urinary tract infection A41.9; N39.0
--- NOTE | 2024-01-15 15:34 | Infectious Disease Consult ---
Date of Consultation January 15, 2024 Assessment & Plan (1) Infection due to ESBL-producing Escherichia coli: (2) Acute UTI: (3) Sepsis due to urinary tract infection: Plan 53 year old female with history of cervical cancer in 2003 status post hysterectomy with lymph node dissection,pelvic radiation, chemotherapy, radiation cystitis, urethral hypermobility, narrow She was then admitted 12/22 - 12/24 for urinary retention. CTAP showed significant bladder distention, mild bilateral hydronephrosis likely due to postprocedural blood clots causing bladder outlet obstruction. A Cleary catheter was placed and she was discharged. A punctate left renal calculus was noted as well. She was again admitted 12/26 to 12/30 with bladder pain and decreased urine output from the cleary. The cleary was exchanged.. She was found to have an ESBL E. coli UTI with ESBL Ecoli bacteremia. She was discharged and treated with 10 days of ertapenem which she completed on 01/06. Ureteral stents and Cleary removed on 01/01. She returns 01/13 with dysuria, decreased urinary output, fever, nausea, vomiting and abdominal pain. She denies, sweats, chills, chest pain, shortness of breath. In the ED she is febrile T-38, heart rate 113, respiratory rate 20, blood pressure 127/80, 96% on room air. Labs: WBC 14.1, platelets 562, BUN 11, creatinine 0.64. Urinalysis 3+ leukocyte esterase, greater than 50 WBCs, negative nitrites. Respiratory viral panel negative. CTAP with bladder wall thickening and perivascular fat stranding possibly cystitis, mild right-sided hydroureteronephrosis with ureteral thickening in the right ureter. No obstructing stones. Findings may be secondary to UTI, ureteral stricture or recently passed kidney stone. Blood cultures w/ GNR in 1 out of 4 bottles ( BC ID it is noted as E. coli -CTXM gene resistance). Urine culture with >100 K GNR, ID consulted for recurrent ESBL E. coli UTI. She received a dose of ertapenem, Zosyn and is now on meropenem. She feels well. Her fevers have resolved. She is no longer having dysuria or abdominal pain. She has no Cleary in place. Micro Urine culture 01/13 > 100 K gram-negative rods Blood culture 01/13 1/4 bottles gram-negative denice (BC ID E. coli CTX-M gene resistance) Prior micro: Urine culture 12/27 >100K ESBL E. coli Culture 12/27 ESBL E. coli Antibiotics Ertapenem 01/12 Zosyn 01/13 Meropenem 01/14 #Recurrent ESBL E. coli UTI #Sepsis CTAP shows mild right-sided hydro and ureteral nephrosis with ureterocele thickening in the right ureter. Findings suggestive of ureteral stricture or recently passed stone. Recommendations Continue meropenem pending E. coli susceptibilities. Will likely be sensitive t o ertapenem. If so can start ertapenem 1 g IV daily. Plan for 7 days total of therapy Consider Urology evaluation. Thank you for this consult. ID will continue to follow Jean-Claude Shrestha MD, MPH Infectious Disease [facility] Call [phone] with questions. Consultation Information Consultation was provided via telemedicine using two-way real-time interactive telecommunication between the patient and the telemedicine provider. For the duration of the visit, the provider was performing the assessment from a di fferent facility than the patient. This includesuse of bluetooth stethoscope forauscultationperformed by the telepresenter that the telemedicine provider can hear if described in the physical exam. [employer] [address] [employer] contact information: Please call [facility] Call Center [phone]. (Phone Number For Physician Use Only) After establishing a telemedicine visit, patient was: Patient was verified with two unique identifiers Time Spent with Patient: Initial => 75 min History of Present Illness Reason for Consultation: Recurrent ESBL ecoli UTI Requesting Physician: Tez Duval MD Attending Physician: Tez Duval MD History of Present Illness 53 year old female with history of cervical cancer in 2003 status post hysterectomy with lymph node dissection,pelvic radiation, chemotherapy, radiation cystitis, urethral hypermobility, narrow She was then admitted 12/22 - 12/24 for urinary retention. CTAP showed significant bladder distention, mild bilateral hydronephrosis likely due to postprocedural blood clots causing bladder outlet obstruction. A Cleary catheter was placed and she was discharged. A punctate left renal calculus was noted as well. She was again admitted 12/26 to 12/30 with bladder pain and decreased urine output from the cleary. The cleary was exchanged.. She was found to have an ESBL E. coli UTI with ESBL Ecoli bacteremia. She was discharged and treated with 10 days of ertapenem which she completed on 01/06. Ureteral stents and Cleary removed on 01/01. She returns 01/13 with dysuria, decreased urinary output, fever, nausea, vomiting and abdominal pain. She denies, sweats, chills, chest pain, shortness of breath. In the ED she is febrile T-38, heart rate 113, respiratory rate 20, blood pressure 127/80, 96% on room air. Labs: WBC 14.1, platelets 562, BUN 11, creatinine 0.64. Urinalysis 3+ leukocyte esterase, greater than 50 WBCs, negative nitrites. Respiratory viral panel negative. CTAP with bladder wall thickening and perivascular fat stranding possibly cystitis, mild right-sided hydroureteronephrosis with ureteral thickening in the right ureter. No obstructing stones. Findings may be secondary to UTI, ureteral stricture or recently passed kidney stone. Blood cultures w/ GNR in 1 out of 4 bottles ( BC ID it is noted as E. coli -CTXM gene resistance). Urine culture with >100 K GNR, ID consulted for recurrent ESBL E. coli UTI. She received a dose of ertapenem, Zosyn and is now on meropenem. She feels well. Her fevers have resolved. She is no longer having dysuria or abdominal pain. She has no Cleary in place. Allergies Allergy/AdvReac Type Severity Reaction Status Date / Time chlorpheniramine AdvReac Intermediate HEART RACES Verified 01/14/24 01:35 dextromethorphan AdvReac Intermediate HEART RACED Verified 01/14/24 01:35 phenylpropanolamine AdvReac Intermediate HEART RACES Verified 01/14/24 01:35 promethazine AdvReac Intermediate HALLUCINATI Verified 01/14/24 01:35 ONS pseudoephedrine AdvReac Intermediate HEART RACED Verified 01/14/24 01:35 amitriptyline AdvReac Unknown PT DENIES Verified 01/14/24 01:35 THIS ALLERGY citalopram [From Celexa] AdvReac Unknown PT DENIES Verified 01/14/24 01:35 THIS ALLERGY escitalopram [From Lexapro] AdvReac Unknown PT DENIES Verified 01/14/24 01:35 THIS ALLERGY sertraline AdvReac Unknown PT DENIES Verified 01/14/24 01:35 THIS ALLERGY solifenacin [From Vesicare] AdvReac Unknown Unknown Verified 01/14/24 01:35 Home Medications Medication Instructions Recorded Confirmed Type cholecalciferol (vitamin D3) 25 1,000 unit PO QAM 07/12/18 01/14/24 History mcg (1,000 unit) capsule (Vitamin D3) multivitamin 1 tab PO QAM 07/12/18 01/14/24 History omeprazole 40 mg capsule,delayed 40 mg PO QAM #90 caps 08/24/23 01/14/24 Rx release ascorbic acid (vitamin C) 500 mg 500 mg PO QAM 12/13/23 01/14/24 History capsule oxycodone-acetaminophen 7.5 mg-325 1 tab PO Q8H PRN pain #7 tabs 12/21/23 01/14/24 Rx mg tablet (Percocet) phenazopyridine 200 mg tablet 200 mg PO Q8H PRN pain #10 tabs 12/21/23 01/14/24 Rx (Pyridium) tamsulosin 0.4 mg capsule 0.4 mg PO HS #30 caps 12/21/23 01/14/24 Rx venlafaxine 75 mg capsule,extended 75 mg PO QAM 12/23/23 01/14/24 History release 24 hr aspirin 81 mg tablet,delayed 81 mg PO DAILY 12/28/23 01/14/24 History release polyethylene glycol 3350 17 gram 17 g PO DAILY PRN constipation 12/31/23 01/14/24 Rx oral powder packet (Miralax) #100 ea sennosides 8.6 mg-docusate sodium 1 tab PO BID #90 tabs 12/31/23 01/14/24 Rx 50 mg tablet (Senokot-S) tizanidine 4 mg tablet 4 mg PO Q8H PRN muscle spasticity 01/01/24 01/14/24 Rx #30 tabs Patient History Medical History Kidney stones Stress incontinence in female Adjustment disorder with anxiety Osteoarthritis of carpometacarpal (CMC) joint of left thumb Radiation cystitis Hyperlipidemia TMJ (temporomandibular joint syndrome) "only have problems when I eat something hard" Lumbar radiculopathy denies Cervical cancer S/p hysterectomy with lymph node dissection and XRT and chemo () Sensation of lump in throat occasionally per patient Schwannoma post resection - 03/14/2019 - in [facility] [place] Colitis UNDER CONTROL GERD (gastroesophageal reflux disease) Surgical History History of cystoscopy cysto, mid-urethral sling 09/13/21: [place]: LMA#4 without issue History of surgery on left wrist left thumb CMC joint; 11/16/23 [facility] [place] Hx of foot surgery LEFT-BONE GRAFT History of esophagogastroduodenoscopy (EGD) History of colonoscopy History of hysterectomy total hyster 2004 Family History Father Myocardial infarction Hypertension Mother Myocardial infarction Hypertension Stroke Diabetes Grandfather (Maternal) Diabetes Social History Smoking Status: Never smoker Second Hand Exposure: No; Do You Dip or Chew Tobacco: No; Hx Alcohol Use: No Hx Substance Use: No Preferred Language: Italian Communication Ability: Effective Visual Impairment: No Limitations 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: Normal Administrative Support Specialist Required: No Beliefs That Will Affect Care: None marital status: Current Living Situation: Spouse current occupational status: employed current occupation: [employer] Other Information That Helps Us Care for You: No Feels Safe at Home: Yes Safety Concerns: Feels Safe At This Time Childhood Exposure to Second-Hand Smoke: Yes Diet: regular Dental Care, Regularly: Yes Physical Activity Frequency: 1-2 Times per Week Seatbelt Use: always Sunscreen Use: Yes Assistive Devices: None Review of System A 10 point ROS obtained. Pertinent positives as per HPI Physical Exam Physical Exam: Gen- NAD HEENT- Anicteric sclera Neck- supple Abd- soft, NT, ND - No suprapubic or CVA tenderness Ext- No edema Neuro-AAO*3 Psych- Normal mood, cooperative Results & Data Vital Signs (Past 12 Hours) Vital Signs Temp Pulse Pulse Resp BP Pulse Ox O2 Del Method 01/15/24 11:18 36.7 C 81 18 100/73 95 Room Air 01/15/24 07:40 36.8 C 68 18 111/76 94 Room Air 01/15/24 07:00 75 Laboratory Results Laboratory Results - last 48 hr 01/14/24 01/14/24 01/15/24 01:12 01:45 05:21 WBC 14.10 H 6.68 RBC 3.50 L 3.33 L Hgb 11.0 L 10.4 L Hct 32.6 L 31.6 L MCV 93.1 94.9 MCH 31.4 31.2 MCHC 33.7 32.9 RDW Std Deviation 39.8 40.9 RDW Coeff of Verito 11.8 11.9 Plt Count 562 H 488 H MPV 9.2 L 9.6 Immature Gran % (Auto) 0.4 0.3 Neut % (Auto) 82.3 69.2 Lymph % (Auto) 8.9 18.1 [place] % (Auto) 8.1 10.9 Eos % (Auto) 0.1 0.9 Baso % (Auto) 0.2 0.6 Neut # (Auto) 11.60 H 4.62 Lymph # (Auto) 1.26 1.21 [place] # (Auto) 1.14 H 0.73 H Eos # (Auto) 0.01 0.06 Baso # (Auto) 0.03 0.04 Immature Gran # (Auto) 0.06 0.02 Sodium 134 L 141 Potassium 3.6 3.8 Chloride 100 107 Carbon Dioxide 25 28 Anion Gap 9 6 BUN 11 6 Creatinine 0.64 0.64 Est Cr Clr Drug Dosing 86.7 87.6 Est GFR ( Amer) 117.3 117.3 Est GFR (Non-Af Amer) 101.2 101.2 BUN/Creatinine Ratio 17.2 9.4 L Glucose 133 H 103 H Lactate 1.1 Calcium 9.1 9.0 Phosphorus 2.9 Magnesium 1.8 2.1 Total Bilirubin 0.7 Direct Bilirubin 0.1 AST 16 ALT 21 Alkaline Phosphatase 59 Troponin I High Sens 4.3 Total Protein 7.3 Albumin 4.0 3.5 Procalcitonin 0.04 Urine Color Yellow Urine Appearance Clear Urine pH 6.0 Ur Specific [place] 1.007 Urine Protein Trace H Urine Glucose (UA) Negative Urine Ketones Negative Urine Blood 1+ H Urine Nitrite Negative Urine Bilirubin Negative Urine Urobilinogen Negative Ur Leukocyte Esterase 3+ H Urine WBC (Auto) >50 H Urine RBC (Auto) 0-2 U Hyaline Cast (Auto) 0-2 U Epithel Cells (Auto) 0-2 Urine Bacteria (Auto) None Seen Adenovirus (PCR) Not Detected B. pertussis DNA (PCR) Not Detected B.parapertussis DNA PCR Not Detected C. pneumoniae DNA (PCR) Not Detected Coronavirus OC43 (PCR) Not Detected Coronavirus HKU1 (PCR) Not Detected Coronavirus 229E (PCR) Not Detected SARS-CoV-2 (PCR) Not Detected Coronavirus NL63 (PCR) Not Detected Enterobacterales (PCR) DETECTED A E. coli (PCR) DETECTED A Human Metapneumovir PCR Not Detected Influenza Type A (PCR) Not Detected Influenza Type B (PCR) Not Detected M. pneumoniae (PCR) Not Detected Parainfluenza 1 (PCR) Not Detected Parainfluenza 2 (PCR) Not Detected Parainfluenza 3 (PCR) Not Detected Parainfluenza 4 (PCR) Not Detected RSV (PCR) Not Detected Entero/Rhino (PCR) Not Detected mcr-1 Colistin Res Gene PCR Not Detected blaIMP Car res Gene PCR Not Detected KPC-Carbap Res Gene PCR Not Detected blaNDM Car Res Gene PCR Not Detected OXA-48 Carbapenem Resis Gene (PCR) Not Detected blaVIM Car Res Gene PCR Not Detected CTX-M Gene Resistance (PCR) DETECTED A* Bld Cult ID Panel PCR See PCR Comment Diagnostic Findings Microbiology 01/14/24 01:45 Blood Aerobic Blood Culture - Preliminary No growth in Aerobic bottle after 24 hours. 01/14/24 01:45 Blood Anaerobic Blood Culture - Preliminary Gram negative bacilli 01/14/24 01:12 Urine,Straight Cath Urine Culture - Preliminary Gram negative bacilli 01/14/24 01:12 Blood Aerobic Blood Culture - Preliminary No growth in Aerobic bottle after 24 hours. 01/14/24 01:12 Blood Anaerobic Blood Culture - Preliminary No growth in Anaerobic bottle after 24 hours. Chest X-Ray 01/14/24 00:57 XR chest 1V portable HISTORY: Sepsis COMPARISON: Chest 11/29/2023. FINDINGS: The lungs are clear. Cardiac silhouette is normal in size. No pleural effusions. No pneumothorax. IMPRESSION: No acute process. ACT 112: Negative or not required by law. Electronically signed by: Ruben Castellanos M.D. 01/14/2024 7:59 AM Abdomen/Pelvis CT 01/14/24 02:18 Exam(s): CT ABDOMEN + PELVIS Without Contrast EXAM: CT Abdomen and Pelvis Without Intravenous Contrast CLINICAL HISTORY: Reason for exam: rlq pain, uti, sepsis. TECHNIQUE: Axial computed tomography images of the abdomen and pelvis without intravenous contrast. CTDI is 15.97 mGy and DLP is 100.47 mGy-cm. Automated exposure control was utilized for the study. A dose lowering technique was utilized adhering to the principles of ALARA. COMPARISON: 12/23/23 FINDINGS: Lung bases: Unremarkable. No mass. No consolidation. ABDOMEN: Liver: Calcified hepatic granulomata. Gallbladder and bile ducts: Unremarkable. No calcified stones. No ductal dilation. Pancreas: Unremarkable. No ductal dilation. Spleen: Unremarkable. No splenomegaly. Adrenals: Unremarkable. No mass. Kidneys and ureters: Left kidney and collecting system are normal. Mild right-sided hydroureteronephrosis with urothelial thickening in the right ureter. No obstructing ureteral stone. Stomach and bowel: Unremarkable. No mucosal thickening. No bowel obstruction. PELVIS: Appendix: Visualized segments of the appendix appear normal. Bladder: Bladder wall thickening and perivesicular fat stranding, possibly cystitis. No stones. Reproductive: Hysterectomy. ABDOMEN and PELVIS: Intraperitoneal space: Unremarkable. No free air, significant free fluid, or fluid collection. Bones/joints: No acute fracture or dislocation. Soft tissues: Unremarkable. Vasculature: Unremarkable. No abdominal aortic aneurysm. Lymph nodes: Unremarkable. No enlarged lymph nodes. IMPRESSION: 1. Bladder wall thickening and perivesicular fat stranding, possibly cystitis. 2. Mild right-sided hydroureteronephrosis with urothelial thickening in the right ureter. No obstructing ureteral stone. Findings may be on the basis of urinary tract infection, ureteral stricture, or recently passed kidney stone. 3. Correlate with urinalysis. Electronically signed by: Sheron Garcia M.D. 01/14/24 03:18 AM Medications Administered Home Medications Medication Instructions Recorded Confirmed Last Taken cholecalciferol (vitamin D3) 25 1,000 unit PO QAM 07/12/18 01/14/24 01/13/24 mcg (1,000 unit) capsule (Vitamin D3) multivitamin 1 tab PO QAM 07/12/18 01/14/24 01/13/24 omeprazole 40 mg capsule,delayed 40 mg PO QAM #90 caps 08/24/23 01/14/24 01/13/24 release ascorbic acid (vitamin C) 500 mg 500 mg PO QAM 12/13/23 01/14/24 01/13/24 capsule oxycodone-acetaminophen 7.5 mg-325 1 tab PO Q8H PRN pain #7 tabs 12/21/23 01/14/24 12/22/23 mg tablet (Percocet) phenazopyridine 200 mg tablet 200 mg PO Q8H PRN pain #10 tabs 12/21/23 01/14/24 12/22/23 (Pyridium) tamsulosin 0.4 mg capsule 0.4 mg PO HS #30 caps 12/21/23 01/14/24 01/13/24 venlafaxine 75 mg capsule,extended 75 mg PO QAM 12/23/23 01/14/24 01/13/24 release 24 hr aspirin 81 mg tablet,delayed 81 mg PO DAILY 12/28/23 01/14/24 01/13/24 release polyethylene glycol 3350 17 gram 17 g PO DAILY PRN constipation 12/31/23 01/14/24 Unknown oral powder packet (Miralax) #100 ea sennosides 8.6 mg-docusate sodium 1 tab PO BID #90 tabs 12/31/23 01/14/24 01/13/24 50 mg tablet (Senokot-S) tizanidine 4 mg tablet 4 mg PO Q8H PRN muscle spasticity 01/01/24 01/14/24 Unknown #30 tabs Active Medications Generic Name Dose Route Start Last Admin Trade Name Freq PRN Reason Stop Dose Admin Meropenem 2,000 mg/ Sodium 100 mls @ 33.333 mls/hr 01/15/24 12:00 01/15/24 14:45 Chloride IV 01/29/24 11:59 Infused Q8H GEOVANNA Infusion Protocol Pantoprazole Sodium 40 mg 01/14/24 09:00 01/15/24 11:38 Pantoprazole 40 Mg Tab PO 02/13/24 08:59 40 mg QAM GEOVANNA Administration Senna/Docusate Sodium 1 tab 01/14/24 09:00 01/15/24 11:39 Docusate Sodium/Senna 50/8.6mg Tab PO 02/13/24 08:59 1 tab BID GEOVANNA Administration Tamsulosin HCl 0.4 mg 01/14/24 21:00 01/14/24 21:22 Tamsulosin Hcl 0.4 Mg Cap PO 02/13/24 20:59 0.4 mg HS GEOVANNA Administration Venlafaxine HCl 75 mg 01/14/24 09:00 01/15/24 11:38 Venlafaxine Hcl Xr 75 Mg Capxr PO 02/13/24 08:59 75 mg QAM GEOVANNA Administration Vitamin D 25 mcg 01/14/24 09:00 01/15/24 11:39 Cholecalciferol 25 Mcg (1000 Units) Tab PO 02/13/24 08:59 25 mcg QAM GEOVANNA Administration
--- NOTE | 2024-01-15 23:21 | Electrocardiogram Report ---
Test Reason : Blood Pressure : / mmHG Vent. Rate : 091 BPM Atrial Rate : 091 BPM P-R Int : 172 ms QRS Dur : 078 ms QT Int : 364 ms P-R-T Axes : 060 057 044 degrees QTc Int : 447 ms Normal sinus rhythm Normal ECG When compared with ECG of 29-NOV-2023 11:16, No significant change was found Confirmed by Octaviano Betancur ([id number]) on 01/15/2024 11:20:53 PM Referred By: REFERRED SELF Confirmed By:Octaviano Betancur
[2024-01-16 06:27] LABS: Basophils # (auto) 0.03 K/uL (0.00-0.20); Basophils % (auto) 0.6 %; Eosinophils # (auto) 0.07 K/uL (0.00-0.50); Eosinophils % (auto) 1.5 %; Hematocrit (blood only) 33.1 % (37.0-47.0); Hemoglobin 10.8 g/dl (12.0-16.0); Immature Granulocytes # (auto) 0.01 K/uL (0.01-0.20); Immature Granulocytes % (auto) 0.2 %; Lymphocytes # (auto) 1.11 K/uL (1.20-3.40); Lymphocytes % (auto) 23.2 %; Mean Corpuscular Hemoglobin 30.8 pg (25.0-34.0); Mean Corpuscular Hgb Conc 32.6 g/dL (32.0-36.0); Mean Corpuscular Volume 94.3 fL (80.0-100.0); Mean Platelet Volume 9.2 fL (9.4-12.4); Monocytes # (auto) 0.46 K/uL (0.11-0.59); Monocytes % (auto) 9.6 %; Neutrophils # (auto) 3.11 K/uL (1.40-6.50); Neutrophils % (auto) 64.9 %; Platelet Count 516 K/uL (130-400); RDW Coefficient of Variation 11.6 % (11.5-14.5); RDW Standard Deviation 39.6 fL (36.4-46.3); Red Blood Count 3.51 M/uL (4.20-5.40); White Blood Count 4.79 K/ul (4.8-10.8)
[2024-01-16 06:31] LABS: Albumin Level 3.7 gm/dl (3.4-5.0); BUN Creatinine Ratio 17.2 (10-20); Calcium 9.3 mg/dl (8.6-10.3); Creatinine Clr Calc Pharmacy 87.6 ml/min; Est GFR (African American) 117.3 ml/min; Est GFR (Non-African American) 101.2 ml/min; Magnesium 2.1 mg/dl (1.7-2.4); Phosphorus 3.4 mg/dl (2.5-4.9); Potassium 3.9 mmol/L (3.5-5.1)
--- NOTE | 2024-01-16 08:27 | Urology Consultation ---
Date of Consultation January 16, 2024 Assessment & Plan (1) Acute UTI: (2) History of ESBL E. coli infection: (3) Sepsis due to urinary tract infection: Plan Patient is currently hemodynamically stable, afebrile without leukocytosis, kidney function normal Imaging continues to show mild right-sided hydronephrosis Urine and blood cultures both grew E. coli ESBL Labs reviewedcreatinine 0.64, WBC 4.79 Continue with antibiotics per ID Patient voiding spontaneously, recommend bladder scan as needed due to history of urinary retention and feelings of incomplete bladder emptying We discussed possible right ureteral stent placement for maximum drainage of right kidney, at this time surgical intervention is not needed as patient is stable Recommend we make patient n.p.o. at midnight in case of change in patient's status, we will reassess in the morning Continue supportive care, antibiotics and medical management per hospital medicine service Please contact urology team if any worsening or changes in patient's condition- this could mean urgent right ureteral stent intervention will follow History of Present Illness Attending Physician: Tez Duval MD History of Present Illness 53-year-old female with history of cervical cancer and radiation cystitis who reports back to the ER on 01/14/2024 with fevers. She has been admitted 3 times in the last month with recurrent UTIs, bacteremia. On 12/21/2023 she underwent cystoscopy with ureteroscopy insertion of a right stent. During the procedure she was found to have narrowing of the distal ureter with a stricture. She had a Yin in place. Both right stent and Yin catheter were removed on 01/01/2024 at urology outpatient. She reported back to the ER in 01/14/2024 with fevers, dysuria, decreased urine output, N/V. Labs showed leukocytosis at 14.10. Urine cultures and blood cultures grew E. coli ESBL CT 01/14/24 shows mild right-sided hydroureteronephrosis with ureteral thickening in the right ureter without any obstructing ureteral stone. Bladder wall thickening and perivascular fat stranding possible cystitis. She has received antibiotics during her admission including a dose of ertapenem, Zosyn and is now on meropenem. She is now afebrile without leukocytosis. Labs reviewed: 01/16/2024 WBCs 4.79 Hemoglobin 10.8 Creatinine 0.64 Patient is resting comfortably in bed. Denies dysuria, gross hematuria, fevers, chills, nausea, and vomiting. She is having baseline urinary symptoms per prior to returning back to the ER she did admit to potential urinary retention. When she had the stent in place she handles appropriately and said she did not have urinary frequency, dysuria, gross hematuria or flank or abdominal discomfort. Allergies Allergy/AdvReac Type Severity Reaction Status Date / Time chlorpheniramine AdvReac Intermediate HEART RACES Verified 01/14/24 01:35 dextromethorphan AdvReac Intermediate HEART RACED Verified 01/14/24 01:35 phenylpropanolamine AdvReac Intermediate HEART RACES Verified 01/14/24 01:35 promethazine AdvReac Intermediate HALLUCINATI Verified 01/14/24 01:35 ONS pseudoephedrine AdvReac Intermediate HEART RACED Verified 01/14/24 01:35 amitriptyline AdvReac Unknown PT DENIES Verified 01/14/24 01:35 THIS ALLERGY citalopram [From Celexa] AdvReac Unknown PT DENIES Verified 01/14/24 01:35 THIS ALLERGY escitalopram [From Lexapro] AdvReac Unknown PT DENIES Verified 01/14/24 01:35 THIS ALLERGY sertraline AdvReac Unknown PT DENIES Verified 01/14/24 01:35 THIS ALLERGY solifenacin [From Vesicare] AdvReac Unknown Unknown Verified 01/14/24 01:35 Home Medications Medication Instructions Recorded Confirmed Type cholecalciferol (vitamin D3) 25 1,000 unit PO QAM 07/12/18 01/14/24 History mcg (1,000 unit) capsule (Vitamin D3) multivitamin 1 tab PO QAM 07/12/18 01/14/24 History omeprazole 40 mg capsule,delayed 40 mg PO QAM #90 caps 08/24/23 01/14/24 Rx release ascorbic acid (vitamin C) 500 mg 500 mg PO QAM 12/13/23 01/14/24 History capsule oxycodone-acetaminophen 7.5 mg-325 1 tab PO Q8H PRN pain #7 tabs 12/21/23 01/14/24 Rx mg tablet (Percocet) phenazopyridine 200 mg tablet 200 mg PO Q8H PRN pain #10 tabs 12/21/23 01/14/24 Rx (Pyridium) tamsulosin 0.4 mg capsule 0.4 mg PO HS #30 caps 12/21/23 01/14/24 Rx venlafaxine 75 mg capsule,extended 75 mg PO QAM 12/23/23 01/14/24 History release 24 hr aspirin 81 mg tablet,delayed 81 mg PO DAILY 12/28/23 01/14/24 History release polyethylene glycol 3350 17 gram 17 g PO DAILY PRN constipation 12/31/23 01/14/24 Rx oral powder packet (Miralax) #100 ea sennosides 8.6 mg-docusate sodium 1 tab PO BID #90 tabs 12/31/23 01/14/24 Rx 50 mg tablet (Senokot-S) tizanidine 4 mg tablet 4 mg PO Q8H PRN muscle spasticity 01/01/24 01/14/24 Rx #30 tabs Patient History Medical History Kidney stones Stress incontinence in female Adjustment disorder with anxiety Osteoarthritis of carpometacarpal (CMC) joint of left thumb Radiation cystitis Hyperlipidemia TMJ (temporomandibular joint syndrome) "only have problems when I eat something hard" Lumbar radiculopathy denies Cervical cancer S/p hysterectomy with lymph node dissection and XRT and chemo () Sensation of lump in throat occasionally per patient Schwannoma post resection - 03/14/2019 - in [facility] [place] Colitis UNDER CONTROL GERD (gastroesophageal reflux disease) Surgical History History of cystoscopy cysto, mid-urethral sling 09/13/21: [place]: LMA#4 without issue History of surgery on left wrist left thumb CMC joint; 11/16/23 [facility] [place] Hx of foot surgery LEFT-BONE GRAFT History of esophagogastroduodenoscopy (EGD) History of colonoscopy History of hysterectomy total hyster 2004 Family History Father Myocardial infarction Hypertension Mother Myocardial infarction Hypertension Stroke Diabetes Grandfather (Maternal) Diabetes Social History Smoking Status: Never smoker Second Hand Exposure: No; Do You Dip or Chew Tobacco: No; Hx Alcohol Use: No Hx Substance Use: No Preferred Language: Hungarian Communication Ability: Effective Visual Impairment: No Limitations 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: Normal Supply Technician Required: No Beliefs That Will Affect Care: None marital status: Current Living Situation: Spouse current occupational status: employed current occupation: [employer] Other Information That Helps Us Care for You: No Feels Safe at Home: Yes Safety Concerns: Feels Safe At This Time Childhood Exposure to Second-Hand Smoke: Yes Diet: regular Dental Care, Regularly: Yes Physical Activity Frequency: 1-2 Times per Week Seatbelt Use: always Sunscreen Use: Yes Assistive Devices: None Review of Systems Constitutional: as per Subjective / HPI Genitourinary: as per Subjective / HPI Physical Exam Constitutional: well developed and well nourished; no acute distress Respiratory: normal respiratory effort and able to speak in complete sentences Musculoskeletal: Extremities: extremities normal to inspection Psychiatric: Orientation: alert and oriented x 3 Results & Data Vital Signs (Past 12 Hours) Vital Signs Temp Pulse Pulse Resp BP Pulse Ox O2 Del Method 01/16/24 07:29 36.7 C 63 16 107/69 96 Room Air 01/16/24 02:40 36.4 C L 77 18 106/72 97 Room Air 01/15/24 23:24 36.5 C 60 18 103/68 99 Room Air 01/15/24 21:54 61 PG Care Time/CCT Total # of Minutes Spent Total Time Spent with Patient: Total time spent is greater than 50% in coordination of care (as documented) at patient's floor/unit and/or counseling patient: Coding Level of Care Code 83609 IN/OBS CONSULT LVL 3,45M Diagnoses Acute UTI N39.0 History of ESBL E. coli infection Z86.19 Sepsis due to urinary tract infection A41.9; N39.0
--- NOTE | 2024-01-16 11:45 | Hospitalist Progress Note ---
Date of Service January 16, 2024 Assessment & Plan (1) History of ESBL E. coli infection: (2) Acute UTI: (3) Fever: (4) Bacteremia: (5) Complication of Yin catheter: (6) Neck pain: (7) Sepsis due to urinary tract infection: Plan Sepsis due to UTI/recent ESBL E. coli UTI and bacteremia/recurrent urinary tract infection symptoms related to recent infected obstructing stone- Patient with leukocytosis, temperature of 38 C, fatigue, and generalized myalgias and arthralgias on admission Urine and blood culture growing ESBL E coli again Currently on Meropenem. ID on board, recommending 7 days of IV ABx. Patient had come to [facility] in the past for IV ABx. structural manager involved. Urology consulted because imaging still shows R hydronephrosis. They will reassess her tomorrow for further plans. NPO post MN. Leukocytosis resolved Cervical neck spasm and pain- Hold tizanidine, as it appears to be too sedating for patient Started baclofen 20 mg p.o. 3 times daily as needed GERD- Continue omeprazole/pantoprazole Anxiety- Continue venlafaxine Admission and Anticipated Discharge Date Admission Date: January 14, 2024 Subjective Patient feels well. No more fever, flank pain. Review of Systems Review of Systems: All systems reviewed & are unremarkable except as noted in Subjective Physical Exam Physical Exam: General: awake, conversant Heart: S1S2/ regular rate and rhythm, no murmur, rubs or gallops Lungs: clear to auscultation bilaterally Abdomen: soft/nontender/nondistended. No hepatosplenomegaly Extremities: no clubbing, cyanosis. No edema Mood: Appropriate, cooperative Results & Data Results & Data Vital Signs (Past 12 Hours) Vital Signs Temp Pulse Resp BP Pulse Ox O2 Del Method 01/16/24 10:43 36.6 C 85 15 107/73 92 Room Air 01/16/24 07:29 36.7 C 63 16 107/69 96 Room Air 01/16/24 02:40 36.4 C L 77 18 106/72 97 Room Air PG Care Time/CCT Total # of Minutes Spent Total Time Spent with Patient: Total time spent is greater than 50% in coordination of care (as documented) at patient's floor/unit and/or counseling patient: Coding Level of Care Code 77827 SUB INP/OBS CARE 2/35MIN Diagnoses History of ESBL E. coli infection Z86.19 Acute UTI N39.0 Fever R50.9 Bacteremia R78.81 Complication of Yin catheter T83.9XXA Neck pain M54.2 Sepsis due to urinary tract infection A41.9; N39.0
--- NOTE | 2024-01-16 14:13 | Infectious Disease Progress Nt ---
Date of Service January 16, 2024 Assessment & Plan (1) Infection due to ESBL-producing Escherichia coli: (2) Acute UTI: (3) Sepsis due to urinary tract infection: Plan 53 year old female with history of cervical cancer in 2003 status post hysterectomy with lymph node dissection,pelvic radiation, chemotherapy, radiation cystitis, urethral hypermobility, narrow She was then admitted 12/22 - 12/24 for urinary retention. CTAP showed significant bladder distention, mild bilateral hydronephrosis likely due to postprocedural blood clots causing bladder outlet obstruction. A Cleary catheter was placed and she was discharged. A punctate left renal calculus was noted as well. She was again admitted 12/26 to 12/30 with bladder pain and decreased urine output from the cleary. The cleary was exchanged.. She was found to have an ESBL E. coli UTI with ESBL Ecoli bacteremia. She was discharged and treated with 10 days of ertapenem which she completed on 01/06. Ureteral stents and Cleary removed on 01/01. She returns 01/13 with dysuria, decreased urinary output, fever, nausea, vomiting and abdominal pain. She denies, sweats, chills, chest pain, shortness of breath. In the ED she is febrile T-38, heart rate 113, respiratory rate 20, blood pressure 127/80, 96% on room air. Labs: WBC 14.1, platelets 562, BUN 11, creatinine 0.64. Urinalysis 3+ leukocyte esterase, greater than 50 WBCs, negative nitrites. Respiratory viral panel negative. CTAP with bladder wall thickening and perivascular fat stranding possibly cystitis, mild right-sided hydroureteronephrosis with ureteral thickening in the right ureter. No obstructing stones. Findings may be secondary to UTI, ureteral stricture or recently passed kidney stone. Blood cultures w/ GNR in 1 out of 4 bottles ( BC ID it is noted as E. coli -CTXM gene resistance). Urine culture with >100 K GNR, ID consulted for recurrent ESBL E. coli UTI. She received a dose of ertapenem, Zosyn and is now on meropenem. She feels well. Her fevers have resolved. She is no longer having dysuria or abdominal pain. She has no Cleary in place. Micro Urine culture 01/13 > 100 K Esbl Ecoli Blood culture 01/13 1/4 bottles ESBL Ecoli Prior micro: Urine culture 12/27 >100K ESBL E. coli Culture 12/27 ESBL E. coli Antibiotics Ertapenem 01/12 Zosyn 01/13 Meropenem 01/14- ongoing #Recurrent ESBL E. coli UTI #Sepsis, resolved # Mild R sided hydronephrosis BC and UC with ESBL ECOLI. CTAP shows mild right-sided hydro and ureteral nephrosis with ureterocele thickening in the right ureter. Findings suggestive of ureteral stricture or recently passed stone. No stent, abscess, or stones. Urinating on her own, Urology evaluated and may place R sided ureteral stent if she becomes unstable or clinically worsens. Recommendations Discontinued meropenem Started ertapenem 1 g IV daily. Plan for 10 days total of effective therapy if no stent ( EOT 01/22 ) Follow up Urology final plan. IF stent placed, then would treat for 7 d post stent placement ( in that case EOT TBD) Monitor CBC, BMP, Lft on therapy Jean-Claude Shrestha MD, MPH Infectious Disease [facility] Call [phone] with questions. Admission and Anticipated Discharge Date Admission Date: January 14, 2024 Subjective This patient recommendation is based on a telemedicine consult request which was completed asynchronously through chart review and information provided by the primary physician. The patient was not seen or examined today. The evaluation is consultative in nature and all patient care and treatment decisions can either be accepted or rejected by the patient's primary hospital-based treating physician using their own independent medical judgment for their patient. Time Spent Reviewing Chart: 11 - 20 minutes Afebrile Leukocytosis resolved plt 516 UC and BC w/ ESBL Ecoli Results & Data Vital Signs (Past 12 Hours) Vital Signs Temp Pulse Resp BP Pulse Ox O2 Del Method 01/16/24 10:43 36.6 C 85 15 107/73 92 Room Air 01/16/24 07:29 36.7 C 63 16 107/69 96 Room Air 01/16/24 02:40 36.4 C L 77 18 106/72 97 Room Air Laboratory Results Short CBC 01/16/24 Range/Units 05:46 WBC 4.79 L (4.8-10.8) K/ul Hgb 10.8 L (12.0-16.0) g/dl Hct 33.1 L (37.0-47.0) % Plt Count 516 H (130-400) K/uL BMP 01/16/24 05:46 Sodium 140 Potassium 3.9 Chloride 104 Carbon Dioxide 28 BUN 11 Creatinine 0.64 Glucose 100 H Calcium 9.3 Liver Function 01/16/24 Range/Units 05:46 Albumin 3.7 (3.4-5.0) gm/dl Diagnostic Findings Microbiology 01/14/24 01:12 Urine,Straight Cath Urine Culture - Final Escherichia coli ESBL 01/14/24 01:45 Blood Aerobic Blood Culture - Preliminary No growth in Aerobic bottle after 48 hours. 01/14/24 01:45 Blood Anaerobic Blood Culture - Preliminary Escherichia coli ESBL 01/14/24 01:12 Blood Aerobic Blood Culture - Preliminary No growth in Aerobic bottle after 48 hours. 01/14/24 01:12 Blood Anaerobic Blood Culture - Preliminary No growth in Anaerobic bottle after 48 hours. Chest X-Ray 01/14/24 00:57 XR chest 1V portable HISTORY: Sepsis COMPARISON: Chest 11/29/2023. FINDINGS: The lungs are clear. Cardiac silhouette is normal in size. No pleural effusions. No pneumothorax. IMPRESSION: No acute process. ACT 112: Negative or not required by law. Electronically signed by: Ruben Castellanos M.D. 01/14/2024 7:59 AM Abdomen/Pelvis CT 01/14/24 02:18 Exam(s): CT ABDOMEN + PELVIS Without Contrast EXAM: CT Abdomen and Pelvis Without Intravenous Contrast CLINICAL HISTORY: Reason for exam: rlq pain, uti, sepsis. TECHNIQUE: Axial computed tomography images of the abdomen and pelvis without intravenous contrast. CTDI is 15.97 mGy and DLP is 100.47 mGy-cm. Automated exposure control was utilized for the study. A dose lowering technique was utilized adhering to the principles of ALARA. COMPARISON: 12/23/23 FINDINGS: Lung bases: Unremarkable. No mass. No consolidation. ABDOMEN: Liver: Calcified hepatic granulomata. Gallbladder and bile ducts: Unremarkable. No calcified stones. No ductal dilation. Pancreas: Unremarkable. No ductal dilation. Spleen: Unremarkable. No splenomegaly. Adrenals: Unremarkable. No mass. Kidneys and ureters: Left kidney and collecting system are normal. Mild right-sided hydroureteronephrosis with urothelial thickening in the right ureter. No obstructing ureteral stone. Stomach and bowel: Unremarkable. No mucosal thickening. No bowel obstruction. PELVIS: Appendix: Visualized segments of the appendix appear normal. Bladder: Bladder wall thickening and perivesicular fat stranding, possibly cystitis. No stones. Reproductive: Hysterectomy. ABDOMEN and PELVIS: Intraperitoneal space: Unremarkable. No free air, significant free fluid, or fluid collection. Bones/joints: No acute fracture or dislocation. Soft tissues: Unremarkable. Vasculature: Unremarkable. No abdominal aortic aneurysm. Lymph nodes: Unremarkable. No enlarged lymph nodes. IMPRESSION: 1. Bladder wall thickening and perivesicular fat stranding, possibly cystitis. 2. Mild right-sided hydroureteronephrosis with urothelial thickening in the right ureter. No obstructing ureteral stone. Findings may be on the basis of urinary tract infection, ureteral stricture, or recently passed kidney stone. 3. Correlate with urinalysis. Electronically signed by: Sheron Garcia M.D. 01/14/24 03:18 AM Medications Administered Home Medications Medication Instructions Recorded Confirmed Last Taken cholecalciferol (vitamin D3) 25 1,000 unit PO QAM 07/12/18 01/14/24 01/13/24 mcg (1,000 unit) capsule (Vitamin D3) multivitamin 1 tab PO QAM 07/12/18 01/14/24 01/13/24 omeprazole 40 mg capsule,delayed 40 mg PO QAM #90 caps 08/24/23 01/14/24 01/13/24 release ascorbic acid (vitamin C) 500 mg 500 mg PO QAM 12/13/23 01/14/24 01/13/24 capsule oxycodone-acetaminophen 7.5 mg-325 1 tab PO Q8H PRN pain #7 tabs 12/21/23 01/14/24 12/22/23 mg tablet (Percocet) phenazopyridine 200 mg tablet 200 mg PO Q8H PRN pain #10 tabs 12/21/23 01/14/24 12/22/23 (Pyridium) tamsulosin 0.4 mg capsule 0.4 mg PO HS #30 caps 12/21/23 01/14/24 01/13/24 venlafaxine 75 mg capsule,extended 75 mg PO QAM 12/23/23 01/14/24 01/13/24 release 24 hr aspirin 81 mg tablet,delayed 81 mg PO DAILY 12/28/23 01/14/24 01/13/24 release polyethylene glycol 3350 17 gram 17 g PO DAILY PRN constipation 12/31/23 01/14/24 Unknown oral powder packet (Miralax) #100 ea sennosides 8.6 mg-docusate sodium 1 tab PO BID #90 tabs 12/31/23 01/14/24 01/13/24 50 mg tablet (Senokot-S) tizanidine 4 mg tablet 4 mg PO Q8H PRN muscle spasticity 01/01/24 01/14/24 Unknown #30 tabs Active Medications Generic Name Dose Route Start Last Admin Trade Name Freq PRN Reason Stop Dose Admin Meropenem 2,000 mg/ Sodium 100 mls @ 33.333 mls/hr 01/15/24 12:00 01/16/24 13:44 Chloride IV 01/29/24 11:59 33.3 mls/hr Q8H GEOVANNA Administration Protocol Pantoprazole Sodium 40 mg 01/14/24 09:00 01/16/24 09:51 Pantoprazole 40 Mg Tab PO 02/13/24 08:59 40 mg QAM GEOVANNA Administration Senna/Docusate Sodium 1 tab 01/14/24 09:00 01/16/24 09:50 Docusate Sodium/Senna 50/8.6mg Tab PO 02/13/24 08:59 1 tab BID GEOVANNA Administration Tamsulosin HCl 0.4 mg 01/14/24 21:00 01/15/24 20:02 Tamsulosin Hcl 0.4 Mg Cap PO 02/13/24 20:59 0.4 mg HS GEOVANNA Administration Venlafaxine HCl 75 mg 01/14/24 09:00 01/16/24 09:50 Venlafaxine Hcl Xr 75 Mg Capxr PO 02/13/24 08:59 75 mg QAM GEOVANNA Administration Vitamin D 25 mcg 01/14/24 09:00 01/16/24 09:52 Cholecalciferol 25 Mcg (1000 Units) Tab PO 02/13/24 08:59 25 mcg QAM GEOVANNA Administration
[2024-01-17 06:32] LABS: Magnesium 2.3 mg/dl (1.7-2.4)
[2024-01-17 07:09] LABS: Albumin Globulin Ratio 1.1 (0.9-2); Albumin Level 3.8 gm/dl (3.4-5.0); BUN Creatinine Ratio 18.3 (10-20); Bilirubin,Total 0.3 mg/dl (0.2-1.0); Calcium 9.5 mg/dl (8.6-10.3); Creatinine Clr Calc Pharmacy 78.6 ml/min; Est GFR (African American) 111.9 ml/min; Est GFR (Non-African American) 96.6 ml/min; Globulin 3.5 gm/dl (2.5-4.0); Potassium 4.4 mmol/L (3.5-5.1); Total Protein 7.3 gm/dl (6.0-8.3)
[2024-01-17 07:12] LABS: Basophils # (auto) 0.03 K/uL (0.00-0.20); Basophils % (auto) 0.8 %; Eosinophils # (auto) 0.06 K/uL (0.00-0.50); Eosinophils % (auto) 1.6 %; Hematocrit (blood only) 34.3 % (37.0-47.0); Hemoglobin 11.3 g/dl (12.0-16.0); Immature Granulocytes # (auto) 0.01 K/uL (0.01-0.20); Immature Granulocytes % (auto) 0.3 %; Lymphocytes # (auto) 1.36 K/uL (1.20-3.40); Lymphocytes % (auto) 37.4 %; Mean Corpuscular Hemoglobin 31.2 pg (25.0-34.0); Mean Corpuscular Hgb Conc 32.9 g/dL (32.0-36.0); Mean Corpuscular Volume 94.8 fL (80.0-100.0); Mean Platelet Volume 9.4 fL (9.4-12.4); Monocytes # (auto) 0.31 K/uL (0.11-0.59); Monocytes % (auto) 8.5 %; Neutrophils # (auto) 1.87 K/uL (1.40-6.50); Neutrophils % (auto) 51.4 %; Platelet Count 565 K/uL (130-400); RDW Coefficient of Variation 11.5 % (11.5-14.5); RDW Standard Deviation 39.4 fL (36.4-46.3); Red Blood Count 3.62 M/uL (4.20-5.40); White Blood Count 3.64 K/ul (4.8-10.8)
--- NOTE | 2024-01-17 08:43 | Urology Progress Note ---
Date of Service January 17, 2024 Assessment & Plan (1) Acute UTI: (2) History of ESBL E. coli infection: (3) Sepsis due to urinary tract infection: Plan Patient is currently hemodynamically stable, afebrile without leukocytosis, kidney function normal Urine and blood cultures both grew E. coli ESBL Continue with antibiotics per ID Patient voiding spontaneously, recommend bladder scan after next void due to history of urinary retention and feelings of incomplete bladder emptying We discussed possible right ureteral stent placement for maximum drainage of right kidney, at this time surgical intervention is not needed as patient is stable-can reevaluate if there is any change in patient's condition Continue supportive care, antibiotics and medical management per hospital medicine service Please contact urology team if any worsening or changes in patient's condition- this could mean urgent right ureteral stent intervention will follow Admission and Anticipated Discharge Date Admission Date: January 14, 2024 Subjective Patient seen and examined at bedside this morning She is awake and resting in bed comfortably She denied any flank or abdominal pain She is voiding spontaneously and does admit to small voids Denies fevers/chills, nausea or vomiting Review of Systems Constitutional: as per Subjective / HPI Genitourinary: as per Subjective / HPI Physical Exam Constitutional: well developed and well nourished; no acute distress Respiratory: normal respiratory effort and able to speak in complete sentences Musculoskeletal: Extremities: extremities normal to inspection Psychiatric: Orientation: alert and oriented x 3 Results & Data Vital Signs (Past 12 Hours) Vital Signs Temp Pulse Pulse Resp BP Pulse Ox O2 Del Method 01/17/24 07:43 36.5 C 69 16 108/73 93 Room Air 01/17/24 02:06 36.7 C 73 18 119/81 97 Room Air 01/16/24 22:49 36.7 C 70 18 101/68 94 Room Air 01/16/24 22:00 76 PG Care Time/CCT Total # of Minutes Spent Total Time Spent with Patient: Total time spent is greater than 50% in coordination of care (as documented) at patient's floor/unit and/or counseling patient: Coding Level of Care Code 37160 SUB INP/OBS CARE 2/35MIN Diagnoses Acute UTI N39.0 History of ESBL E. coli infection Z86.19 Sepsis due to urinary tract infection A41.9; N39.0
--- NOTE | 2024-01-17 09:14 | Hospitalist Progress Note ---
Date of Service January 17, 2024 Assessment & Plan (1) History of ESBL E. coli infection: Plan: acute complicated UTI poa, sepsis and confirmed bacteremia, moderate right hydro, urology not planning intervention ID consult recommends 10 days of treatment on Ertapenem, LD 01/23/24 feeling of incomplete voiding check post void residual 01/17/24 (2) Neck pain: Plan: Cervical neck spasm and pain- Hold tizanidine, as it appears to be too sedating for patient Started baclofen 20 mg p.o. 3 times daily as needed Plan GERD Continue omeprazole/pantoprazole Anxiety- Continue venlafaxine Admission and Anticipated Discharge Date Admission Date: January 14, 2024 Results & Data Results & Data Vital Signs (Past 12 Hours) Vital Signs Temp Pulse Pulse Resp BP Pulse Ox O2 Del Method 01/17/24 07:43 97.7 F 69 16 108/73 93 Room Air 01/17/24 02:06 98.1 F 73 18 119/81 97 Room Air 01/16/24 22:49 98.1 F 70 18 101/68 94 Room Air 01/16/24 22:00 76 PG Care Time/CCT Total # of Minutes Spent Total Time Spent with Patient: Total time spent is greater than 50% in coordination of care (as documented) at patient's floor/unit and/or counseling patient: Coding Diagnoses History of ESBL E. coli infection Z86.19 Neck pain M54.2
--- NOTE | 2024-01-17 11:03 | Infectious Disease Progress Nt ---
Date of Service January 17, 2024 Assessment & Plan (1) Infection due to ESBL-producing Escherichia coli: (2) Acute UTI: (3) Sepsis due to urinary tract infection: Plan This is a 53 year old female with history of cervical cancer in 2003 status post hysterectomy with lymph node dissection,pelvic radiation, chemotherapy, radiation cystitis, urethral hypermobility, narrow She was then admitted 12/22 - 12/24 for urinary retention. CTAP showed significant bladder distention, mild b ilateral hydronephrosis likely due to postprocedural blood clots causing bladder outlet obstruction. A Cleary catheter was placed and she was discharged. A punctate left renal calculus was noted as well. She was again admitted 12/26 to 12/30 with bladder pain and decreased urine output from the cleary. The cleary was exchanged. She was found to have an ESBL E. coli UTI with ESBL Ecoli bacteremia. She was discharged and treated with 10 days of ertapenem which she completed on 01/06. Ureteral stents and Cleary removed on 01/01. She returns 01/13 with dysuria, decreased urinary output, fever, nausea, vomiting and abdominal pain. She denies, sweats, chills, chest pain, shortness of breath. In the ED she is febrile T-38, heart rate 113, respiratory rate 20, blood pressure 127/80, 96% on room air. Labs: WBC 14.1, platelets 562, BUN 11, creatinine 0.64. Urinalysis 3+ leukocyte esterase, greater than 50 WBCs, negative nitrites. Respiratory viral panel negative. CTAP with bladder wall thi ckening and perivascular fat stranding possibly cystitis, mild right-sided hydroureteronephrosis with ureteral thickening in the right ureter. No obstructing stones. Findings may be secondary to UTI, ureteral stricture or recently passed kidney stone. Blood cultures w/ GNR in 1 out of 4 bottles ( BCID shows E. coli w/ CTXM gene resistance). Urine culture with >100 K GNR, ID consulted for recurrent ESBL E. coli UTI. She received a dose of ertapenem, Zosyn and is now on meropenem. She feels well. Her fevers have resolved. She is no longer having dysuria or abdominal pain. She has no Cleary in place. Micro Urine culture 01/13 > 100 K Esbl Ecoli Blood culture 7/21 1/4 bottles ESBL Ecoli Prior micro: Urine culture 12/27 >100K ESBL E. coli Culture 12/27 ESBL E. coli Antibiotics Ertapenem 01/12 Zosyn 01/13 Meropenem 01/14- 01/15 ertapenem 01/15- ongoing #Recurrent ESBL E. coli UTI #Sepsis, resolved # Mild R sided hydronephrosis BC and UC with ESBL ECOLI. CTAP shows mild right-sided hydro and ureteral nephrosis with ureterocele thickening in the right ureter. Findings suggestive of ureteral stricture or recently passed stone. No stent, abscess, or stones. Urinating on her own. Leukocytosis resolved. Urology evaluated and no surgical intervention planned. They will pursue R sided ureteral stent if she becomes unstable or clinically worsens. Recommendations Continue ertapenem 1 g IV daily. Plan for 10 days total Abx therapy if no stent ( EOT 01/22 ) Follow up Urology final plan. IF stent placed, then would treat for 7 d post stent placement ( in that case EOT TBD) At the time of my visit today, there is no plan for intervention. Monitor CBC, BMP, Lft on abx therapy Follow up with Urology outpatient as scheduled. ID will sign off. Call with questions. Jean-Claude Shrestha MD, MPH Infectious Disease [facility] Call [phone] with questions. Admission and Anticipated Discharge Date Admission Date: January 14, 2024 Subjective Subsequent visit was provided via telemedicine using two-way real-time inter active telecommunication between the patient and the telemedicine provider. For the duration of the visit, the provider was performing the assessment from a different facility than the patient. This includesuse of bluetooth stethoscope forauscultationperformed by the telepresenter that the telemedicine provider can hear if described in the physical exam. [employer] contact information: Please call [facility] . (Phone Number For Physician Use Only) After establishing a telemedicine visit, patient was: Patient was verified with two unique identifiers Time Spent with Patient: Subsequent => 25 min Afebrile Denies dysuria, change in urination, back or abdominal pain. She feel well and back to her baseline No plan as of this AM for renal stent Physical Exam Physical Exam: Gen- NAD HEENT- Anicteric sclera Neck- supple Abd- soft, NT, ND - No suprapubic or CVA tenderness Ext- No edema Neuro-AAO*3 Psych- Normal mood, cooperative Results & Data Vital Signs (Past 12 Hours) Vital Signs Temp Pulse Pulse Resp BP Pulse Ox O2 Del Method 01/17/24 10:32 70 01/17/24 10:31 36.3 C L 66 16 105/71 95 Room Air 01/17/24 07:43 36.5 C 69 16 108/73 93 Room Air 01/17/24 02:06 36.7 C 73 18 119/81 97 Room Air Laboratory Results Short CBC 01/17/24 Range/Units 05:25 WBC 3.64 L (4.8-10.8) K/ul Hgb 11.3 L (12.0-16.0) g/dl Hct 34.3 L (37.0-47.0) % Plt Count 565 H (130-400) K/uL BMP 01/17/24 05:25 Sodium 140 Potassium 4.4 Chloride 101 Carbon Dioxide 30 BUN 13 Creatinine 0.71 Glucose 98 Calcium 9.5 Liver Function 01/17/24 Range/Units 05:25 Total Bilirubin 0.3 (0.2-1.0) mg/dl AST 18 (13-39) U/L ALT 20 (7-52) U/L Alkaline Phosphatase 53 (34-104) U/L Albumin 3.8 (3.4-5.0) gm/dl Diagnostic Findings Microbiology 01/14/24 01:12 Urine,Straight Cath Urine Culture - Final Escherichia coli ESBL 01/14/24 01:45 Blood Aerobic Blood Culture - Preliminary No growth in Aerobic bottle after 48 hours. 01/14/24 01:45 Blood Anaerobic Blood Culture - Preliminary Escherichia coli ESBL 01/14/24 01:12 Blood Aerobic Blood Culture - Preliminary No growth in Aerobic bottle after 48 hours. 01/14/24 01:12 Blood Anaerobic Blood Culture - Preliminary No growth in Anaerobic bottle after 48 hours. Medications Administered Home Medications Medication Instructions Recorded Confirmed Last Taken cholecalciferol (vitamin D3) 25 1,000 unit PO QAM 07/12/18 01/14/24 01/13/24 mcg (1,000 unit) capsule (Vitamin D3) multivitamin 1 tab PO QAM 07/12/18 01/14/24 01/13/24 omeprazole 40 mg capsule,delayed 40 mg PO QAM #90 caps 08/24/23 01/14/24 01/13/24 release ascorbic acid (vitamin C) 500 mg 500 mg PO QAM 12/13/23 01/14/24 01/13/24 capsule oxycodone-acetaminophen 7.5 mg-325 1 tab PO Q8H PRN pain #7 tabs 12/21/23 01/14/24 12/22/23 mg tablet (Percocet) phenazopyridine 200 mg tablet 200 mg PO Q8H PRN pain #10 tabs 12/21/23 01/14/24 12/22/23 (Pyridium) tamsulosin 0.4 mg capsule 0.4 mg PO HS #30 caps 12/21/23 01/14/24 01/13/24 venlafaxine 75 mg capsule,extended 75 mg PO QAM 12/23/23 01/14/24 01/13/24 release 24 hr aspirin 81 mg tablet,delayed 81 mg PO DAILY 12/28/23 01/14/24 01/13/24 release polyethylene glycol 3350 17 gram 17 g PO DAILY PRN constipation 12/31/23 01/14/24 Unknown oral powder packet (Miralax) #100 ea sennosides 8.6 mg-docusate sodium 1 tab PO BID #90 tabs 12/31/23 01/14/24 01/13/24 50 mg tablet (Senokot-S) tizanidine 4 mg tablet 4 mg PO Q8H PRN muscle spasticity 01/01/24 01/14/24 Unknown #30 tabs Active Medications Generic Name Dose Route Start Last Admin Trade Name [facility] PRN Reason Stop Dose Admin Acetaminophen 650 mg 01/14/24 03:33 01/17/24 12:06 Acetaminophen 325 Mg Tab PO 02/13/24 03:32 650 mg Q4H PRN Administration Pain or Fever Ertapenem 1,000 mg/ Syringe 10 mls @ 2 mls/min 01/17/24 12:00 01/17/24 12:06 IV 01/27/24 11:59 2 mls/min Q24H GEOVANNA Administration Pantoprazole Sodium 40 mg 01/14/24 09:00 01/17/24 09:12 Pantoprazole 40 Mg Tab PO 02/13/24 08:59 40 mg QAM GEOVANNA Administration Senna/Docusate Sodium 1 tab 01/14/24 09:00 01/17/24 09:12 Docusate Sodium/Senna 50/8.6mg Tab PO 02/13/24 08:59 1 tab BID GEOVANNA Administration Tamsulosin HCl 0.4 mg 01/14/24 21:00 01/16/24 20:21 Tamsulosin Hcl 0.4 Mg Cap PO 02/13/24 20:59 0.4 mg HS GEOVANNA Administration Venlafaxine HCl 75 mg 01/14/24 09:00 01/17/24 09:12 Venlafaxine Hcl Xr 75 Mg Capxr PO 02/13/24 08:59 75 mg QAM GEOVANNA Administration Vitamin D 25 mcg 01/14/24 09:00 01/17/24 09:12 Cholecalciferol 25 Mcg (1000 Units) Tab PO 02/13/24 08:59 25 mcg QAM GEOVANNA Administration
[2024-01-17] MEDS: ERTAPENEM SODIUM 1,000 MG in SYRINGE 0 ML IV SCH (12:06)
[2024-01-17] MEDS: ACETAMINOPHEN 325 MG TAB PO PRN (12:06)
--- NOTE | 2024-01-17 16:49 | Discharge Summary ---
Discharge Summary Date of Service January 17, 2024 Principal Dx & Hospital Course #1 = Principal Diagnosis (1) History of ESBL E. coli infection: acute complicated UTI poa, sepsis and confirmed bacteremia, moderate right hydro, urology not planning intervention ID consult recommends 10 days of treatment on Ertapenem, LD 01/23/24 feeling of incomplete voiding check post void residual 01/17/24 (2) Neck pain: Cervical neck spasm and pain- Hold tizanidine, as it appears to be too sedating for patient Started baclofen 20 mg p.o. 3 times daily as needed Plan GERD Continue omeprazole/pantoprazole Anxiety- Continue venlafaxine Notes For Next Care Provider esbl bacteremia, ID recommends outpt treatment , ua check at discharge to assure clearing will have treatment in [facility] Admission HPI Per Admitting Provider The patient is a 53-year-old female with a past medical history including ESBL E. coli UTI and bacteremia, acute renal failure, TMJ, hyperlipidemia, low back pain, radiation cystitis, urinary stress incontinence, GERD and cervical neck muscle spasm. Recent admissions [place] from 12/22-12/25/2023, and then 12/27- 12/31/2023. She had initially undergone lithotripsy for a right-sided ureteral stone, and then later was found on urine culture from 12/28/2023 to have ESBL E. coli UTI and bacteremia on blood cultures. She was initially placed on cefepime, but then was changed to ertapenem, and completed a 10-day course of therapy on January 06. Patient was feeling somewhat improved over the next 2 days, however, few days ago she started developing recurrent symptoms of nausea without vomiting, right sided abdominal and flank pain, and difficulty urinating. For these reasons, she presented to the ED for assessment this evening. She is also have a worsening of her usual right-sided cervical neck pain. Discharge Exam awake alert and appropriate cardiac exam is regular lungs are clear Updated Medication List Medication Instructions Recorded Confirmed Type cholecalciferol (vitamin D3) 25 1,000 unit PO QAM 07/12/18 01/14/24 History mcg (1,000 unit) capsule (Vitamin D3) multivitamin 1 tab PO QAM 07/12/18 01/14/24 History omeprazole 40 mg capsule,delayed 40 mg PO QAM #90 caps 08/24/23 01/14/24 Rx release ascorbic acid (vitamin C) 500 mg 500 mg PO QAM 12/13/23 01/14/24 History capsule oxycodone-acetaminophen 7.5 mg-325 1 tab PO Q8H PRN pain #7 tabs 12/21/23 01/14/24 Rx mg tablet (Percocet) phenazopyridine 200 mg tablet 200 mg PO Q8H PRN pain #10 tabs 12/21/23 01/14/24 Rx (Pyridium) tamsulosin 0.4 mg capsule 0.4 mg PO HS #30 caps 12/21/23 01/14/24 Rx venlafaxine 75 mg capsule,extended 75 mg PO QAM 12/23/23 01/14/24 History release 24 hr aspirin 81 mg tablet,delayed 81 mg PO DAILY 12/28/23 01/14/24 History release polyethylene glycol 3350 17 gram 17 g PO DAILY PRN constipation 12/31/23 01/14/24 Rx oral powder packet (Miralax) #100 ea sennosides 8.6 mg-docusate sodium 1 tab PO BID #90 tabs 12/31/23 01/14/24 Rx 50 mg tablet (Senokot-S) tizanidine 4 mg tablet 4 mg PO Q8H PRN muscle spasticity 01/01/24 01/14/24 Rx #30 tabs ertapenem 1 gram solution for 1 g IV DAILY #6 doses 01/17/24 Rx injection Hospital Stay Data Consultations 01/14/24 01:55 ED Decision to Admit Stat 01/15/24 08:32 Consult Infectious Diseases Routine 01/16/24 08:05 Consult Urology Routine Diagnostic Imagining Performed 01/14/24 02:18 CT abd pelvis wo con Stat 01/17/24 10:45 US guide vascular access Routine Pending Results Patient Have Any Pending Studies at Discharge: No Discharge Instructions Given to Patient (Per Discharging Provider) please complete your IV antibiotics thru the medical treatment unit please follow up with Urology after discharge The medical treatment unit will remove the IV after your last dose please submit a urine after your treatment is complete Total Time Total Time Spent Total Time Spent (In Minutes): It required greater than 30 minutes to prepare this patient for discharge. Coding Level of Care Code 56922 INP/OBS DISCH >30 MIN Diagnoses History of ESBL E. coli infection Z86.19 Neck pain M54.2
== END 2024-01-17 14:20 | disposition home or self-care (01) | DRG 872 ==
LOC: ED 00:36 → SUATTDRO 02:43 → EDINP 02:43 → 4W 03:34